=== PATIENT | male | born 1945 | race Caucasian/White ===

== ENCOUNTER → 2018-09-27 11:40 | Outpatient (CLI) | payer MEDICARE, SELFPAY ==
[2018-09-28 17:19] LABS: PSA, Free 2.38 ng/mL; Prostate Specific Ag 4.7 ng/mL (0.0-4.0)
== END ==
PROVIDERS: Visit Provider Urology
DX: R97.20 Elevated prostate specific antigen [PSA] (principal)
CPT/HCPCS: 36415; 84153; 84154

== ENCOUNTER → 2019-06-14 14:18 | Outpatient (CLI) | payer MEDICARE, SELFPAY ==
--- NOTE | 2019-06-14 14:22 | XR_ITS ---
PROCEDURE: XR KNEE RT 4V CLINICAL INDICATION: bilateral knee pain COMPARISON: No exams were available for comparison FINDINGS: Bone density is normal. There is moderate narrowing of the medial compartment and small calcification related to the medial and lateral meniscus areas. There is visualization of intramedullary laura and fixation screws involving proximal tibia. There is a healed fibular shaft fracture. There is no acute fracture or indirect evidence of a joint effusion. There are posterior soft tissue vascular calcified plaques. IMPRESSION: No acute process. Evidence of prior surgery. Healed right fibular fracture. 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 Dictated by: Nathan Stockton 06/14/2019 14:47 Electronically signed by Nathan Stockton in [facility] 06/14/2019 14:47
--- NOTE | 2019-06-14 14:22 | XR_ITS ---
PROCEDURE: XR KNEE LT 4V CLINICAL INDICATION: bilateral knee pain COMPARISON: No exams were available for comparison FINDINGS: Bone density is normal. There is severe narrowing of the medial compartment with medial tibial plateau and medial femoral condyle spur. There are calcific densities related to the lateral meniscus. Patellofemoral joint is normal. There is no joint effusion or acute fracture. There are posterior soft tissue vascular calcified plaques. IMPRESSION: No acute process. 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 There is associated mild varus angulation. Dictated by: Nathan Stockton 06/14/2019 14:49 Electronically signed by Nathan Stockton in [facility] 06/14/2019 14:49
== END ==
PROVIDERS: PCP Emergency Medicine; Visit Provider Orthopaedic Surgery
DX: M25.561 Pain in right knee (principal); M25.562 Pain in left knee
CPT/HCPCS: 73564

== ENCOUNTER → 2019-09-26 12:38 | Outpatient (CLI) | payer MEDICARE, SELFPAY ==
[2019-09-26 13:52] LABS: Prostate Specific Ag, Diagnost 6.13 ng/mL (0.0-4.0)
== END ==
PROVIDERS: Visit Provider Urology
DX: R97.20 Elevated prostate specific antigen [PSA] (principal)
CPT/HCPCS: 36415; 84153

== ENCOUNTER → 2020-08-18 17:58 | Outpatient (CLI) | payer MEDICARE, SELFPAY ==
[2020-08-18 18:32] LABS: Basophils % 0.8 % (0.1-2.0); Eosinophils # 0.1 K/mm3 (0.0-0.4); Eosinophils % 2.5 % (0.1-12.0); Hematocrit 53.1 % (42.0-52.0); Hemoglobin 17.6 g/dL (14.1-18.0); Lymphocytes # 1.2 K/mm3 (0.7-4.5); Lymphocytes % 22.6 % (10-50); Mean Corpuscular HGB Conc 33.1 g/dL (31.8-35.4); Mean Corpuscular Hemoglobin 33.1 pg (27.0-31.2); Mean Corpuscular Volume 100.1 fl (80-94); Mean Platelet Volume 9.6 fl (7.4-10.4); Monocytes # 0.5 K/mm3 (0.1-1.0); Monocytes % 8.8 % (1.7-9.3); Neutrophils # 3.3 K/mm3 (1.8-7.8); Neutrophils % 65.3 % (37.0-80.0); Platelet Count 127 K/mm3 (142-424); Red Cell Distribution Width 14.2 % (11.5-17.5); White Blood Count 5.1 K/mm3 (4.8-10.8)
[2020-08-18 18:57] LABS: Alanine Aminotransferase 16 U/L (12-78); Albumin Level 4.4 g/dl (3.5-5.0); Albumin/Globulin Ratio 1.5 (1.1-1.8); Alkaline Phosphatase 83 U/L (38-126); Anion Gap 12.9 mEq/L (5-15); Aspartate Amino Transferase 35 U/L (17-59); Bilirubin,Total 0.9 mg/dl (0.2-1.3); Blood Urea Nitrogen 19 mg/dl (9-20); Calcium 10.2 mg/dl (8.4-10.2); Carbon Dioxide 33 mmol/L (22.0-30.0); Chloride 100 mmol/L (98-107); Cholesterol 162 mg/dl (140-200); Estimated Glomerular Filt Rate 73 ml/min (>60); GFR (African American) 88 ML/MIN (>60); Globulin 2.9 g/dL (1.3-3.2); Glucose 76 mg/dl (74-100); HDL Cholesterol 54 mg/dl (40-60); Potassium 5.9 mmoL/L (3.5-5.1); Sodium 140 mmol/L (136-145); Total Protein,Serum 7.3 g/dl (6.3-8.2); Triglycerides 146 mg/dl (30-150); VLDL Cholesterol 29 mg/dL (0-40)
[2020-08-18 19:09] LABS: Direct LDL Cholesterol 82.76 mg/dL (100-129)
[2020-08-18 19:14] LABS: Free T4 (Free Thyroxine) 1.11 ng/dl (0.78-2.19)
[2020-08-18 19:15] LABS: 25-OH Vitamin D, Total 31.8 ng/mL (30-100)
[2020-08-18 19:28] LABS: Thyroid Stimulating Hormone 1.63 uIU/mL (0.465-4.68)
== END ==
PROVIDERS: Visit Provider Emergency Medicine
DX: I10 Essential (primary) hypertension (principal); E78.5 Hyperlipidemia, unspecified; E55.9 Vitamin D deficiency, unspecified; Z79.899 Other long term (current) drug therapy
CPT/HCPCS: 80053; 80061; 82306; 84439; 84443; 85025

== ENCOUNTER → 2020-11-19 10:04 | Outpatient (CLI) | payer MEDICARE, SELFPAY ==
[2020-11-20 10:43] LABS: PSA, Free 2.83 ng/mL; Prostate Specific Ag 5.1 ng/mL (0.0-4.0)
== END ==
PROVIDERS: Visit Provider Urology
DX: R97.20 Elevated prostate specific antigen [PSA] (principal)
CPT/HCPCS: 36415; 84153; 84154

== ENCOUNTER → 2022-02-16 14:15 | Outpatient (CLI) | payer MEDICARE, SELFPAY ==
[2022-02-16 13:24] LABS: Basophils # 0.2 K/mm3 (0-0.2); Basophils % 5.1 % (0.1-2.0); Eosinophils # 0.1 K/mm3 (0.0-0.4); Eosinophils % 2.9 % (0.1-12.0); Hematocrit 48.8 % (42.0-52.0); Lymphocytes % 23.4 % (10-50); Mean Corpuscular HGB Conc 32.8 g/dL (31.8-35.4); Mean Corpuscular Hemoglobin 33.2 pg (27.0-31.2); Mean Corpuscular Volume 101.2 fl (80-94); Mean Platelet Volume 9.9 fl (7.4-10.4); Monocytes # 0.3 K/mm3 (0.1-1.0); Monocytes % 6.9 % (1.7-9.3); Neutrophils # 2.8 K/mm3 (1.8-7.8); Neutrophils % 66.9 % (37.0-80.0); Platelet Count 115 K/mm3 (142-424); Red Blood Count 4.83 M/mm3 (4.60-6.20); Red Cell Distribution Width 14.9 % (11.5-17.5); White Blood Count 4.2 K/mm3 (4.8-10.8)
[2022-02-16 13:25] LABS: Alanine Aminotransferase 20 U/L (12-78); Albumin Level 3.7 g/dl (3.5-5.0); Albumin/Globulin Ratio 1.5 (1.1-1.8); Alkaline Phosphatase 69 U/L (38-126); Anion Gap 9.6 mEq/L (5-15); Aspartate Amino Transferase 34 U/L (17-59); Bilirubin,Total 1.1 mg/dl (0.2-1.3); Blood Urea Nitrogen 18 mg/dl (9-20); Calcium 9.2 mg/dl (8.4-10.2); Carbon Dioxide 28 mmol/L (22.0-30.0); Chloride 106 mmol/L (98-107); Chol/HDL Ratio 2.6 (1-3.5); Cholesterol 137 mg/dl (140-200); Estimated Glomerular Filt Rate 82 ml/min (>60); GFR (African American) 99 ML/MIN (>60); Globulin 2.4 g/dL (1.3-3.2); Glucose 127 mg/dl (74-100); HDL Cholesterol 53 mg/dl (40-60); Potassium 4.6 mmoL/L (3.5-5.1); Sodium 139 mmol/L (136-145); Total Protein,Serum 6.1 g/dl (6.3-8.2); Triglycerides 106 mg/dl (30-150); VLDL Cholesterol 21 mg/dL (0-40)
[2022-02-16 13:37] LABS: Direct LDL Cholesterol 53.94 mg/dL (100-129)
[2022-02-16 13:43] LABS: Free T4 (Free Thyroxine) 0.99 ng/dl (0.78-2.19)
[2022-02-16 13:57] LABS: Prostate Specific Ag Screen 4.4 ng/ml (0.0-4.0); Thyroid Stimulating Hormone 1.94 uIU/mL (0.465-4.68)
== END ==
PROVIDERS: PCP Emergency Medicine; Visit Provider Emergency Medicine
DX: E78.5 Hyperlipidemia, unspecified (principal); I10 Essential (primary) hypertension; R53.83 Other fatigue; Z00.00 Encounter for general adult medical examination without abnormal findings; Z12.5 Encounter for screening for malignant neoplasm of prostate; E55.9 Vitamin D deficiency, unspecified
CPT/HCPCS: 80053; 80061; 82306; 84439; 84443; 85025; G0103

== ENCOUNTER → 2022-04-18 07:03 | Outpatient (CLI) | payer MEDICARE, SELFPAY ==
[2022-04-18 17:23] LABS: Basophils # 0.1 K/mm3 (0-0.2); Basophils % 1.6 % (0.1-2.0); Eosinophils # 0.2 K/mm3 (0.0-0.4); Eosinophils % 4.1 % (0.1-12.0); Hemoglobin 16.3 g/dL (14.1-18.0); Lymphocytes % 19.5 % (10-50); Mean Corpuscular HGB Conc 31.3 g/dL (31.8-35.4); Mean Corpuscular Hemoglobin 32.7 pg (27.0-31.2); Mean Corpuscular Volume 104.3 fl (80-94); Mean Platelet Volume 9.6 fl (7.4-10.4); Monocytes # 0.4 K/mm3 (0.1-1.0); Monocytes % 7.6 % (1.7-9.3); Neutrophils # 3.5 K/mm3 (1.8-7.8); Neutrophils % 67.1 % (37.0-80.0); Platelet Count 134 K/mm3 (142-424); Red Blood Count 4.99 M/mm3 (4.60-6.20); Red Cell Distribution Width 14.4 % (11.5-17.5); White Blood Count 5.3 K/mm3 (4.8-10.8)
[2022-04-20 16:52] LABS: Peripheral Smear Review Scanned Result
== END ==
PROVIDERS: PCP Emergency Medicine; Visit Provider Emergency Medicine
DX: E78.5 Hyperlipidemia, unspecified (principal)
CPT/HCPCS: 85025

== ENCOUNTER → 2022-08-08 09:01 | Outpatient (CLI) | payer MEDICARE, SELFPAY ==
[2022-08-08 09:36] LABS: Basophils % 0.8 % (0.1-2.0); Eosinophils # 0.1 K/mm3 (0.0-0.4); Hematocrit 50.1 % (42.0-52.0); Hemoglobin 16.3 g/dL (14.1-18.0); Lymphocytes # 0.8 K/mm3 (0.7-4.5); Lymphocytes % 16.4 % (10-50); Mean Corpuscular HGB Conc 32.6 g/dL (31.8-35.4); Mean Corpuscular Hemoglobin 32.8 pg (27.0-31.2); Mean Corpuscular Volume 100.8 fl (80-94); Mean Platelet Volume 8.7 fl (7.4-10.4); Monocytes # 0.6 K/mm3 (0.1-1.0); Monocytes % 13.2 % (1.7-9.3); Neutrophils # 3.3 K/mm3 (1.8-7.8); Neutrophils % 67.6 % (37.0-80.0); Platelet Count 127 K/mm3 (142-424); Red Blood Count 4.97 M/mm3 (4.60-6.20); Red Cell Distribution Width 14.1 % (11.5-17.5); White Blood Count 4.9 K/mm3 (4.8-10.8)
[2022-08-08 10:25] LABS: Alanine Aminotransferase 13 U/L (12-78); Albumin Level 3.8 g/dl (3.5-5.0); Albumin/Globulin Ratio 1.6 (1.1-1.8); Alkaline Phosphatase 103 U/L (38-126); Anion Gap 16.8 mEq/L (5-15); Aspartate Amino Transferase 25 U/L (17-59); Bilirubin,Total 1.1 mg/dl (0.2-1.3); Blood Urea Nitrogen 24 mg/dl (9-20); Calcium 9.3 mg/dl (8.4-10.2); Carbon Dioxide 28 mmol/L (22.0-30.0); Chloride 98 mmol/L (98-107); Estimated Glomerular Filt Rate 54 ml/min (>60); GFR (African American) 65 ML/MIN (>60); Globulin 2.4 g/dL (1.3-3.2); Glucose 83 mg/dl (74-100); Potassium 3.8 mmoL/L (3.5-5.1); Sodium 139 mmol/L (136-145); Total Protein,Serum 6.2 g/dl (6.3-8.2)
[2022-08-08 10:28] LABS: Erythrocyte Sedimentation Rate 6 mm/hr (0-20)
[2022-08-08 10:30] LABS: C-Reactive Protein 11.2 mg/L (0-4)
[2022-08-08 10:34] LABS: Ethyl Alcohol < 10 mg/dl (0-10)
[2022-08-08 10:57] LABS: Thyroid Stimulating Hormone 1.53 uIU/mL (0.465-4.68)
[2022-08-08 11:33] LABS: Vitamin B12 535 pg/mL (239-931)
[2022-08-08 11:34] LABS: Folate 9.53 ng/mL
[2022-08-09 11:14] LABS: Rapid Plasma Reagin Ab Titer Non Reactive (NonRea<1:1)
[2022-08-12 16:54] LABS: Vitamin B1 201.1 nmol/L (66.5-200.0)
[2022-08-14 23:34] LABS: Antinuclear Antibodies (ANA) NEGATIVE
== END ==
PROVIDERS: PCP Emergency Medicine; Visit Provider Nurse Practitioner Family
DX: G93.40 Encephalopathy, unspecified (principal); I10 Essential (primary) hypertension; I25.10 Atherosclerotic heart disease of native coronary artery without angina pectoris; R41.3 Other amnesia; Z72.0 Tobacco use; Z78.9 Other specified health status; Z86.69 Personal history of other diseases of the nervous system and sense organs
CPT/HCPCS: 36415; 80053; 82607; 82746; 84425; 84443; 85025; 85651; 86038; 86140; 86225; 86235; 86592

== ENCOUNTER → 2022-08-11 12:45 | Outpatient (CLI) | payer MEDICARE, SELFPAY ==
--- NOTE | 2022-08-11 12:46 | MR_ITS ---
FINAL REPORT CLINICAL HISTORY: encephalopathy. MEMORY LOSS. 17ML PROHANCE GIVEN. FINDINGS: Multiplanar MR imaging of the brain was performed without and with contrast. Exam is degraded by motion artifact. On T2 and FLAIR axial images there is mild to moderate abnormal signal in the deep white matter. There is no evidence of intracranial hemorrhage or mass. No abnormal extra-axial fluid collection is seen. The ventricular size is within normal limits. There is no evidence of shift of the midline structures. The posterior fossa and brainstem have an unremarkable appearance. No area of abnormal restricted diffusion is identified. No abnormal contrast enhancement is seen. Normal major vessel vascular flow voids are noted. IMPRESSION: Mild to moderate changes of chronic microvascular ischemia. No acute intracranial abnormality identified. Reviewed, Interpreted and Dictated by Sahil Mondragon MD Transcribed by Marshal Bejarano Authenticated and [facility]
== END ==
PROVIDERS: PCP Emergency Medicine; Visit Provider Nurse Practitioner Family
DX: G93.40 Encephalopathy, unspecified (principal); I10 Essential (primary) hypertension; I25.10 Atherosclerotic heart disease of native coronary artery without angina pectoris; R41.3 Other amnesia; Z72.0 Tobacco use; Z78.9 Other specified health status; Z86.69 Personal history of other diseases of the nervous system and sense organs
CPT/HCPCS: 70553; A9576

== ENCOUNTER 2023-11-03 19:41 | Outpatient (CLI) | payer MEDICARE, SELFPAY ==
[2023-11-03 17:34] LABS: Basophils % 0.3 % (0.1-2.0); Eosinophils # 0.1 K/mm3 (0.0-0.4); Eosinophils % 2.2 % (0.1-12.0); Hematocrit 47.4 % (42.0-52.0); Hemoglobin 15.6 g/dL (14.1-18.0); Lymphocytes # 1.1 K/mm3 (0.7-4.5); Lymphocytes % 20.2 % (10-50); Mean Corpuscular HGB Conc 32.9 g/dL (31.8-35.4); Mean Corpuscular Hemoglobin 33.3 pg (27.0-31.2); Mean Corpuscular Volume 101.1 fl (80-94); Mean Platelet Volume 10.1 fl (7.4-10.4); Monocytes # 0.5 K/mm3 (0.1-1.0); Monocytes % 9.9 % (1.7-9.3); Neutrophils # 3.6 K/mm3 (1.8-7.8); Neutrophils % 67.4 % (37.0-80.0); Platelet Count 106 K/mm3 (142-424); Red Blood Count 4.69 M/mm3 (4.60-6.20); Red Cell Distribution Width 14.2 % (11.5-17.5); White Blood Count 5.3 K/mm3 (4.8-10.8)
[2023-11-03 18:13] LABS: Alanine Aminotransferase 15 U/L (12-78); Albumin Level 3.8 g/dl (3.5-5.0); Albumin/Globulin Ratio 1.7 (1.1-1.8); Alkaline Phosphatase 87 U/L (38-126); Anion Gap 7.5 mEq/L (5-15); Aspartate Amino Transferase 24 U/L (17-59); Bilirubin,Total 0.9 mg/dl (0.2-1.3); Blood Urea Nitrogen 25 mg/dl (9-20); Calcium 9.5 mg/dl (8.4-10.2); Carbon Dioxide 31 mmol/L (22.0-30.0); Chloride 105 mmol/L (98-107); Estimated Glomerular Filt Rate 72 ml/min (>60); GFR (African American) 88 ML/MIN (>60); Globulin 2.2 g/dL (1.3-3.2); Glucose 96 mg/dl (74-100); Potassium 4.5 mmoL/L (3.5-5.1); Sodium 139 mmol/L (136-145)
[2023-11-03 18:41] LABS: Prostate Specific Ag Screen 4.9 ng/ml (0.0-4.0)
== END 2023-11-03 23:59 ==
LOC: LAB.DROPOF 19:41
PROVIDERS: PCP Internal Medicine; Visit Provider Internal Medicine
DX: R53.83 Other fatigue (principal); Z12.5 Encounter for screening for malignant neoplasm of prostate; Z79.899 Other long term (current) drug therapy
CPT/HCPCS: 80053; 85025; G0103

== ENCOUNTER 2024-07-23 13:38 | Observation (INO) | payer MEDICARE, SELFPAY ==
[2024-07-23] VITALS (14 sets, daily range): BP systolic 113–146; BP diastolic 78–103; PULSE 65–110; RESP 16–26; TEMP 36.6–37; O2SAT 94–96; BMI 27.3; BMI 27.7
--- NOTE | 2024-07-23 13:48 | ECG_ITS ---
APPROVED REPORT Exam: Resting ECG HR:94 bpm ECG Measurements Heart Rate 94 AXES QRSd 154 QRS -64 QT 434 T 123 QTc 485 Conclusion ATRIAL FIBRILLATION LEFT AXIS DEVIATION [QRS AXIS < -30] INTRAVENTRICULAR CONDUCTION DELAY [130+ ms QRS DURATION] Electronically signed by : TU APODACA, 07/24/2024 08:18:45
[2024-07-23 14:08] LABS: VBG Base Excess -5.1 mmol/L (-2.4-2.3); VBG HCO3 19.6 mmol/L (23-30); VBG Oxygen Saturation 95.4 % (50-70); VBG PCO2 31.6 mmol/L (35-51); VBG PH 7.41 mmol/L (7.31-7.41); VBG PO2 74.8 mmol/L (28-40); VBG Total CO2 20.6 mmol/L (23-27)
--- NOTE | 2024-07-23 14:08 | XR_ITS ---
FINAL REPORT CLINICAL HISTORY: RESP FAILURE COMPARISON: None FINDINGS: A single portable view of the chest was obtained. The patient has undergone a prior midline sternotomy. Cardiomegaly is present, along with small pleural effusions. The mediastinum is within normal limits. No acute pulmonary abnormality is identified. The bony thorax is intact. IMPRESSION: Cardiomegaly with small pleural effusions. Reviewed, Interpreted and Dictated by David Valerio III, MD Transcribed by Rhonda Metcalf Authenticated and [facility]
[2024-07-23 14:10] LABS: Lactate Venous 2.5 mmol/L (0.4-2.0)
--- NOTE | 2024-07-23 14:11 | [facility].EDCP ---
Discharge Plan Disposition Patient Disposition: Admitted Condition: Serious Clinical Impressions Clinical Impression: Acute hypoxemic respiratory failure, Elevated troponin I level, Bilateral pleural effusion Congestive heart failure Qualifiers: Heart failure type: unspecified Heart failure chronicity: unspecified Qualified Code(s): I50.9 - Heart failure, unspecified Pulmonary edema Qualifiers: Chronicity: acute Qualified Code(s): J81.0 - Acute pulmonary edema Atrial fibrillation Qualifiers: Atrial fibrillation type: unspecified Qualified Code(s): I48.91 - Unspecified atrial fibrillation Discharge ED Provider: Jose Angel Blevins HPI <DULCE MARIA Ruano - Last Filed: 07/23/24 17:44> General Chief Complaint: Shortness of Breath/Dyspnea Stated Complaint: soa, trouble staying awake Time Seen by Provider: 07/23/24 14:06 Mode of Arrival: Ambulatory Source of Information: Patient and Spouse Limitations: No Limitations Description of Symptoms (Recalled from ER Triage Doc. by RN): pt came in for soa that has been going on since the time change, pt has pcp appt next week and pt states his abd looks bigger History of Present Illness HPI narrative: Patient presents for evaluation of dyspnea and weakness. Both the patient and the patient's are poor historians however the patient likely due to possibly undiagnosed dementia although he knows his name does his who is confused on the time and place. Patient's states that he has not been doing well since the time change which suspect means the changed back from daylight savings time. Patient has a past medical history of coronary artery disease status post coronary artery bypass graft and stent placement, hyperlipidemia hyper tension history of alcohol use in the past. Patient himself denies any chest pain fever chills hemoptysis hematochezia melena but reports he it is very difficult for him to breathe. Patient's states that he has dyspnea on exertion even now with minimal tasks. She states she feels like he is swollen everywhere . He does not require oxygen at baseline does not have a diagnosed history in our records of CHF or atrial fibrillation. Related Data Home Medications ?Medication ?Instructions ?Recorded ?Confirmed cholecalciferol (vitamin D3) 25 25 mcg PO DAILY 11/28/22 07/24/24 mcg (1,000 unit) capsule turmeric 100 mg-arely 150 1 cap PO DAILY 11/28/22 07/24/24 mg-olive 50 mg-oreg 150 mg-capryl capsule allopurinol 300 mg tablet 300 mg PO DAILY 07/23/24 07/24/24 atorvastatin 20 mg tablet 20 mg PO DAILY 07/23/24 07/24/24 lisinopril 10 mg tablet 10 mg PO BID 07/23/24 07/24/24 tamsulosin 0.4 mg capsule 0.4 mg PO HS 07/23/24 07/24/24 ascorbic acid (vitamin C) 1,000 mg 1,000 mg PO DAILY 07/24/24 07/24/24 capsule aspirin 81 mg tablet,delayed 81 mg PO DAILY 07/24/24 07/24/24 release Previous Rx's ?Medication ?Instructions ?Recorded thiamine HCl (vitamin B1) 100 mg 100 mg PO DAILY #90 tabs 08/08/22 tablet carvedilol 6.25 mg tablet (Coreg) 6.25 mg PO BID #180 tabs 03/29/24 Allergies Allergy/AdvReac Type Severity Reaction Status Date / Time No Known Allergies Allergy Verified 11/17/23 10:57 PFSH <DULCE MARIA Ruano - Last Filed: 07/23/24 17:44> [facility] Disclaimer: The information contained in this section may have been updated after the patient was seen, as this information can be updated by other users. Medical History (Updated 07/23/24 @ 16:34 by DULCE MARIA Ruano) Gout High cholesterol Hypertension Surgical History (Updated 11/17/23 @ 11:01 by ELLIOT Amor) History of open heart surgery Hx of heart artery stent Family History Other Coronary artery disease Hypertension Social History Smoking Status: Never smoker alcohol intake: current alcohol intake frequency: a few times a week substance use type: denies use current occupational status: retired Travel in the last 8 weeks: None household members: spouse housing: house marital status: Other Medical History Have you received the Flu Vaccine for this season: Yes Have you received the Pneumonia Vaccine: No <DULCE MARIA Ruano - Last Filed: 07/23/24 17:44> ROS Obtained: Yes Systems reviewed as appropriate & no additional complaints except as documented Physical Exam <DULCE MARIA Ruano - Last Filed: 07/23/24 17:44> General General appearance: alert and in no apparent distress Respiratory Respiratory exam: Absent normal lung sounds bilaterally (Patient has tachypnea and increased work of breathing however auscultation does not reveal any adventitious sounds but his breath sounds are diminished at the bases.) or accessory muscle use Cardiovascular Cardiovascular exam: Present irregular rhythm; Absent normal heart sounds Neurological Exam Neurological exam: Present alert and oriented X3 HEART Score <DULCE MARIA Ruano - Last Filed: 07/23/24 17:44> HEART Score HEART Score assessment performed?: No History (anamnesis): Slightly suspicious ECG: Non-specific disturbance Age: >65 years Risk factors: Atherosclerosis history Troponin: 1-3x normal limit HEART Score: 6 <Jose Angel Blevins MD - Last Filed: 07/24/24 10:37> HEART Score HEART Score: 6 Critical Care <DULCE MARIA Ruano - Last Filed: 07/23/24 17:44> Critical Care Time Critical Care Time: Yes Attestation: On 07/23/24, the high probability of a clinically significant, sudden or life threatening deterioration of the following system: Cardiopulmonary; required my full and direct attention, intervention and personal management. The time I documented below is in addition to time spent performing reported procedures but includes the following listed in this critical care notation. Total Time Total Critical Care Time: 30 Medical Decision Making <DULCE MARIA Ruano - Last Filed: 07/23/24 17:44> Medical Records Medical records reviewed: Yes I reviewed the patient's medical records. [place] Inquiry Pt receiving controlled substance: No Vital Signs Vital Signs: 07/23/24 13:39 07/23/24 13:45 07/23/24 14:08 Temperature 98.6 F Temperature Source Oral Pulse Rate 96 H 102 H Pulse Rate [Right Radial] 102 H Respiratory Rate 18 26 H 25 H Blood Pressure 122/78 113/95 H Blood Pressure [Right Arm] 116/89 Blood Pressure Mean 92 99 Blood Pressure Mean [Right Arm] 98 02 Sat by Pulse Oximetry 95 94 L 95 Oxygen Delivery Method Room Air Oxygen Flow Rate (LPM) 07/23/24 14:15 07/23/24 14:30 07/23/24 14:45 Temperature Temperature Source Pulse Rate 75 105 H 82 Pulse Rate [Right Radial] Respiratory Rate 25 H Blood Pressure 125/93 H 130/100 H 117/81 Blood Pressure [Right Arm] Blood Pressure Mean 100 109 93 Blood Pressure Mean [Right Arm] 02 Sat by Pulse Oximetry 95 95 96 Oxygen Delivery Method Oxygen Flow Rate (LPM) 07/23/24 15:00 07/23/24 15:15 07/23/24 16:15 Temperature Temperature Source Pulse Rate 85 65 Pulse Rate [Right Radial] Respiratory Rate 19 Blood Pressure 136/96 H 129/85 127/88 Blood Pressure [Right Arm] Blood Pressure Mean 108 99 Blood Pressure Mean [Right Arm] 02 Sat by Pulse Oximetry 95 95 Oxygen Delivery Method Oxygen Flow Rate (LPM) 07/23/24 16:30 07/23/24 16:45 07/23/24 17:25 Temperature 98.2 F Temperature Source Pulse Rate 95 H 101 H 96 H Pulse Rate [Right Radial] Respiratory Rate 23 21 24 Blood Pressure 134/91 H 146/103 H 137/97 H Blood Pressure [Right Arm] Blood Pressure Mean Blood Pressure Mean [Right Arm] 02 Sat by Pulse Oximetry 96 95 Oxygen Delivery Method Nasal Cannula Oxygen Flow Rate (LPM) 2 Lab Data Lab results reviewed: Yes I reviewed the patient's lab results. Labs: Lab Results 07/23/24 13:45: WBC 6.3, RBC 5.06, Hgb 15.7, Hct 47.2, MCV 93.3, MCH 31.0, MCHC 33.3, RDW 15.1, Plt Count 123 L, MPV 8.9, Neut % (Auto) 69.6, Lymph % (Auto) 17.5, [place] % (Auto) 11.6 H, Eos % (Auto) 0.9, Baso % (Auto) 0.5, Neut # (Auto) 4.4, Lymph # (Auto) 1.1, [place] # (Auto) 0.7, Eos # (Auto) 0.1, Baso # (Auto) 0.0, PT 12.3, INR 1.11 H, D-Dimer 1.63 H, Sodium 139, Potassium 4.4, Chloride 109 H, Carbon Dioxide 23, Anion Gap 11.4, BUN 28 H, Creatinine 1.20, Estimated Creat Clear 57, Estimated GFR 59, Est GFR ( Amer) 71, Glucose 85, Calcium 9.3, Magnesium 1.9, Total Bilirubin 1.5 H, AST 49, ALT 64, Alkaline Phosphatase 76, Troponin I 0.05 H, NT-Pro-B Natriuret Pep 4520 H, Total Protein 5.4 L, Albumin 3.5, Globulin 1.9, Albumin/Globulin Ratio 1.8, Lipase 200, Procalcitonin 0.067, TSH 2.35, Free T4 Index 3.6 L, Thyroxine (T4) 7.8, T3 Uptake 46 H, Hepatitis C Antibody Non reactive, HIV 1&2 Antibody Rapid Nonreactive 07/23/24 14:04: VBG pH 7.41, VBG pCO2 31.6 L, VBG pO2 74.8 H, VBG HCO3 19.6 L, VBG Total CO2 20.6 L, VBG O2 Saturation 95.4 H, VBG Base Excess -5.1 L, VBG Lactic Acid 2.5 H 07/23/24 14:25: SARS-CoV-2 (PCR) Not detected, Influenza A Untype (PCR) Not detected, Influenza Type B (PCR) Not detected 07/23/24 15:49: Urine Color Yellow, Urine Appearance Clear, Urine pH 5.5, Ur Specific [place] >= 1.030, Urine Protein 2+ A, Urine Glucose (UA) Negative, Urine Ketones Trace, Urine Blood 2+ A, Urine Nitrate Negative, Urine Bilirubin Negative, Urine Urobilinogen 0.2, Ur Leukocyte Esterase Negative, Urine RBC Tntc, Urine WBC 3-5, Ur Squamous Epith Cells 5-10, Ur Transition Epith Cell 10-20, Urine Bacteria 1+, Urine Mucus 1+ 07/24/24 07:27 07/24/24 07:27 Response Orders (Tests/Meds): ED MEDICATIONS Generic Name Dose Route Start Last Admin Trade Name Freq PRN Reason Stop Dose Admin Acetaminophen 650 mg 07/23/24 17:03 Acetaminophen 325mg Tab PO 08/22/24 17:02 Q4HP PRN Fever or Mild Pain (1-3) Aspirin 81 mg 07/24/24 09:00 07/24/24 09:07 Aspirin Ec 81mg Tablet PO 08/23/24 08:59 81 mg DAILY ERIC Administration Atorvastatin Calcium 20 mg 07/24/24 21:00 Atorvastatin 20mg Tablet PO 08/23/24 20:59 HS ERIC Carvedilol 6.25 mg 07/24/24 09:00 07/24/24 09:06 Carvedilol 6.25mg Tablet PO 08/23/24 08:59 6.25 mg BID ERIC Administration Enoxaparin Sodium 80 mg 07/24/24 08:00 07/24/24 07:20 Enoxaparin 80mg/0.8ml Syringe SUBCUT 08/23/24 07:59 Not Given Q12H ERIC Fentanyl Citrate 50 mcg 07/24/24 10:19 Fentanyl 100mcg/2ml Vial IV 07/24/24 22:19 Q3MINP PRN Sedation Fentanyl Citrate 25 mcg 07/24/24 10:19 Fentanyl 100mcg/2ml Vial IV 07/24/24 22:19 Q3MINP PRN Sedation Flumazenil 0.2 mg 07/24/24 10:19 Flumazenil 0.1mg/Ml 5ml Vial IV 07/24/24 22:19 NEEDED PRN Sedation Furosemide 60 mg 07/24/24 09:00 07/24/24 09:07 Furosemide 40mg/4ml Vial IV 08/23/24 08:59 60 mg BIDL ERIC Administration Heparin Sodium (Porcine) 10,000 unit 07/24/24 10:19 Heparin 1,000 Units/Ml 10ml Vial (Software Recruiter) IV 07/24/24 14:19 NEEDED PRN Emergency Box Equity Structurer Hydralazine HCl 20 mg 07/24/24 10:19 Hydralazine 20mg/Ml Vial IV 07/24/24 14:19 ONCE PRN sbp>160 Adenosine 180 mg/ Sodium 90 mls @ 430.92 mls/hr 07/24/24 10:19 Chloride IV 07/24/24 14:19 ONCE PRN fractional flow reserve 180 MCG/KG/MIN Adenosine 90 mg/ Sodium 90 mls @ 861.84 mls/hr 07/24/24 10:19 Chloride IV 07/24/24 14:19 ONCE PRN fractional flow reserve 180 MCG/KG/MIN Sodium Chloride 1,000 mls @ 25 mls/hr 07/24/24 10:30 Sod Chloride 0.9% 500ml Bag IV 07/25/24 10:19 .Q25H ERIC Labetalol HCl 20 mg 07/24/24 10:19 Labetalol 20mg/4ml Syringe IV 07/24/24 14:19 ONCE PRN sbp>160 Lisinopril 10 mg 07/24/24 09:00 07/24/24 09:06 Lisinopril 10mg Tablet PO 08/23/24 08:59 10 mg DAILY ERIC Administration Midazolam HCl 1 mg 07/24/24 10:19 Midazolam 2mg/2ml Vial IV 07/24/24 22:19 Q3MINP PRN Sedation Midazolam HCl 1 mg 07/24/24 10:19 Midazolam Hcl 1mg/Ml 5ml Vial IV 07/24/24 22:19 Q3MINP PRN Sedation Naloxone HCl 0.4 mg 07/24/24 10:19 Naloxone 0.4mg/Ml Vial IV 07/24/24 22:19 Q5MINP PRN Decreased Respirations Nitroglycerin 800 mcg 07/24/24 10:19 Nitroglycerin 800mcg/8ml Syr (Software Recruiter) IA 07/24/24 14:19 NEEDED PRN Emergency Box Equity Structurer Ondansetron HCl 4 mg 07/23/24 17:03 Ondansetron 4mg/2ml Vial IV 08/22/24 17:02 Q8HP PRN Nausea Protamine Sulfate 50 mg 07/24/24 10:19 Protamine Sulfate 50mg/5ml Vial (Software Recruiter) IV 07/24/24 14:19 ONCE PRN act>200 Sodium Chloride 10 ml 07/24/24 10:19 Sodium Chloride 0.9% 10ml Flush Syringe IV 08/23/24 10:18 NEEDED PRN Maintain IV Site Tamsulosin HCl 0.4 mg 07/24/24 21:00 Tamsulosin 0.4mg Capsule PO 08/23/24 20:59 HS ERIC Discontinued Medications Generic Name Dose Route Start Last Admin Trade Name Freq PRN Reason Stop Dose Admin Diphenhydramine HCl 50 mg 07/24/24 09:56 Diphenhydramine 50mg/Ml Vial IV 07/24/24 09:57 ONCE ONE Enoxaparin Sodium 80 mg 07/23/24 17:15 07/24/24 05:15 Enoxaparin 100mg/Ml Syringe 1 mg/kg (80 mg) 08/22/24 17:14 80 mg SUBCUT Administration Q12H ERIC Furosemide 80 mg 07/23/24 14:53 07/23/24 15:18 Furosemide 40mg/4ml Vial IV 07/23/24 14:54 80 mg ONCE ONE Administration Heparin Sodium/Sodium Chloride 3,000 unit 07/24/24 10:19 Heparin 1,000 Units/500ml Ns (Software Recruiter) IV 07/24/24 10:20 ONCE ONE Magnesium Sulfate 2 gm in 50 mls @ 50 mls/hr 07/23/24 14:17 07/23/24 14:51 Magnesium Sulfate 2gm/50ml Premix IV 07/23/24 15:16 50 mls/hr ONCE ONE Administration Iopamidol 70 ml 07/23/24 15:37 07/23/24 15:38 Iopamidol-370 (76%);100ml Bottle IV 07/23/24 15:38 70 ml ONCE ONE Administration Lidocaine HCl 20 ml 07/24/24 10:19 Lidocaine 1% 10ml Mdv IJ 07/24/24 10:20 ONCE ONE Lidocaine HCl 20 ml 07/24/24 10:19 Lidocaine 1% 5ml Pf Vial IJ 07/24/24 10:20 ONCE ONE Magnesium Oxide 800 mg 07/23/24 14:18 07/23/24 14:51 Magnesium Oxide 400mg Tablet PO 07/23/24 14:19 800 mg ONCE ONE Administration Sodium Chloride 10 ml 07/23/24 15:37 07/23/24 15:38 Sodium Chloride 0.9% 10ml Syr (Rad Only) IV 07/23/24 15:38 10 ml ONCE ONE Administration Sodium Chloride 50 ml 07/23/24 15:37 07/23/24 15:38 0.9 % Sodium Chloride 50 Ml Vial IV 07/23/24 15:38 50 ml ONCE ONE Administration Verapamil HCl 2.5 mg 07/24/24 10:19 Verapamil 2.5mg/Ml 2ml Vial IV 07/24/24 10:20 ONCE ONE ORDERS Category Date Time Status CT abdomen pelvis w con Stat Cat Scan 07/23/24 14:[address] angio chest PE protocol Stat Cat Scan 07/23/24 14:43 Taken XR chest portable Stat Exams 07/23/24 14:08 Taken BNP [NT Pro Brain Natriuretic Pep.] Stat Lab 07/23/24 13:45 Completed Complete Blood Count Auto Diff AMLAB Lab 07/24/24 07:27 Completed Complete Blood Count Auto Diff AMLAB Lab 07/25/24 06:00 Ordered Complete Blood Count Auto Diff AMLAB Lab 07/26/24 06:00 Ordered Complete Blood Count Auto Diff AMLAB Lab 07/27/24 06:00 Ordered Complete Blood Count Auto Diff AMLAB Lab 07/28/24 06:00 Ordered Complete Blood Count Auto Diff Stat Lab 07/23/24 13:45 Completed Comprehensive Metabolic Panel AMLAB Lab 07/24/24 07:27 Completed Comprehensive Metabolic Panel AMLAB Lab 07/25/24 06:00 Ordered Comprehensive Metabolic Panel AMLAB Lab 07/26/24 06:00 Ordered Comprehensive Metabolic Panel AMLAB Lab 07/27/24 06:00 Ordered Comprehensive Metabolic Panel AMLAB Lab 07/28/24 06:00 Ordered Comprehensive Metabolic Panel Stat Lab 07/23/24 13:45 Completed D-Dimer Stat Lab 07/23/24 13:45 Completed HIV (1&2) Antibody Rapid Stat Lab 07/23/24 13:45 Completed Hep C Ab with Reflex to RNA Stat Lab 07/23/24 13:45 Completed INR [Prothrombin Time INR] Stat Lab 07/23/24 13:45 Completed Lipase Stat Lab 07/23/24 13:45 Completed Magnesium AMLAB Lab 07/24/24 07:27 Completed Magnesium AMLAB Lab 07/25/24 06:00 Ordered Magnesium AMLAB Lab 07/26/24 06:00 Ordered Magnesium AMLAB Lab 07/27/24 06:00 Ordered Magnesium AMLAB Lab 07/28/24 06:00 Ordered Magnesium Stat Lab 07/23/24 13:45 Completed Procalcitonin Stat Lab 07/23/24 13:45 Completed Rapid PCR Covid and Flu A/B Stat Lab 07/23/24 14:25 Completed Thyroid Panel Stat Lab 07/23/24 13:45 Completed Troponin I Q3H Lab 07/23/24 18:28 Completed Troponin I Q3H Lab 07/23/24 20:27 Completed Troponin I Stat Lab 07/23/24 13:45 Completed UA [Urinalysis and Microscopic] Stat Lab 07/23/24 15:49 Completed VBG [Venous Blood Gas] Stat RT 07/23/24 14:04 Completed MDM Narrative Medical Decision Narrative: In summary patient is a 79-year-old male who presents to the emergency department for evaluation of dyspnea. Patient on arrival patient has a blood pressure of 116/69 a heart rate of 102 that appears to be atrial fibrillation on the bedside monitor breathing 18 times a minute with an O2 sat of 95% on 2 L by nasal cannula, afebrile. Physical exam is remarkable for an unwell appearing 79-year-old gentleman who has increased work of breathing but no accessory muscle use. Patient has diminished breath sounds at the bases but no adventitious sounds. Patient has trace dependent edema noted. Patient appears to be abdominally distended however the abdomen is soft without rebound or guarding or rigidity.. Differential diagnosis includes CHF versus volume overload versus A-fib RVR versus NSTEMI versus infection etc. Initial workup will be conducted with hematologic labs CT scan chest abdomen pelvis urinalysis. Initial interventions include 2 g of magnesium IV p.o. magnesium 80 mg of Lasix supplemental O2 continuous pulse oximetry and continuous cardiac monitoring. Initial workup reviewed by me shows a normal white count however patient's troponin is positive at 0.05 with his NT proBNP at 4520 negative COVID and flu swabs. My informal tryptase of his plain from chest x-ray shows pulmonary edema and probable bilateral pleural effusions. My informal interpretation of his CTA chest abdomen pelvis shows bilateral pleural effusions, pulmonary edema, no thrombus in gallbladder was wall thickening and gallstones but no evidence of acute cholecystitis on imaging and a small amount of ascites. Given this I had a interactive discussion with hospital medicine regarding patient management and he will be admitted for further evaluation and care. Patient's patient is a full code <Jose Angel Blevins MD - Last Filed: 07/24/24 10:37> Vital Signs Vital Signs: 07/23/24 13:39 07/23/24 13:45 07/23/24 14:08 Temperature 98.6 F Temperature Source Oral Pulse Rate 96 H 102 H Pulse Rate [Right Radial] 102 H Respiratory Rate 18 26 H 25 H Blood Pressure 122/78 113/95 H Blood Pressure [Right Arm] 116/89 Blood Pressure Mean 92 99 Blood Pressure Mean [Right Arm] 98 02 Sat by Pulse Oximetry 95 94 L 95 Oxygen Delivery Method Room Air Oxygen Flow Rate (LPM) 07/23/24 14:15 07/23/24 14:30 07/23/24 14:45 Temperature Temperature Source Pulse Rate 75 105 H 82 Pulse Rate [Right Radial] Respiratory Rate 25 H Blood Pressure 125/93 H 130/100 H 117/81 Blood Pressure [Right Arm] Blood Pressure Mean 100 109 93 Blood Pressure Mean [Right Arm] 02 Sat by Pulse Oximetry 95 95 96 Oxygen Delivery Method Oxygen Flow Rate (LPM) 07/23/24 15:00 07/23/24 15:15 07/23/24 16:15 Temperature Temperature Source Pulse Rate 85 65 Pulse Rate [Right Radial] Respiratory Rate 19 Blood Pressure 136/96 H 129/85 127/88 Blood Pressure [Right Arm] Blood Pressure Mean 108 99 Blood Pressure Mean [Right Arm] 02 Sat by Pulse Oximetry 95 95 Oxygen Delivery Method Oxygen Flow Rate (LPM) 07/23/24 16:30 07/23/24 16:45 07/23/24 17:25 Temperature 98.2 F Temperature Source Pulse Rate 95 H 101 H 96 H Pulse Rate [Right Radial] Respiratory Rate 23 21 24 Blood Pressure 134/91 H 146/103 H 137/97 H Blood Pressure [Right Arm] Blood Pressure Mean Blood Pressure Mean [Right Arm] 02 Sat by Pulse Oximetry 96 95 Oxygen Delivery Method Nasal Cannula Oxygen Flow Rate (LPM) 2 Lab Data Labs: Lab Results 07/23/24 13:45: WBC 6.3, RBC 5.06, Hgb 15.7, Hct 47.2, MCV 93.3, MCH 31.0, MCHC 33.3, RDW 15.1, Plt Count 123 L, MPV 8.9, Neut % (Auto) 69.6, Lymph % (Auto) 17.5, [place] % (Auto) 11.6 H, Eos % (Auto) 0.9, Baso % (Auto) 0.5, Neut # (Auto) 4.4, Lymph # (Auto) 1.1, [place] # (Auto) 0.7, Eos # (Auto) 0.1, Baso # (Auto) 0.0, PT 12.3, INR 1.11 H, D-Dimer 1.63 H, Sodium 139, Potassium 4.4, Chloride 109 H, Carbon Dioxide 23, Anion Gap 11.4, BUN 28 H, Creatinine 1.20, Estimated Creat Clear 57, Estimated GFR 59, Est GFR ( Amer) 71, Glucose 85, Calcium 9.3, Magnesium 1.9, Total Bilirubin 1.5 H, AST 49, ALT 64, Alkaline Phosphatase 76, Troponin I 0.05 H, NT-Pro-B Natriuret Pep 4520 H, Total Protein 5.4 L, Albumin 3.5, Globulin 1.9, Albumin/Globulin Ratio 1.8, Lipase 200, Procalcitonin 0.067, TSH 2.35, Free T4 Index 3.6 L, Thyroxine (T4) 7.8, T3 Uptake 46 H, Hepatitis C Antibody Non reactive, HIV 1&2 Antibody Rapid Nonreactive 07/23/24 14:04: VBG pH 7.41, VBG pCO2 31.6 L, VBG pO2 74.8 H, VBG HCO3 19.6 L, VBG Total CO2 20.6 L, VBG O2 Saturation 95.4 H, VBG Base Excess -5.1 L, VBG Lactic Acid 2.5 H 07/23/24 14:25: SARS-CoV-2 (PCR) Not detected, Influenza A Untype (PCR) Not detected, Influenza Type B (PCR) Not detected 07/23/24 15:49: Urine Color Yellow, Urine Appearance Clear, Urine pH 5.5, Ur Specific [place] >= 1.030, Urine Protein 2+ A, Urine Glucose (UA) Negative, Urine Ketones Trace, Urine Blood 2+ A, Urine Nitrate Negative, Urine Bilirubin Negative, Urine Urobilinogen 0.2, Ur Leukocyte Esterase Negative, Urine RBC Tntc, Urine WBC 3-5, Ur Squamous Epith Cells 5-10, Ur Transition Epith Cell 10-20, Urine Bacteria 1+, Urine Mucus 1+ Response Orders (Tests/Meds): ED MEDICATIONS Generic Name Dose Route Start Last Admin Trade Name Freq PRN Reason Stop Dose Admin Acetaminophen 650 mg 07/23/24 17:03 Acetaminophen 325mg Tab PO 08/22/24 17:02 Q4HP PRN Fever or Mild Pain (1-3) Aspirin 81 mg 07/24/24 09:00 07/24/24 09:07 Aspirin Ec 81mg Tablet PO 08/23/24 08:59 81 mg DAILY ERIC Administration Atorvastatin Calcium 20 mg 07/24/24 21:00 Atorvastatin 20mg Tablet PO 08/23/24 20:59 HS ERIC Carvedilol 6.25 mg 07/24/24 09:00 07/24/24 09:06 Carvedilol 6.25mg Tablet PO 08/23/24 08:59 6.25 mg BID ERIC Administration Enoxaparin Sodium 80 mg 07/24/24 08:00 07/24/24 07:20 Enoxaparin 80mg/0.8ml Syringe SUBCUT 08/23/24 07:59 Not Given Q12H ERIC Fentanyl Citrate 50 mcg 07/24/24 10:19 Fentanyl 100mcg/2ml Vial IV 07/24/24 22:19 Q3MINP PRN Sedation Fentanyl Citrate 25 mcg 07/24/24 10:19 Fentanyl 100mcg/2ml Vial IV 07/24/24 22:19 Q3MINP PRN Sedation Flumazenil 0.2 mg 07/24/24 10:19 Flumazenil 0.1mg/Ml 5ml Vial IV 07/24/24 22:19 NEEDED PRN Sedation Furosemide 60 mg 07/24/24 09:00 07/24/24 09:07 Furosemide 40mg/4ml Vial IV 08/23/24 08:59 60 mg BIDL ERIC Administration Heparin Sodium (Porcine) 10,000 unit 07/24/24 10:19 Heparin 1,000 Units/Ml 10ml Vial (Software Recruiter) IV 07/24/24 14:19 NEEDED PRN Emergency Box Equity Structurer Hydralazine HCl 20 mg 07/24/24 10:19 Hydralazine 20mg/Ml Vial IV 07/24/24 14:19 ONCE PRN sbp>160 Adenosine 180 mg/ Sodium 90 mls @ 430.92 mls/hr 07/24/24 10:19 Chloride IV 07/24/24 14:19 ONCE PRN fractional flow reserve 180 MCG/KG/MIN Adenosine 90 mg/ Sodium 90 mls @ 861.84 mls/hr 07/24/24 10:19 Chloride IV 07/24/24 14:19 ONCE PRN fractional flow reserve 180 MCG/KG/MIN Sodium Chloride 1,000 mls @ 25 mls/hr 07/24/24 10:30 Sod Chloride 0.9% 500ml Bag IV 07/25/24 10:19 .Q25H ERIC Labetalol HCl 20 mg 07/24/24 10:19 Labetalol 20mg/4ml Syringe IV 07/24/24 14:19 ONCE PRN sbp>160 Lisinopril 10 mg 07/24/24 09:00 07/24/24 09:06 Lisinopril 10mg Tablet PO 08/23/24 08:59 10 mg DAILY ERIC Administration Midazolam HCl 1 mg 07/24/24 10:19 Midazolam 2mg/2ml Vial IV 07/24/24 22:19 Q3MINP PRN Sedation Midazolam HCl 1 mg 07/24/24 10:19 Midazolam Hcl 1mg/Ml 5ml Vial IV 07/24/24 22:19 Q3MINP PRN Sedation Naloxone HCl 0.4 mg 07/24/24 10:19 Naloxone 0.4mg/Ml Vial IV 07/24/24 22:19 Q5MINP PRN Decreased Respirations Nitroglycerin 800 mcg 07/24/24 10:19 Nitroglycerin 800mcg/8ml Syr (Software Recruiter) IA 07/24/24 14:19 NEEDED PRN Emergency Box Equity Structurer Ondansetron HCl 4 mg 07/23/24 17:03 Ondansetron 4mg/2ml Vial IV 08/22/24 17:02 Q8HP PRN Nausea Protamine Sulfate 50 mg 07/24/24 10:19 Protamine Sulfate 50mg/5ml Vial (Software Recruiter) IV 07/24/24 14:19 ONCE PRN act>200 Sodium Chloride 10 ml 07/24/24 10:19 Sodium Chloride 0.9% 10ml Flush Syringe IV 08/23/24 10:18 NEEDED PRN Maintain IV Site Tamsulosin HCl 0.4 mg 07/24/24 21:00 Tamsulosin 0.4mg Capsule PO 08/23/24 20:59 HS ERIC Discontinued Medications Generic Name Dose Route Start Last Admin Trade Name Freq PRN Reason Stop Dose Admin Diphenhydramine HCl 50 mg 07/24/24 09:56 Diphenhydramine 50mg/Ml Vial IV 07/24/24 09:57 ONCE ONE Enoxaparin Sodium 80 mg 07/23/24 17:15 07/24/24 05:15 Enoxaparin 100mg/Ml Syringe 1 mg/kg (80 mg) 08/22/24 17:14 80 mg SUBCUT Administration Q12H ERIC Furosemide 80 mg 07/23/24 14:53 07/23/24 15:18 Furosemide 40mg/4ml Vial IV 07/23/24 14:54 80 mg ONCE ONE Administration Heparin Sodium/Sodium Chloride 3,000 unit 07/24/24 10:19 Heparin 1,000 Units/500ml Ns (Software Recruiter) IV 07/24/24 10:20 ONCE ONE Magnesium Sulfate 2 gm in 50 mls @ 50 mls/hr 07/23/24 14:17 07/23/24 14:51 Magnesium Sulfate 2gm/50ml Premix IV 07/23/24 15:16 50 mls/hr ONCE ONE Administration Iopamidol 70 ml 07/23/24 15:37 07/23/24 15:38 Iopamidol-370 (76%);100ml Bottle IV 07/23/24 15:38 70 ml ONCE ONE Administration Lidocaine HCl 20 ml 07/24/24 10:19 Lidocaine 1% 10ml Mdv IJ 07/24/24 10:20 ONCE ONE Lidocaine HCl 20 ml 07/24/24 10:19 Lidocaine 1% 5ml Pf Vial IJ 07/24/24 10:20 ONCE ONE Magnesium Oxide 800 mg 07/23/24 14:18 07/23/24 14:51 Magnesium Oxide 400mg Tablet PO 07/23/24 14:19 800 mg ONCE ONE Administration Sodium Chloride 10 ml 07/23/24 15:37 07/23/24 15:38 Sodium Chloride 0.9% 10ml Syr (Rad Only) IV 07/23/24 15:38 10 ml ONCE ONE Administration Sodium Chloride 50 ml 07/23/24 15:37 07/23/24 15:38 0.9 % Sodium Chloride 50 Ml Vial IV 07/23/24 15:38 50 ml ONCE ONE Administration Verapamil HCl 2.5 mg 07/24/24 10:19 Verapamil 2.5mg/Ml 2ml Vial IV 07/24/24 10:20 ONCE ONE ORDERS Category Date Time Status CT abdomen pelvis w con Stat Cat Scan 07/23/24 14:[address] angio chest PE protocol Stat Cat Scan 07/23/24 14:43 Taken XR chest portable Stat Exams 07/23/24 14:08 Taken BNP [NT Pro Brain Natriuretic Pep.] Stat Lab 07/23/24 13:45 Completed Complete Blood Count Auto Diff AMLAB Lab 07/24/24 07:27 Completed Complete Blood Count Auto Diff AMLAB Lab 07/25/24 06:00 Ordered Complete Blood Count Auto Diff AMLAB Lab 07/26/24 06:00 Ordered Complete Blood Count Auto Diff AMLAB Lab 07/27/24 06:00 Ordered Complete Blood Count Auto Diff AMLAB Lab 07/28/24 06:00 Ordered Complete Blood Count Auto Diff Stat Lab 07/23/24 13:45 Completed Comprehensive Metabolic Panel AMLAB Lab 07/24/24 07:27 Completed Comprehensive Metabolic Panel AMLAB Lab 07/25/24 06:00 Ordered Comprehensive Metabolic Panel AMLAB Lab 07/26/24 06:00 Ordered Comprehensive Metabolic Panel AMLAB Lab 07/27/24 06:00 Ordered Comprehensive Metabolic Panel AMLAB Lab 07/28/24 06:00 Ordered Comprehensive Metabolic Panel Stat Lab 07/23/24 13:45 Completed D-Dimer Stat Lab 07/23/24 13:45 Completed HIV (1&2) Antibody Rapid Stat Lab 07/23/24 13:45 Completed Hep C Ab with Reflex to RNA Stat Lab 07/23/24 13:45 Completed INR [Prothrombin Time INR] Stat Lab 07/23/24 13:45 Completed Lipase Stat Lab 07/23/24 13:45 Completed Magnesium AMLAB Lab 07/24/24 07:27 Completed Magnesium AMLAB Lab 07/25/24 06:00 Ordered Magnesium AMLAB Lab 07/26/24 06:00 Ordered Magnesium AMLAB Lab 07/27/24 06:00 Ordered Magnesium AMLAB Lab 07/28/24 06:00 Ordered Magnesium Stat Lab 07/23/24 13:45 Completed Procalcitonin Stat Lab 07/23/24 13:45 Completed Rapid PCR Covid and Flu A/B Stat Lab 07/23/24 14:25 Completed Thyroid Panel Stat Lab 07/23/24 13:45 Completed Troponin I Q3H Lab 07/23/24 18:28 Completed Troponin I Q3H Lab 07/23/24 20:27 Completed Troponin I Stat Lab 07/23/24 13:45 Completed UA [Urinalysis and Microscopic] Stat Lab 07/23/24 15:49 Completed VBG [Venous Blood Gas] Stat RT 07/23/24 14:04 Completed ECG Data Tracing #1: Attestation: I reviewed this ECG and interpreted as documented below: (Atrial fibrillation 94 beats a minute. Left axis deviation with what appears to be bifascicular block. QRS 154, QTc prolonged at 485.) MDM Narrative Medical Decision Narrative: In summary patient is a 79-year-old male who presents to the emergency department for evaluation of dyspnea. Patient on arrival patient has a blood pressure of 116/69 a heart rate of 102 that appears to be atrial fibrillation on the bedside monitor breathing 18 times a minute with an O2 sat of 95% on 2 L by nasal cannula, afebrile. Physical exam is remarkable for an unwell appearing 79-year-old gentleman who has increased work of breathing but no accessory muscle use. Patient has diminished breath sounds at the bases but no adventitious sounds. Patient has trace dependent edema noted. Patient appears to be abdominally distended however the abdomen is soft without rebound or guarding or rigidity.. Differential diagnosis includes CHF versus volume overload versus A-fib RVR versus NSTEMI versus infection etc. Initial workup will be conducted with hematologic labs CT scan chest abdomen pelvis urinalysis. Initial interventions include 2 g of magnesium IV p.o. magnesium 80 mg of Lasix supplemental O2 continuous pulse oximetry and continuous cardiac monitoring. Initial workup reviewed by me shows a normal white count however patient's troponin is positive at 0.05 with his NT proBNP at 4520 negative COVID and flu swabs. My informal tryptase of his plain from chest x-ray shows pulmonary edema and probable bilateral pleural effusions. My informal interpretation of his CTA chest abdomen pelvis shows bilateral pleural effusions, pulmonary edema, no thrombus in gallbladder was wall thickening and gallstones but no evidence of acute cholecystitis on imaging and a small amount of ascites. Given this I had a interactive discussion with hospital medicine regarding patient management and he will be admitted for further evaluation and care. Patient's patient is a full code I was consulted by the JOSÉ MIGUEL, and we discussed the complexity of the problems being addressed. I approved the treatment and management plan for this patient's care in the Emergency Department, thus performing a substantive portion of the medical decision making. Jose Angel Blevins MD
[2024-07-23 14:19] LABS: Basophils % 0.5 % (0.1-2.0); Eosinophils # 0.1 K/mm3 (0.0-0.4); Eosinophils % 0.9 % (0.1-12.0); Hematocrit 47.2 % (42.0-52.0); Hemoglobin 15.7 g/dL (14.1-18.0); Lymphocytes # 1.1 K/mm3 (0.7-4.5); Lymphocytes % 17.5 % (10-50); Mean Corpuscular HGB Conc 33.3 g/dL (31.8-35.4); Mean Corpuscular Volume 93.3 fl (80-94); Mean Platelet Volume 8.9 fl (7.4-10.4); Monocytes # 0.7 K/mm3 (0.1-1.0); Monocytes % 11.6 % (1.7-9.3); Neutrophils # 4.4 K/mm3 (1.8-7.8); Neutrophils % 69.6 % (37.0-80.0); Platelet Count 123 K/mm3 (142-424); Red Blood Count 5.06 M/mm3 (4.60-6.20); Red Cell Distribution Width 15.1 % (11.5-17.5); White Blood Count 6.3 K/mm3 (4.8-10.8)
[2024-07-23 14:22] LABS: Alanine Aminotransferase 64 U/L (12-78); Albumin Level 3.5 g/dl (3.5-5.0); Albumin/Globulin Ratio 1.8 (1.1-1.8); Alkaline Phosphatase 76 U/L (38-126); Anion Gap 11.4 mEq/L (5-15); Aspartate Amino Transferase 49 U/L (17-59); Bilirubin,Total 1.5 mg/dl (0.2-1.3); Blood Urea Nitrogen 28 mg/dl (9-20); Calcium 9.3 mg/dl (8.4-10.2); Carbon Dioxide 23 mmol/L (22.0-30.0); Chloride 109 mmol/L (98-107); Creatinine Clearance Estimated 57 mL/min (50-200); Estimated Glomerular Filt Rate 59 ml/min (>60); GFR (African American) 71 ML/MIN (>60); Globulin 1.9 g/dL (1.3-3.2); Glucose 85 mg/dl (74-100); Potassium 4.4 mmoL/L (3.5-5.1); Sodium 139 mmol/L (136-145); Total Protein,Serum 5.4 g/dl (6.3-8.2)
[2024-07-23 14:29] LABS: Coronavirus 19, PCR Not Detected (NotDetected); Influenza A, PCR Not Detected (NotDetected); Influenza B, PCR Not Detected (NotDetected)
[2024-07-23 14:34] LABS: INR 1.11 (0.9-1.1); Prothrombin Time 12.3 seconds (10.1-12.5); Troponin I 0.05 ng/ml (0.00-0.034)
[2024-07-23 14:35] LABS: Lipase 200 U/L (23-300); Magnesium 1.9 mg/dl (1.6-2.3)
--- NOTE | 2024-07-23 14:43 | CT_ITS ---
FINAL REPORT TECHNIQUE: Postcontrast axial images through the abdomen and pelvis were performed. This study was performed with techniques to keep radiation doses as low as reasonably achievable, (ALARA). Individualized dose reduction techniques using automated exposure control or adjustment of mA and/or kV according to the patient's size were employed. CLINICAL HISTORY: ACUTE HYPOXEMIC RESP FAILURE FINDINGS: Abdomen: The liver is normal in size and attenuation. There are gallstones in the gallbladder with gallbladder wall thickening. There is a small amount of gas in the gallbladder, cholecystitis is not excluded. Moderate vascular calcification is identified. The spleen is unremarkable. The adrenals are normal. The pancreas is unremarkable. There is a right upper pole renal cyst. The aorta is normal in caliber. There is a small amount of ascites. There is no adenopathy. No findings for mechanical bowel obstruction are identified. Right inguinal hernia containing fat is identified. Pelvis: The appendix is normal. The prostate is diffusely enlarged. The urinary bladder is unremarkable. No free fluid, free air, abscess or adenopathy is identified. IMPRESSION: Gallstones with gallbladder wall thickening and a small amount of gas, cholecystitis is not excluded. Consider nuclear medicine hepatobiliary scan. Small amount of abdominal ascites. Reviewed, Interpreted and Dictated by David Valerio III, MD Transcribed by Gerri James Authenticated and [facility]
--- NOTE | 2024-07-23 14:43 | CT_ITS ---
FINAL REPORT CLINICAL HISTORY: ACUTE HYPOXEMIC RESP FAILURE FINDINGS: Thin section axial CT images of the chest were obtained with contrast. 3D reformatted images were also obtained. This study was performed with techniques to keep radiation doses as low as reasonably achievable (ALARA). Individualized dose reduction techniques using automated exposure control or adjustment of mA and/or kV according to the patient's size were employed. The patient is status post median sternotomy. There is cardiomegaly. There is no evidence of pulmonary embolism. The thoracic aorta is unopacified but there is no evidence of aneurysm, dissection cannot be evaluated. There is no evidence of mediastinal or hilar mass or adenopathy. There is no evidence of pulmonary mass or nodule. There are moderate bilateral effusions, right greater than left. The right effusion measures 6.2 cm in depth. The left effusion measures 3.2 cm in depth. There is bibasilar atelectasis. Note is made of mild anasarca. IMPRESSION: No evidence of pulmonary embolism. Bilateral pleural effusions, right greater than left. Mild anasarca. Reviewed, Interpreted and Dictated by David Valerio III, MD Transcribed by Gerri James Authenticated and [facility]
[2024-07-23 14:47] LABS: NT Pro Brain Natriuretic Pep. 4520 pg/mL (0-450)
[2024-07-23] MEDS: MAGNESIUM OXIDE 400MG TABLET 800 MG PO (14:51)
[2024-07-23] MEDS: MAGNESIUM SULFATE IN WATER 2 GM/50 ML PIGGYBACK IV (14:51)
[2024-07-23 14:52] LABS: D-Dimer 1.63 ug/mL (0.0-0.5)
[2024-07-23 14:54] LABS: Procalcitonin 0.067 ng/mL (0.0-2.0)
[2024-07-23 14:56] LABS: Free Thyroxine Index 3.6 ug/dL (5.93-13.13); T4 (Thyroxine) 7.8 ug/dl (5.53-11.0); Triiodothryronine (T3) Uptake 46 % (23.5-40.5)
[2024-07-23 15:10] LABS: Thyroid Stimulating Hormone 2.35 uIU/mL (0.465-4.68)
[2024-07-23 15:15] LABS: HIV (1&2) Antibody Rapid NONREACTIVE (NONREACTIVE)
[2024-07-23] MEDS: FUROSEMIDE 40MG/4ML VIAL 80 MG IV (15:18)
--- NOTE | 2024-07-23 15:19 | PC.NURSE ---
patient gone to CT at this time.
--- NOTE | 2024-07-23 15:34 | PC.NURSE ---
Patient is back from CT.
[2024-07-23] MEDS: SODIUM CHLORIDE 0.9% 10ML SYR (RAD ONLY) 10 ML IV (15:38)
[2024-07-23] MEDS: 0.9 % SODIUM CHLORIDE 50 ML VIAL IV (15:38)
[2024-07-23] MEDS: IOPAMIDOL-370 (76%);100ML BOTTLE 70 ML IV (15:38)
[2024-07-23 15:53] LABS: Microscopic, Urine URINE MICROSCOPIC (MICROSCOPIC)
[2024-07-23 16:02] LABS: Appearance,Urine CLEAR (Clear); Bilirubin,Urine Negative (Negative); Blood, Urine 2+ (Negative); Color,Urine YELLOW (Yellow); Glucose,Urine (UA) Negative (Negative); Ketones,Urine TRACE (Negative); Leukocyte Esterase,Urine Negative (Negative); Nitrate,Urine Negative (Negative); PH,Urine 5.5 (5.0-8.5); Protein,Urine 2+ (Negative); Specific Gravity, Urine >= 1.030 (1.005-1.030); Urobilinogen,Urine 0.2 EU/dl (0.2)
[2024-07-23 16:14] LABS: Bacteria,Urine 1+ /lpf; Mucus,Urine 1+ /lpf; RBC,Urine TNTC #/hpf (0-3)
--- NOTE | 2024-07-23 17:04 | PC.NURSE ---
spoke with sales warehouse driver regarding bed request
--- NOTE | 2024-07-23 17:24 | PC.NURSE ---
called report to Jazz rn on second floor and answered all questions
--- NOTE | 2024-07-23 17:51 | PC.NURSE ---
arrived by w/c from ED
[2024-07-23] MEDS: ENOXAPARIN 100MG/ML SYRINGE 80 MG SUBCUT (18:06)
[2024-07-23 18:11] LABS: Reflex Lactic Add Lactic Reflex
[2024-07-23 18:45] LABS: Lactic Acid Follow Up (RFLX 1) 1.2 mmol/L (0.7-2.1)
[2024-07-23 19:00] LABS: Troponin I 0.05 ng/ml (0.00-0.034)
--- NOTE | 2024-07-23 19:24 | P.HP_ITS ---
History of Present Illness *Admission Date: 07/23/24 *Reason for visit:: Shortness of breath *History of present illness: Perico Huntley is a 79-year-old male with a medical history significant for CAD s/p stents, CABG, hypertension, dementia who presents with worsening shortness of breath over the past week. Patient at baseline has some dementia and most history was obtained through at bedside. They state patient has not been feeling well for about a month, but developed shortness of breath that has worsened over the past week. He has had some cough but nothing really productive. Denies fever/chills, abdominal pain. No recent sick contacts. Initial heart rate 102, was found to be in A-fib workup in the ED significant for troponin 0.05, BNP 4520, d-dimer 1.62. CXR and CTA chest reveals pulmonary edema with bilateral pleural effusions. Case discussed with ED provider and decision was made to admit patient to acute hypoxic respiratory failure 2/2 new onset heart failure and afib. [facility] Disclaimer: The information contained in this section may have been updated after the patient was seen, as this information can be updated by other users. Medical History (Updated 07/23/24 @ 16:34 by DULCE MARIA Ruano) Gout High cholesterol Hypertension Surgical History (Updated 11/17/23 @ 11:01 by ELLIOT Amor) History of open heart surgery Hx of heart artery stent Family History Other Coronary artery disease Hypertension Social History Smoking Status: Never smoker alcohol intake: current alcohol intake frequency: a few times a week substance use type: denies use current occupational status: retired Travel in the last 8 weeks: None household members: spouse housing: house marital status: Other Medical History Have you received the Flu Vaccine for this season: No Have you received the Pneumonia Vaccine: No Meds Home Medications and Allergies Home Medications ?Medication ?Instructions ?Recorded ?Confirmed ?Type thiamine HCl (vitamin B1) 100 mg 100 mg PO DAILY #90 tabs 08/08/22 07/23/24 Rx tablet cholecalciferol (vitamin D3) 25 25 mcg PO DAILY 11/28/22 07/23/24 History mcg (1,000 unit) capsule turmeric 100 mg-arely 150 1 cap PO DAILY 11/28/22 07/23/24 History mg-olive 50 mg-oreg 150 mg-capryl capsule ascorbic acid (vitamin C) 1,000 mg 1 g PO DAILY #90 caps 10/03/23 07/23/24 Rx capsule aspirin 81 mg tablet,delayed 81 mg PO QDAY #90 tabs 10/03/23 07/23/24 Rx release (Adult Low Dose Aspirin) carvedilol 6.25 mg tablet (Coreg) 6.25 mg PO BID #180 tabs 03/29/24 07/23/24 Rx allopurinol 300 mg tablet 300 mg PO DAILY 07/23/24 07/23/24 History atorvastatin 20 mg tablet 20 mg PO DAILY 07/23/24 07/23/24 History lisinopril 10 mg tablet 10 mg PO DAILY 07/23/24 07/23/24 History tamsulosin 0.4 mg capsule 0.4 mg PO HS 07/23/24 07/23/24 History New Prescriptions to Start Prescriptions: Allergies Allergy/AdvReac Type Severity Reaction Status Date / Time No Known Allergies Allergy Verified 11/17/23 10:57 Exam Data for Last 24 hours Vital signs and Labs for Last 24 Hours: Temp Pulse Resp BP Pulse Ox O2 Del Method O2 Flow Rate 98.2 F 110 H 24 137/97 H 95 Nasal Cannula 2 07/23/24 17:25 07/23/24 18:03 07/23/24 17:25 07/23/24 17:25 07/23/24 16:45 07/23/24 18:44 07/23/24 18:44 Laboratory Results - last 24 hr 07/23/24 13:45: WBC 6.3, RBC 5.06, Hgb 15.7, Hct 47.2, MCV 93.3, MCH 31.0, MCHC 33.3, RDW 15.1, Plt Count 123 L, MPV 8.9, Neut % (Auto) 69.6, Lymph % (Auto) 17.5, [place] % (Auto) 11.6 H, Eos % (Auto) 0.9, Baso % (Auto) 0.5, Neut # (Auto) 4.4, Lymph # (Auto) 1.1, [place] # (Auto) 0.7, Eos # (Auto) 0.1, Baso # (Auto) 0.0, PT 12.3, INR 1.11 H, D-Dimer 1.63 H, Sodium 139, Potassium 4.4, Chloride 109 H, Carbon Dioxide 23, Anion Gap 11.4, BUN 28 H, Creatinine 1.20, Estimated Creat Clear 57, Estimated GFR 59, Est GFR ( Amer) 71, Glucose 85, Calcium 9.3, Magnesium 1.9, Total Bilirubin 1.5 H, AST 49, ALT 64, Alkaline Phosphatase 76, Troponin I 0.05 H, NT-Pro-B Natriuret Pep 4520 H, Total Protein 5.4 L, Albumin 3.5, Globulin 1.9, Albumin/Globulin Ratio 1.8, Lipase 200, Procalcitonin 0.067, TSH 2.35, Free T4 Index 3.6 L, Thyroxine (T4) 7.8, T3 Uptake 46 H, HIV 1&2 Antibody Rapid Nonreactive 07/23/24 14:04: VBG pH 7.41, VBG pCO2 31.6 L, VBG pO2 74.8 H, VBG HCO3 19.6 L, VBG Total CO2 20.6 L, VBG O2 Saturation 95.4 H, VBG Base Excess -5.1 L, VBG Lac tic Acid 2.5 H 07/23/24 14:25: SARS-CoV-2 (PCR) Not detected, Influenza A Untype (PCR) Not detected, Influenza Type B (PCR) Not detected 07/23/24 15:49: Urine Color Yellow, Urine Appearance Clear, Urine pH 5.5, Ur Specific [place] >= 1.030, Urine Protein 2+ A, Urine Glucose (UA) Negative, Urine Ketones Trace, Urine Blood 2+ A, Urine Nitrate Negative, Urine Bilirubin Negative, Urine Urobilinogen 0.2, Ur Leukocyte Esterase Negative, Urine RBC Tntc, Urine WBC 3-5, Ur Squamous Epith Cells 5-10, Ur Transition Epith Cell 10- 20, Urine Bacteria 1+, Urine Mucus 1+ 07/23/24 18:28: Lactate 1.2, Troponin I 0.05 H I & O for Last 24 hours: Intake & Output 07/20/24 07/21/24 07/22/24 07/23/24 23:59 23:59 23:59 23:59 Weight 79.379 kg Constitutional Constitutional: no acute distress *Routine HEENT Exam Head: Present normocephalic Eye: Present EOMI and PERRL ENT: Present mucous membranes moist *Routine Neck Exam Neck: Present supple; Absent lymphadenopathy *Routine Respiratory Exam Respiratory: Present CTA bilaterally *Routine Cardiovascular Exam Cardiovascular: Present RRR *Routine Abdominal Exam Abdominal: Present soft and normoactive bowel sounds; Absent tenderness *Routine Rectal Exam Rectal:: deferred *Routine Genitalia Exam Genitalia:: deferred *Routine Extremities Exam Extremities: Present edema; Absent cyanosis or clubbing Comments: Pitting edema up to knees 2+ *Routine Skin Exam Skin: Present warm; Absent rash *Routine Neurological Exam Neurological: Present alert Assessment and Plan *Assessment and plan (1) Atrial fibrillation: Status: Acute Qualifiers: Atrial fibrillation type: unspecified Qualified Code(s): I48.91 - Unspecified atrial fibrillation Category: Medical Code(s): I48.91 - Unspecified atrial fibrillation (2) Bilateral pleural effusion: Status: Acute Category: Medical Code(s): J90 - Pleural effusion, not elsewhere classified (3) Pulmonary edema: Status: Acute Qualifiers: Chronicity: acute Qualified Code(s): J81.0 - Acute pulmonary edema Category: Medical Code(s): J81.1 - Chronic pulmonary edema (4) Elevated troponin I level: Status: Acute Category: Medical Code(s): R79.89 - Other specified abnormal findings of blood chemistry (5) Acute hypoxemic respiratory failure: Status: Acute Category: Medical Code(s): J96.01 - Acute respiratory failure with hypoxia (6) Congestive heart failure: Status: Acute Qualifiers: Heart failure chronicity: unspecified Heart failure type: unspecified Qualified Code(s): I50.9 - Heart failure, unspecified Category: Medical Code(s): I50.9 - Heart failure, unspecified Plan Perico Huntley is a 79-year-old male with a medical history significant for CAD s/p stents, CABG, hypertension, dementia who presents with worsening shortness o f breath over the past week. Patient at baseline has some dementia and most history was obtained through at bedside. They state patient has not been feeling well for about a month, but developed shortness of breath that has worsened over the past week. He has had some cough but nothing really productive. Denies fever/chills, abdominal pain. No recent sick contacts. Initial heart rate 102, was found to be in A-fib workup in the ED significant for troponin 0.05, BNP 4520, d-dimer 1.62. CXR and CTA chest reveals pulmonary edema with bilateral pleural effusions. Case discussed with ED provider and decision was made to admit patient to acute hypoxic respiratory failure 2/2 new onset heart failure and afib. #Acute hypoxic respiratory failure #Acute heart failure exacerbation, new diagnosis #Bilateral pleural effusions - Pulmonary edema, effusions with BNP 4520. - H/o of CABG, stents. - Started IV Lasix 60mg BID. Lasix 80mg given in the ED. - Follow-up ECHO. - Follow-up urine output, renal function, electrolytes. - Cardiology consulted, pending recommendations. #Afib, new diagnosis #Elevated troponins - Currently rate controlled. - CHADSVASc score is 5. - Troponins plauteaus at 0.05, likely from demand. EKD did not show acute ischemic findings. - Therapeutic Lovenox for this time until edema reduces. #Hypertension - Resume home medications once reconciled. FULL CODE Therapeutic Lovenox
[2024-07-23 21:00] LABS: Troponin I 0.05 ng/ml (0.00-0.034)
[2024-07-24] VITALS (16 sets, daily range): BP systolic 110–143; BP diastolic 69–97; PULSE 80–110; RESP 16–19; TEMP 36.1–36.9; O2SAT 91–95; BMI 27.6
[2024-07-24] MEDS: ENOXAPARIN 100MG/ML SYRINGE 80 MG SUBCUT (05:15)
--- NOTE | 2024-07-24 07:18 | HMH.PHAINT1 ---
Pharmacy Intervention Comments: home meds verified via outpatient pharmacy
[2024-07-24 07:51] LABS: Basophils % 0.7 % (0.1-2.0); Eosinophils # 0.1 K/mm3 (0.0-0.4); Hematocrit 48.3 % (42.0-52.0); Hemoglobin 15.8 g/dL (14.1-18.0); Lymphocytes % 16.7 % (10-50); Mean Corpuscular HGB Conc 32.8 g/dL (31.8-35.4); Mean Corpuscular Hemoglobin 30.4 pg (27.0-31.2); Mean Corpuscular Volume 92.6 fl (80-94); Mean Platelet Volume 8.6 fl (7.4-10.4); Monocytes # 0.8 K/mm3 (0.1-1.0); Monocytes % 12.1 % (1.7-9.3); Neutrophils # 4.3 K/mm3 (1.8-7.8); Neutrophils % 69.5 % (37.0-80.0); Platelet Count 123 K/mm3 (142-424); Red Blood Count 5.22 M/mm3 (4.60-6.20); Red Cell Distribution Width 15.3 % (11.5-17.5); White Blood Count 6.2 K/mm3 (4.8-10.8)
[2024-07-24 08:01] LABS: Alanine Aminotransferase 58 U/L (12-78); Albumin Level 3.3 g/dl (3.5-5.0); Albumin/Globulin Ratio 1.7 (1.1-1.8); Alkaline Phosphatase 74 U/L (38-126); Anion Gap 10.8 mEq/L (5-15); Aspartate Amino Transferase 42 U/L (17-59); Bilirubin,Total 1.7 mg/dl (0.2-1.3); Blood Urea Nitrogen 22 mg/dl (9-20); Calcium 9.2 mg/dl (8.4-10.2); Carbon Dioxide 27 mmol/L (22.0-30.0); Chloride 105 mmol/L (98-107); Creatinine Clearance Estimated 69 mL/min (50-200); Estimated Glomerular Filt Rate 72 ml/min (>60); GFR (African American) 87 ML/MIN (>60); Glucose 80 mg/dl (74-100); Magnesium 1.9 mg/dl (1.6-2.3); Potassium 3.8 mmoL/L (3.5-5.1); Sodium 139 mmol/L (136-145); Total Protein,Serum 5.3 g/dl (6.3-8.2)
[2024-07-24 08:21] LABS: HCV Ab Non Reactive (Non Reactive)
[2024-07-24 08:57] LABS: Chol/HDL Ratio 2.8 (1-3.5); Cholesterol 105 mg/dl (140-200); HDL Cholesterol 37 mg/dl (40-60); Triglycerides 56 mg/dl (30-150); VLDL Cholesterol 11 mg/dL (0-40)
[2024-07-24] MEDS: CARVEDILOL 6.25MG TABLET 6.25 MG PO (09:06)
[2024-07-24] MEDS: LISINOPRIL 10MG TABLET 10 MG PO (09:06)
[2024-07-24 09:07] LABS: Direct LDL Cholesterol 60.94 mg/dL (100-129)
[2024-07-24] MEDS: ASPIRIN EC 81MG TABLET 81 MG PO (09:07)
[2024-07-24] MEDS: FUROSEMIDE 40MG/4ML VIAL 60 MG IV ×2 (09:07→16:59)
--- NOTE | 2024-07-24 10:19 | IR_ITS ---
APPROVED REPORT Patient Location: Inpatient PROCEDURES Left heart catheterization Left ventriculogram Selective coronary angiogram Left internal mammary angiography Selective engagement of saphenous vein graft to circumflex artery INDICATION Elevated troponin, History of coronary bypass surgery, Congestive heart failure Informed consent was obtained prior to the procedure. COMPLICATIONS NONE Estimated Blood Loss: LESS THAN 10 ML TECHNIQUE One percent lidocaine used to anesthetize the right groin. The right femoral artery was accessed via the Seldinger technique and a 5 [place] sheath was placed in the right femoral artery. A JL 4, JR4 catheter were used to perform left heart catheterization, left ventriculogram selective coronary angiography as well as selective engagement of the 1 vein graft and the left internal mammary artery. At the end of the procedure the patient was transferred to the postop holding area in stable condition for sheath removal. ANGIOGRAPHIC RESULTS The left main artery Is severe distal 70% stenosis The left anterior descending artery Proximally occluded The circumflex artery Proximally occluded The right coronary artery Large dominant with either calcification or stents in the proximal segment which are widely patent with mild 20 to 30% either in-stent stenosis or stenosis within calcification. The posterior descending artery is moderate in size and 2 mm in diameter and has a mid vessel 60 to 70% concentric stenosis The LAI ventriculogram reveals Severely dilated and severely hypokinetic estimated ejection fraction 15 to 20% The left ventricular end-diastolic pressure 20 to 25 mmHg JE[place] to LAD patent Saphenous to circumflex artery ostially occluded IMPRESSION Coronary artery disease as described above Severely dilated ventricle with severe global hypokinesis based on an LAI ventriculogram Elevated LVEDP PLAN 1. Medical management for systolic congestive heart failure 2. Correlation with echo 3. Consider LifeVest if ejection fraction is appropriate 4. Standard therapy for ischemic heart disease and risk factor modification with LDL less than 55 to be achieved with high intensity statin Electronically signed by : Marcelo Moser MD 07/24/2024 12:10:51
--- NOTE | 2024-07-24 11:16 | EXP.CARD.CON ---
History of Present Illness History of Present Illness Consult date: 07/24/24 Requesting physician: Carl Anthony Consult reason: shortness of breath Chief complaint: SOB History of present illness: This is a 79-year-old white gentleman who presented to the emergency department with shortness of breath. He has a past medical history of coronary artery disease status post coronary artery bypass grafting, hypertension, hyperlipidemia and dementia. His reports that he had not been feeling well for approximately a month but developed shortness of breath over the last week. She states that this continued to worsen and he was very lethargic and she was having trouble keeping him awake. She stated that minimal exertion made him profoundly short of breath. The patient reports that he has been having some intermittent chest pain as well. This is a pressure sensation in the chest. He states that it was worse at the beginning of the day yesterday and then did continue to improve throughout the day once he was hospitalized. His reports that he had not reported having chest pain until now. He did have a nonproductive cough associated with his shortness of breath. He denies any lower extremity edema. He denies any fever, chills, nausea, vomiting, diarrhea, PND orthopnea. Upon arrival to the emergency department the patient was found to have an elevated troponin, elevated BNP and was in atrial fibrillation with rate control. [facility] Disclaimer: The information contained in this section may have been updated after the patient was seen, as this information can be updated by other users. Medical History (Updated 07/24/24 @ 11:25 by Prema Small APRN) Biventricular heart failure Tobacco use Alcohol use Dementia Elevated troponin I level Pulmonary edema Atrial fibrillation Bilateral pleural effusion Acute hypoxemic respiratory failure Hyperlipidemia History of sleep apnea CAD (coronary artery disease) Acute HFrEF (heart failure with reduced ejection fraction) Gout High cholesterol Hypertension Surgical History (Updated 11/17/23 @ 11:01 by ELLIOT Amor) History of open heart surgery Hx of heart artery stent Family History Other Coronary artery disease Hypertension Social History Smoking Status: Never smoker alcohol intake: current alcohol intake frequency: a few times a week substance use type: denies use current occupational status: retired Travel in the last 8 weeks: None household members: spouse housing: house marital status: Review of Systems Review of Systems Review of systems:: pertinent systems reviewed and negative unless documented below Constitutional Constitutional: Reports system reviewed and no additional complaints, except as documented, Reports fatigue, Reports lethargy and Reports weakness Eyes Eyes: Reports system reviewed and no additional complaints, except as documented ENT Ears, Nose, Mouth, and Throat: Reports system reviewed and no additional complaints, except as documented *Cardiovascular Cardiovascular: Reports system reviewed and no additional complaints, except as documented, Reports chest pain, Reports dyspnea and Reports dyspnea on exertion *Respiratory Respiratory: Reports system reviewed and no additional complaints, except as documented, Reports dyspnea and Reports dyspnea on exertion *Gastrointestinal Gastrointestinal: Reports system reviewed and no additional complaints, except as documented *Genitourinary Genitourinary: Reports system reviewed and no additional complaints, except as documented *Musculoskeletal Musculoskeletal: Reports system reviewed and no additional complaints, except as documented Integumentary/Breasts Skin/Breast: Reports system reviewed and no additional complaints, except as documented *Neurologic Neurologic: Reports system reviewed and no additional complaints, except as documented and Reports weakness Psychiatric Psychiatric: Reports system reviewed and no additional complaints, except as documented Endocrine Endocrine: Reports system reviewed and no additional complaints, except as documented and Reports fatigue Hematologic/Lymphatic Hematologic/Lymphatic: Reports system reviewed and no additional complaints, except as documented Allergic/Immunologic Allergic/Immunologic: Reports system reviewed and no additional complaints, except as documented Exam Data for Last 24 hours Vital signs and Labs for Last 24 Hours: Temp Pulse Resp BP Pulse Ox O2 Del Method O2 Flow Rate 97.8 F 106 H 19 125/75 91 L Nasal Cannula 2 07/24/24 08:00 07/24/24 08:00 07/24/24 08:00 07/24/24 08:00 07/24/24 08:00 07/24/24 08:00 07/24/24 08:00 Laboratory Results - last 24 hr 07/23/24 13:45: WBC 6.3, RBC 5.06, Hgb 15.7, Hct 47.2, MCV 93.3, MCH 31.0, MCHC 33.3, RDW 15.1, Plt Count 123 L, MPV 8.9, Neut % (Auto) 69.6, Lymph % (Auto) 17.5, [place] % (Auto) 11.6 H, Eos % (Auto) 0.9, Baso % (Auto) 0.5, Neut # (Auto) 4.4, Lymph # (Auto) 1.1, [place] # (Auto) 0.7, Eos # (Auto) 0.1, Baso # (Auto) 0.0, PT 12.3, INR 1.11 H, D-Dimer 1.63 H, Sodium 139, Potassium 4.4, Chloride 109 H, Carbon Dioxide 23, Anion Gap 11.4, BUN 28 H, Creatinine 1.20, Estimated Creat Clear 57, Estimated GFR 59, Est GFR ( Amer) 71, Glucose 85, Calcium 9.3, Magnesium 1.9, Total Bilirubin 1.5 H, AST 49, ALT 64, Alkaline Phosphatase 76, Troponin I 0.05 H, NT-Pro-B Natriuret Pep 4520 H, Total Protein 5.4 L, Albumin 3.5, Globulin 1.9, Albumin/Globulin Ratio 1.8, Lipase 200, Procalcitonin 0.067, TSH 2.35, Free T4 Index 3.6 L, Thyroxine (T4) 7.8, T3 Uptake 46 H, Hepatitis C Antibody Non reactive, HIV 1&2 Antibody Rapid Nonreactive 07/23/24 14:04: VBG pH 7.41, VBG pCO2 31.6 L, VBG pO2 74.8 H, VBG HCO3 19.6 L, VBG Total CO2 20.6 L, VBG O2 Saturation 95.4 H, VBG Base Excess -5.1 L, VBG Lactic Acid 2.5 H 07/23/24 14:25: SARS-CoV-2 (PCR) Not detected, Influenza A Untype (PCR) Not detected, Influenza Type B (PCR) Not detected 07/23/24 15:49: Urine Color Yellow, Urine Appearance Clear, Urine pH 5.5, Ur Specific [place] >= 1.030, Urine Protein 2+ A, Urine Glucose (UA) Negative, Urine Ketones Trace, Urine Blood 2+ A, Urine Nitrate Negative, Urine Bilirubin Negative, Urine Urobilinogen 0.2, Ur Leukocyte Esterase Negative, Urine RBC Tntc, Urine WBC 3-5, Ur Squamous Epith Cells 5-10, Ur Transition Epith Cell 10-20, Urine Bacteria 1+, Urine Mucus 1+ 07/23/24 18:28: Lactate 1.2, Troponin I 0.05 H 07/23/24 20:27: Troponin I 0.05 H 07/24/24 07:27: WBC 6.2, RBC 5.22, Hgb 15.8, Hct 48.3, MCV 92.6, MCH 30.4, MCHC 32.8, RDW 15.3, Plt Count 123 L, MPV 8.6, Neut % (Auto) 69.5, Lymph % (Auto) 16.7, [place] % (Auto) 12.1 H, Eos % (Auto) 1.0, Baso % (Auto) 0.7, Neut # (Auto) 4.3, Lymph # (Auto) 1.0, [place] # (Auto) 0.8, Eos # (Auto) 0.1, Baso # (Auto) 0.0, Sodium 139, Potassium 3.8, Chloride 105, Carbon Dioxide 27, Anion Gap 10.8, BUN 22 H, Creatinine 1.00, Estimated Creat Clear 69, Estimated GFR 72, Est GFR ( Amer) 87 D, Glucose 80, Calcium 9.2, Magnesium 1.9, Total Bilirubin 1.7 H, AST 42, ALT 58, Alkaline Phosphatase 74, Total Protein 5.3 L, Albumin 3.3 L, Globulin 2.0, Albumin/Globulin Ratio 1.7, Triglycerides 56, Cholesterol 105 L, LDL Cholesterol Direct 60.94 L, VLDL Cholesterol 11, HDL Cholesterol 37 L, Cholesterol/HDL Ratio 2.8 I & O for Last 24 hours: Intake & Output 07/21/24 07/22/24 07/23/24 07/24/24 23:59 23:59 23:59 23:59 Intake Total 930 / 930 Output Total 4150 / 4150 Balance -3220 / -3220 Weight 176 lb 14.4 oz 175 lb 14.862 oz Constitutional Constitutional: no acute distress and average body habitus *Routine HEENT Exam Head: Present normocephalic and atraumatic ENT: Present mucous membranes moist *Routine Neck Exam Neck: Present supple, full ROM and normal carotid upstroke; Absent JVD, carotid bruit or lymphadenopathy *Routine Respiratory Exam Respiratory: Present CTA bilaterally, normal respiratory effort, able to speak in complete sentences and symmetric chest movement *Routine Cardiovascular Exam Cardiovascular: Present Normal S1, Normal S2 and irregularly irregular; Absent murmur or gallop *Routine Abdominal Exam Abdominal: Present soft and normoactive bowel sounds; Absent tenderness, distended or organomegaly *Routine Extremities Exam Extremities: Present full ROM, pulses intact and normal capillary refill; Absent cyanosis, clubbing or edema *Routine Skin Exam Skin: Present intact and warm; Absent erythema *Routine Neurological Exam Neurological: Present alert, oriented X3 and CN II-XII intact; Absent sensory deficit or motor deficit Routine Psychiatric Exam Psychiatric: Present normal affect Meds Home Medications and Allergies Home Medications ?Medication ?Instructions ?Recorded ?Confirmed ?Type thiamine HCl (vitamin B1) 100 mg 100 mg PO DAILY #90 tabs 08/08/22 07/24/24 Rx tablet cholecalciferol (vitamin D3) 25 25 mcg PO DAILY 11/28/22 07/24/24 History mcg (1,000 unit) capsule turmeric 100 mg-arely 150 1 cap PO DAILY 11/28/22 07/24/24 History mg-olive 50 mg-oreg 150 mg-capryl capsule carvedilol 6.25 mg tablet (Coreg) 6.25 mg PO BID #180 tabs 03/29/24 07/24/24 Rx allopurinol 300 mg tablet 300 mg PO DAILY 07/23/24 07/24/24 History atorvastatin 20 mg tablet 20 mg PO DAILY 07/23/24 07/24/24 History lisinopril 10 mg tablet 10 mg PO BID 07/23/24 07/24/24 History tamsulosin 0.4 mg capsule 0.4 mg PO HS 07/23/24 07/24/24 History ascorbic acid (vitamin C) 1,000 mg 1,000 mg PO DAILY 07/24/24 07/24/24 History capsule aspirin 81 mg tablet,delayed 81 mg PO DAILY 07/24/24 07/24/24 History release New Prescriptions to Start Prescriptions: Allergies Allergy/AdvReac Type Severity Reaction Status Date / Time No Known Allergies Allergy Verified 11/17/23 10:57 Assessment and Plan *Assessment and plan (1) Elevated troponin I level: Status: Acute Category: Medical Code(s): R79.89 - Other specified abnormal findings of blood chemistry (2) Acute HFrEF (heart failure with reduced ejection fraction): Status: Acute Category: Medical Code(s): I50.21 - Acute systolic (congestive) heart failure (3) CAD (coronary artery disease): Status: Acute Qualifiers: Associated angina: with other forms of angina Coronary Disease-Associated Artery/Lesion type: [place] artery [place] vs. transplanted heart: [place] heart Qualified Code(s): I25.118 - Atherosclerotic heart disease of [place] coronary artery with other forms of angina pectoris Category: Medical Code(s): I25.10 - Atherosclerotic heart disease of [place] coronary artery without angina pectoris (4) Atrial fibrillation: Status: Acute Qualifiers: Atrial fibrillation type: unspecified Qualified Code(s): I48.91 - Unspecified atrial fibrillation Category: Medical Code(s): I48.91 - Unspecified atrial fibrillation (5) Bilateral pleural effusion: Status: Acute Category: Medical Code(s): J90 - Pleural effusion, not elsewhere classified (6) Pulmonary edema: Status: Acute Qualifiers: Chronicity: acute Qualified Code(s): J81.0 - Acute pulmonary edema Category: Medical Code(s): J81.1 - Chronic pulmonary edema (7) Acute hypoxemic respiratory failure: Status: Acute Category: Medical Code(s): J96.01 - Acute respiratory failure with hypoxia (8) History of open heart surgery: Status: Acute Category: Surgical Code(s): Z98.890 - Other specified postprocedural states (9) Hx of heart artery stent: Status: Acute Category: Surgical Code(s): Z95.5 - Presence of coronary angioplasty implant and graft (10) Hyperlipidemia: Status: Chronic Qualifiers: Hyperlipidemia type: unspecified Qualified Code(s): E78.5 - Hyperlipidemia, unspecified Category: Medical Code(s): E78.5 - Hyperlipidemia, unspecified (11) Hypertension: Status: Chronic Qualifiers: Hypertension type: essential hypertension Qualified Code(s): I10 - Essential (primary) hypertension Category: Medical Code(s): I10 - Essential (primary) hypertension (12) Dementia: Status: Acute Qualifiers: Dementia behavioral or psychological symptom: unspecified whether behavioral, psychotic, or mood disturbance or anxiety Dementia severity: unspecified severity Dementia type: unspecified type Qualified Code(s): F03.90 - Unspecified dementia, unspecified severity, without behavioral disturbance, psychotic disturbance, mood disturbance, and anxiety Category: Medical Code(s): F03.90 - Unspecified dementia, unspecified severity, without behavioral disturbance, psychotic disturbance, mood disturbance, and anxiety (13) Biventricular heart failure: Status: Acute Category: Medical Code(s): I50.82 - Biventricular heart failure Plan Plan: 1. The patient was admitted to the hospital with an elevated troponin and elevated BNP. Echocardiogram shows an ejection fraction of 40% with moderate MR and moderate TR. The patient has new onset cardio myopathy and biventricular heart failure. He has an elevated BNP and a chest x-ray and CT chest which shows pulmonary edema with bilateral pleural effusions. He has been getting IV Lasix. He is a -2 L fluid balance overnight. Will continue diuresis with Lasix 60 mg IV twice daily. 2. Will repeat a BMP in the morning. 3. The patient does have a known history of coronary artery disease status post coronary artery bypass grafting. His states that his bypass was greater than 20 years ago. She reports that he had coronary stents placed in [address] Moser but has not seen cardiology since that time because he was not having any issues. He does have new onset cardiomyopathy with an elevated troponin consistent with a non-STEMI. Will plan to proceed with left cardiac catheterization today to evaluate his coronary artery disease. 4. The patient and have been educated the risk and benefits of proceeding with left cardiac catheterization. The patient and verbalize understanding and are agreeable in proceeding with the procedure. 5. The patient will be n.p.o. in preparation for left cardiac catheterization. 6. Coronary artery disease is present. Will proceed with left cardiac catheterization as mentioned above. 7. His blood pressure is well-controlled. 8. His LDL goal is less than 55. His LDL is 60. He is on a statin. 9. Stop lisinopril and start Entresto 24/26 mg p.o. twice daily for HFrEF. 10. Start spironolactone 25 mg p.o. daily for HFrEF. 11. Once the patient is euvolemic we will start Jardiance 10 mg daily for HFrEF. 12. The patient was in atrial fibrillation upon arrival to the hospital. Will increase his Coreg to 12.5 mg p.o. twice daily for better heart rate control. 13. Post cath. Lovenox and start Eliquis 5 mg p.o. twice daily for anticoagulation. 14. Further recommendations will be made pending the patient's response to treatment and the results of his left cardiac catheterization today. Thank you for the opportunity to help participate in the care of this patient. All recommendations and orders are per Dr. Dover.
[2024-07-24] MEDS: LIDOCAINE 1% 10ML MDV 20 ML IJ (11:36)
[2024-07-24] MEDS: MIDAZOLAM HCL 1MG/ML 5ML VIAL 1 MG IV (11:36)
[2024-07-24] MEDS: FENTANYL 100MCG/2ML VIAL 50 MCG IV (11:36)
[2024-07-24] MEDS: diphenhydrAMINE 50MG/ML VIAL 50 MG IV (11:36)
[2024-07-24] MEDS: HEPARIN 1,000 UNITS/ML 10ML VIAL (CATH LAB) 10000 UNIT IV (11:36)
[2024-07-24] MEDS: 0.9 % SODIUM CHLORIDE 500 ML 25 ML IV (11:37)
[2024-07-24] MEDS: HEPARIN 1,000 UNITS/500ML NS (CATH LAB) 3000 UNIT IV (11:37)
--- NOTE | 2024-07-24 12:42 | PC.NURSE ---
pt to crime lab analyst at 1130. back to room at 1230. vss, with rt groin access dsg cdi. pt currently laying flat and asleep.
[2024-07-24] MEDS: IOPAMIDOL-370 (76%);100ML BOTTLE 50 ML IV (13:22)
--- NOTE | 2024-07-24 16:52 | EXP.PN ---
Subjective *Date: 07/24/24 *Time: 16:52 Interval history: Patient is doing well this morning, better than yesterday. Denies chest pain, shortness of breath. Exam Data for Last 24 hours Vital signs and Labs for Last 24 Hours: Temp Pulse Resp BP Pulse Ox O2 Del Method O2 Flow Rate 97.8 F 106 H 19 125/75 91 L Nasal Cannula 2 07/24/24 08:00 07/24/24 08:00 07/24/24 08:00 07/24/24 08:00 07/24/24 08:00 07/24/24 15:00 07/24/24 15:00 Laboratory Results - last 24 hr 07/23/24 13:45: Hepatitis C Antibody Non reactive 07/23/24 18:28: Lactate 1.2, Troponin I 0.05 H 07/23/24 20:27: Troponin I 0.05 H 07/24/24 07:27: WBC 6.2, RBC 5.22, Hgb 15.8, Hct 48.3, MCV 92.6, MCH 30.4, MCHC 32.8, RDW 15.3, Plt Count 123 L, MPV 8.6, Neut % (Auto) 69.5, Lymph % (Auto) 16.7, [place] % (Auto) 12.1 H, Eos % (Auto) 1.0, Baso % (Auto) 0.7, Neut # (Auto) 4.3, Lymph # (Auto) 1.0, [place] # (Auto) 0.8, Eos # (Auto) 0.1, Baso # (Auto) 0.0, Sodium 139, Potassium 3.8, Chloride 105, Carbon Dioxide 27, Anion Gap 10.8, BUN 22 H, Creatinine 1.00, Estimated Creat Clear 69, Estimated GFR 72, Est GFR ( Amer) 87 D, Glucose 80, Calcium 9.2, Magnesium 1.9, Total Bilirubin 1.7 H, AST 42, ALT 58, Alkaline Phosphatase 74, Total Protein 5.3 L, Albumin 3.3 L, Globulin 2.0, Albumin/Globulin Ratio 1.7, Triglycerides 56, Cholesterol 105 L, LDL Cholesterol Direct 60.94 L, VLDL Cholesterol 11, HDL Cholesterol 37 L, Cholesterol/HDL Ratio 2.8 I & O for Last 24 hours: Intake & Output 1107/22/24 07/23/24 07/24/24 23:59 23:59 23:59 23:59 Intake Total 930 / 930 Output Total 4150 / 4150 Balance -3220 / -3220 Weight 80.24 kg 79.8 kg Constitutional Constitutional: no acute distress *Routine HEENT Exam Head: Present normocephalic Eye: Present EOMI and PERRL ENT: Present mucous membranes moist *Routine Neck Exam Neck: Present supple; Absent lymphadenopathy *Routine Respiratory Exam Respiratory: Present CTA bilaterally *Routine Cardiovascular Exam Cardiovascular: Present RRR *Routine Abdominal Exam Abdominal: Present soft and normoactive bowel sounds; Absent tenderness *Routine Extremities Exam Extremities: Absent cyanosis, clubbing or edema *Routine Skin Exam Skin: Present warm; Absent rash *Routine Neurological Exam Neurological: Present alert and oriented X3 Assessment and Plan *Assessment and plan (1) Atrial fibrillation: Status: Acute Qualifiers: Atrial fibrillation type: unspecified Qualified Code(s): I48.91 - Unspecified atrial fibrillation Category: Medical Code(s): I48.91 - Unspecified atrial fibrillation (2) Bilateral pleural effusion: Status: Acute Category: Medical Code(s): J90 - Pleural effusion, not elsewhere classified (3) Pulmonary edema: Status: Acute Qualifiers: Chronicity: acute Qualified Code(s): J81.0 - Acute pulmonary edema Category: Medical Code(s): J81.1 - Chronic pulmonary edema (4) Elevated troponin I level: Status: Acute Category: Medical Code(s): R79.89 - Other specified abnormal findings of blood chemistry (5) Acute hypoxemic respiratory failure: Status: Acute Category: Medical Code(s): J96.01 - Acute respiratory failure with hypoxia (6) Congestive heart failure: Status: Acute Qualifiers: Heart failure chronicity: unspecified Heart failure type: unspecified Qualified Code(s): I50.9 - Heart failure, unspecified Category: Medical Code(s): I50.9 - Heart failure, unspecified Plan Perico Huntley is a 79-year-old male with a medical history significant for CAD s/p stents, CABG, hypertension, dementia who presents with worsening shortness of breath over the past week. Patient at baseline has some dementia and most history was obtained through at bedside. They state patient has not been feeling well for about a month, but developed shortness of breath that has worsened over the past week. He has had some cough but nothing really productive. Denies fever/chills, abdominal pain. No recent sick contacts. Initial heart rate 102, was found to be in A-fib workup in the ED significant for troponin 0.05, BNP 4520, d-dimer 1.62. CXR and CTA chest reveals pulmonary edema with bilateral pleural effusions. Case discussed with ED provider and decision was made to admit patient to acute hypoxic respiratory failure 2/2 new onset heart failure and afib. #Acute hypoxic respiratory failure #Acute HFrEF exacerbation, new diagnosis #Bilateral pleural effusions #Hypertension #CAD - Pulmonary edema, effusions with BNP 4520. - H/o of CABG, stents. - Continue IV Lasix 60mg BID. ? Patient is having great urinary output, had about 4 L output over the last 24 hours. Feels better today. - ECHO reveals LVEF 40%, moderate to severe RV dilatation and moderate reduction in RV function. Severe biatrial dilation, elevated RVSP 45 to 50 mmHg. ? Cardiology consulted, recommended [facility] today 07/24/2024 with no stentable CAD. Started Entresto (stop lisinopril), spironolactone 25 mg. Plan to start Jardiance once more euvolemic. ? Will continue diuresis at this time and monitor response with Entresto and spironolactone, reevaluate tomorrow for possible discharge. ? Continues to require 2 L nasal cannula. Wean as tolerated. #Afib, new diagnosis - Currently rate controlled. - CHADSVASc score is 5. - Cardiology consulted, increased carvedilol dose to 12.5 mg twice daily. - Started Eliquis 5 mg twice daily. #Hematuria ? UA positive for 2+ blood. No signs of infection. ? Follow-up urine culture. ? Will benefit from outpatient evaluation with urology. FULL CODE DVT prophylaxis: Eliquis
--- NOTE | 2024-07-24 20:16 | PC.NURSE ---
Patient currently has an NPO diet in place due to the heart cath procedure performed during the previous shift. Dr Gallego was paged at this time to question what the patient's diet will be now; he stated that the patient can have a regular diet. Diet will be updated.
--- NOTE | 2024-07-24 21:37 | CA_ITS ---
APPROVED REPORT EXAM: Comprehensive 2D, Doppler, and color-flow Echocardiogram [facility] Supervisor: Arlin Stahl, JACKIE, RVS Ht: 5 ft 7 in Wt: 176lbs BSA: 1.91 BP: 150/90 mmHg Rhythm: Atrial Fibrillation Indications: Afib, CHF, Pleural Effusion, CAD- CABG/stents, HTN, HLD 2D Dimensions IVSd 1.13 cm LVEF (Visual) 46.00 % PWd 1.07 cm LA Volume 147.50 mL LVDd 5.75 cm LA Volume Index 75.30 mL/m2 (M/F) 16-34 LVDs 4.41 cm Left Atrium 5.09 cm M-Mode Dimensions RVDd 3.34 cm (0.9-2.6) LA Diam 5.38 cm (1.9-4.0) LVDd 5.70 cm (3.5-5.7) LVDs 4.32 cm (3.5-5.7) IVSd 1.21 cm (0.6-1.1) PWd 1.17 cm (0.6-1.1) EF (Teich) 44.20% EPSs 0.99 cm FS 22.20% EDV (Teich) 150.50 mL TAPSE 1.13 (<1.7) ESV (Teich) 84.00 mL LV Diastology E Decel Time 227 (160-240 msec) E/A Ratio 2.29 MED A' 3.10 cm/s LAT A' 7.00 cm/s Aortic Valve MICHAEL Index 1.19 cm2/m2 AoV Peak Jose. 71.0 (50-130 cm/s) AO Peak GR. 2.00 mmHg AO Mean GR. 1.00 (<5 mmHg) AO VTI 10.6 (18-25 cm) MICHAEL (VTI) 2.33 (2.5-4.5 cm2) Mitral Valve MV E Max Jose. 65.0 (40-130 cm/s) MV A Velocity 28.0 (40-130 cm/s) E/A Ratio 2.29 MV PHT 66.0 ms Pulmonary Valve PV Peak Velocity 43.0 (50-150 cm/s) DC End VMAX 93.0 cm/s Tricuspid Valve TR P. Velocity 337.00 cm/s RAP Estimate 10.00 mmHg RVSP 55.50 mmHg Left Ventricle The left ventricle is normal size. Left ventricular systolic function is mild to moderately decreased. There is increased LV wall thickness. There is septal flattening, consistent with right-sided volume/pressure overload. Diastolic function is indeterminate. LVEF is 40%. Right Ventricle The right ventricle is moderately to severely dilated. Right ventricle is moderately hypokinetic. Atria Left atrium is severely dilated. Right atrium is severely dilated. There is no Doppler evidence of interatrial shunt. Aortic Valve The aortic valve is mildly thickened. There is no aortic valvular stenosis. Trace aortic regurgitation. Mitral Valve The posterior mitral valve leaflet appears tethered and restricted in motion. No evidence of mitral valve stenosis. Moderate mitral regurgitation is present. The mechanism of MR is likely due to tethering of the posterior leaflet (Vicenta class IIIb). Tricuspid Valve The tricuspid valve leaflets are thin and pliable. Moderate tricuspid regurgitation. RVSP is 45-50 mmHg. Pulmonic Valve The pulmonary valve is normal in structure. Trace pulmonic regurgitation. Great Vessels The aortic root is normal in size. The ascending aorta is not well-visualized. IVC is normal in size and collapses >50% with inspiration. Pericardium There is no pericardial effusion. Pleural effusion is present. Other Information Study Quality: Fair Conclusion Mild to moderate reduction in LV systolic function (LVEF 40%). Moderate to severe RV dilation with moderate reduction in RV function. Severe biatrial dilation. Moderate MR. Mechanism of MR likely due to tethering of the posterior MV leaflet (Vicenta class IIIb). Moderate TR. Elevated RVSP 45-50 mmHg. Pleural effusion. Electronically signed by : Madai Dover MD 07/24/2024 09:21:02
[2024-07-24] MEDS: TAMSULOSIN 0.4MG CAPSULE 0.4 MG PO (21:53)
[2024-07-24] MEDS: ATORVASTATIN 20MG TABLET 20 MG PO (21:53)
[2024-07-24] MEDS: APIXABAN 5MG TABLET 5 MG PO (21:53)
[2024-07-24] MEDS: SACUBITRIL/VALSARTAN 24-26MG TABLET 1 EACH PO (21:53)
[2024-07-24] MEDS: CARVEDILOL 12.5MG TABLET 12.5 MG PO (21:53)
[2024-07-25] VITALS: PULSE 110
--- NOTE | 2024-07-25 00:06 | PC.NURSE ---
Addendum entered by Елена Lord RN 07/25/24 00:28: At this time, patient had the urge to void. About 150 mL of urine was voided. Original Note: Checked on patient at this time; he was found to be awake and lying in bed. Patient's Schulz catheter was removed by Jennifer Montano RN around 19:45 (07/24) this shift. Patient has not verbalized having the urge to void since removal of the catheter. He said that he will try to urinate in a little bit. He has consumed approximately 140 mL of ice water for this shift. Upon palpation, patient's abdomen was soft and non-tender to the touch. Patient did not verbalize any discomfort or fullness in the bladder region thus far. Urination status will be reevaluated again this shift.
[2024-07-25 03:47] VITALS: BP 101/71; PULSE 64; RESP 16; TEMP 36.4; O2SAT 90
[2024-07-25 04:00] VITALS: PULSE 70; BMI 25.4
--- NOTE | 2024-07-25 04:12 | PC.NURSE ---
Patient is alert and oriented, but was uncertain about the date/time; he was also noted to be slightly hard of hearing and fatigued (especially drowsy during the beginning of this shift). Patient was observed to have eyes closed, respirations even and unlabored on 2 L of oxygen via nasal cannula, and no apparent distress throughout the majority of the night. He was able to eat the rest of his dinner tray this shift after reheating. He has received his scheduled bedtime medications per NOV. Patient's blood pressures have been soft, and his oxygen saturations have remained within the low 90s this shift. Patient's lung sounds were diminished, an irregular heart rhythm with S1/S2 sounds was heard, and bowel sounds were active upon auscultation. Patient's heart rhythm has shown afibrillation on telemetry. His right femoral cath site dressing is in place; it is clean, dry, and intact without pain or abnormal temperature differences. Patient was able to void into a urinal once thus far post Schulz catheter removal (see prior note). He does not have any further complaints at this time. He is resting supine in bed. Bed alarm on. Call light within reach.
[2024-07-25 07:21] LABS: Basophils % 0.8 % (0.1-2.0); Eosinophils # 0.1 K/mm3 (0.0-0.4); Eosinophils % 1.3 % (0.1-12.0); Hematocrit 49.1 % (42.0-52.0); Hemoglobin 16.3 g/dL (14.1-18.0); Lymphocytes # 1.2 K/mm3 (0.7-4.5); Lymphocytes % 22.5 % (10-50); Mean Corpuscular HGB Conc 33.1 g/dL (31.8-35.4); Mean Corpuscular Hemoglobin 30.6 pg (27.0-31.2); Mean Corpuscular Volume 92.5 fl (80-94); Mean Platelet Volume 9.2 fl (7.4-10.4); Monocytes # 0.7 K/mm3 (0.1-1.0); Monocytes % 12.4 % (1.7-9.3); Neutrophils # 3.4 K/mm3 (1.8-7.8); Neutrophils % 62.9 % (37.0-80.0); Platelet Count 111 K/mm3 (142-424); Red Blood Count 5.31 M/mm3 (4.60-6.20); Red Cell Distribution Width 15.3 % (11.5-17.5); White Blood Count 5.4 K/mm3 (4.8-10.8)
[2024-07-25 07:27] LABS: Alanine Aminotransferase 47 U/L (12-78); Albumin Level 3.2 g/dl (3.5-5.0); Albumin/Globulin Ratio 1.7 (1.1-1.8); Alkaline Phosphatase 85 U/L (38-126); Anion Gap 7.4 mEq/L (5-15); Aspartate Amino Transferase 32 U/L (17-59); Bilirubin,Total 1.5 mg/dl (0.2-1.3); Blood Urea Nitrogen 22 mg/dl (9-20); Calcium 8.9 mg/dl (8.4-10.2); Carbon Dioxide 31 mmol/L (22.0-30.0); Chloride 102 mmol/L (98-107); Creatinine Clearance Estimated 53 mL/min (50-200); Estimated Glomerular Filt Rate 59 ml/min (>60); GFR (African American) 71 ML/MIN (>60); Globulin 1.9 g/dL (1.3-3.2); Glucose 79 mg/dl (74-100); Magnesium 1.8 mg/dl (1.6-2.3); Potassium 3.4 mmoL/L (3.5-5.1); Sodium 137 mmol/L (136-145); Total Protein,Serum 5.1 g/dl (6.3-8.2)
[2024-07-25 08:00] VITALS: BP 87/47; PULSE 102; PULSE 110; RESP 16; TEMP 35.8; O2SAT 90; O2SAT 92
[2024-07-25] MEDS: APIXABAN 5MG TABLET 5 MG PO (08:33)
[2024-07-25] MEDS: ASPIRIN EC 81MG TABLET 81 MG PO (08:33)
--- NOTE | 2024-07-25 11:42 | P.PN_ITS ---
Subjective Subjective Date: 07/25/24 Time: 09:15 Principal diagnosis: HFrEF, Afib with RVR Interval history: This is a 79-year-old white gentleman who presented to the emergency department complaints of shortness of breath. The patient has been admitted to the hospital with HFrEF, atrial fibrillation with RVR and an elevated troponin. The patient underwent left cardiac catheterization yesterday and had patent coronary artery disease. He has been diuresed for his HFrEF with IV Lasix. He is a -6 L fluid balance overnight. He remains in atrial fibrillation this morning with a heart rate around 110 bpm. He denies any chest pain or pressure. He states that shortness of breath is improved and he is feeling better. He denies any lower extremity edema. He denies any fever, chills, nausea, vomiting or diarrhea. Exam Data for Last 24 hours Vital signs and Labs for Last 24 Hours: Temp Pulse Resp BP Pulse Ox O2 Del Method O2 Flow Rate 96.5 F L 102 H 16 87/47 L 92 L Room Air 2 07/25/24 08:00 07/25/24 08:00 07/25/24 08:00 07/25/24 08:00 07/25/24 08:00 07/25/24 09:00 07/25/24 08:00 Laboratory Results - last 24 hr 07/25/24 06:35: WBC 5.4, RBC 5.31, Hgb 16.3, Hct 49.1, MCV 92.5, MCH 30.6, MCHC 33.1, RDW 15.3, Plt Count 111 L, MPV 9.2, Neut % (Auto) 62.9, Lymph % (Auto) 22.5, [place] % (Auto) 12.4 H, Eos % (Auto) 1.3, Baso % (Auto) 0.8, Neut # (Auto) 3.4, Lymph # (Auto) 1.2, [place] # (Auto) 0.7, Eos # (Auto) 0.1, Baso # (Auto) 0.0, Sodium 137, Potassium 3.4 L, Chloride 102, Carbon Dioxide 31 H, Anion Gap 7.4, BUN 22 H, Creatinine 1.20, Estimated Creat Clear 53, Estimated GFR 59, Est GFR ( Amer) 71, Glucose 79, Calcium 8.9, Magnesium 1.8, Total Bilirubin 1.5 H , AST 32, ALT 47, Alkaline Phosphatase 85, Total Protein 5.1 L, Albumin 3.2 L, Globulin 1.9, Albumin/Globulin Ratio 1.7 I & O for Last 24 hours: Intake & Output 07/22/24 07/23/24 07/24/24 07/25/24 23:59 23:59 23:59 23:59 Intake Total 930 / 1070 360 / 360 Output Total 7450 / 7450 150 / 150 Balance -6520 / -6380 210 / 210 Weight 176 lb 14.4 oz 175 lb 14.862 oz 162 lb 5 oz Narrative: Tele strip shows atrial fibrillation with a rate of 110 bpm. LHC shows: The left main artery Is severe distal 70% stenosis The left anterior descending artery Proximally occluded The circumflex artery Proximally occluded The right coronary artery Large dominant with either calcification or stents in the proximal segment which are widely patent with mild 20 to 30% either in-stent stenosis or stenosis within calcification. The posterior descending artery is moderate in size and 2 mm in diameter and has a mid vessel 60 to 70% concentric stenosis The LAI ventriculogram reveals Severely dilated and severely hypokinetic estimated ejection fraction 15 to 20% The left ventricular end-diastolic pressure 20 to 25 mmHg [place] to LAD patent Saphenous to circumflex artery ostially occluded IMPRESSION Coronary artery disease as described above Severely dilated ventricle with severe global hypokinesis based on an LAI ventriculogram Elevated LVEDP PLAN 1. Medical management for systolic congestive heart failure 2. Correlation with echo 3. Consider LifeVest if ejection fraction is appropriate 4. Standard therapy for ischemic heart disease and risk factor modification with LDL less than 55 to be achieved with high intensity Constitutional Constitutional: no acute distress and average body habitus *Routine HEENT Exam Head: Present normocephalic and atraumatic ENT: Present mucous membranes moist *Routine Neck Exam Neck: Present supple, full ROM and normal carotid upstroke; Absent JVD, carotid bruit or lymphadenopathy *Routine Respiratory Exam Respiratory: Present CTA bilaterally, normal respiratory effort, able to speak in complete sentences and symmetric chest movement *Routine Cardiovascular Exam Cardiovascular: Present Normal S1, Normal S2, tachycardia and irregularly irregular; Absent murmur or gallop *Routine Abdominal Exam Abdominal: Present soft and normoactive bowel sounds; Absent tenderness, distended or organomegaly *Routine Extremities Exam Extremities: Present full ROM, pulses intact and normal capillary refill; Absent cyanosis, clubbing or edema *Routine Skin Exam Skin: Present intact and warm; Absent erythema *Routine Neurological Exam Neurological: Present alert, oriented X3 and CN II-XII intact; Absent sensory deficit or motor deficit Routine Psychiatric Exam Psychiatric: Present normal affect Progress Note: A&P Assessment and plan (1) Acute HFrEF (heart failure with reduced ejection fraction): Status: Acute (2) Atrial fibrillation: Status: Acute (3) Bilateral pleural effusion: Status: Acute (4) Biventricular heart failure: Status: Acute (5) Pulmonary edema: Status: Acute (6) Elevated troponin I level: Status: Acute (7) Acute hypoxemic respiratory failure: Status: Acute (8) Dementia: Status: Acute (9) CAD (coronary artery disease): Status: Acute (10) Hyperlipidemia: Status: Chronic (11) Hypertension: Status: Chronic Assessment and Plan Assessment and Plan for All Diagnoses:: Plan: 1. The patient was admitted to the hospital with an elevated troponin and elevated BNP. Echocardiogram shows an ejection fraction of 40% with moderate MR and moderate TR. The patient has new onset cardiomyopathy and biventricular heart failure. He has an elevated BNP and a chest x-ray and CT chest which shows pulmonary edema with bilateral pleural effusions. The patient was diuresed with IV Lasix. He has a -6 L fluid balance overnight. Will stop IV Lasix and start Lasix 40 mg p.o. daily for HFrEF. 2. Continue spironolactone for diuresis and HFrEF. 3. His renal function remained stable with a creatinine of 1.2 this morning. 4. The patient underwent left cardiac catheterization yesterday and he has patent coronary artery disease and no intervention was required. 5. His blood pressure is well-controlled. 6. His LDL goal is less than 55. His LDL is 60. He is on a statin. 7. Continue Entresto for HFrEF. 8. The patient remains in atrial fibrillation this morning with a heart rate around 110 bpm. Stop carvedilol and start Toprol 50 mg p.o. daily for better heart rate control. 9. Continue Eliquis for anticoagulation secondary to the atrial fibrillation. 10. Start Jardiance 10 mg daily for HFrEF. 11. Further recommendations will be made pending the patient's response to treatment. Thank you for the opportunity to help participate in the care of this patient. All recommendations and orders are per Dr. Dover.
[2024-07-25 11:55] VITALS: BP 98/67; PULSE 109; RESP 19; TEMP 36.7; O2SAT 91
[2024-07-25 12:00] VITALS: PULSE 100
--- NOTE | 2024-07-25 12:18 | P.DS_ITS ---
General Admission date:: 07/23/24 HPI HPI HPI: Perico Huntley is a 79-year-old male with a medical history significant for CAD s/p stents, CABG, hypertension, dementia who presents with worsening shortness of breath over the past week. Patient at baseline has some dementia and most history was obtained through at bedside. They state patient has not been feeling well for about a month, but developed shortness of breath that has worsened over the past week. He has had some cough but nothing really productive. Denies fever/chills, abdominal pain. No recent sick contacts. Initial heart rate 102, was found to be in A-fib workup in the ED significant for troponin 0.05, BNP 4520, d-dimer 1.62. CXR and CTA chest reveals pulmonary edema with bilateral pleural effusions. Case discussed with ED provider and decision was made to admit patient to acute hypoxic respiratory failure 2/2 new onset heart failure and afib. Hospital Course Hospital Course Hospital Course: Perico Huntley is a 79-year-old male with a medical history significant for CAD s/p stents, CABG, hypertension, dementia who presents with worsening shortness of breath over the past week. Patient at baseline has some dementia and most history was obtained through at bedside. They state patient has not been feeling well for about a month, but developed shortness of breath that has worsened over the past week. He has had some cough but nothing really productive. Denies fever/chills, abdominal pain. No recent sick contacts. Initial heart rate 102, was found to be in A-fib workup in the ED significant for troponin 0.05, BNP 4520, d-dimer 1.62. CXR and CTA chest reveals pulmonary edema with bilateral pleural effusions. Case discussed with ED provider and decision was made to admit patient to acute hypoxic respiratory failure 2/2 new onset heart failure and afib. #Acute hypoxic respiratory failure #Acute HFrEF exacerbation, new diagnosis #Bilateral pleural effusions #Hypertension #CAD - Pulmonary edema, effusions with BNP 4520. - H/o of CABG, stents. - Clinically improved with IV Lasix diuresis. Weaned back to room air. - ECHO reveals LVEF 40%, moderate to severe RV dilatation and moderate reduction in RV function. Severe biatrial dilation, elevated RVSP 45 to 50 mmHg. ? Cardiology consulted, [facility] 07/24/2024 with no stentable CAD. Started Entresto (stop lisinopril), spironolactone 25 mg. Plan to start Jardiance once more euvolemic. - Discharged with Lasix 40mg daily, Aldactone 25mg, Entresto 24/26mg BID, metoprolol succinate 50mg, Jardiance 10mg. - Will follow-up with cardiology within 1 week. #Afib, new diagnosis - Currently rate controlled. - CHADSVASc score is 5. - Cardiology consulted, switched to metoprolol succinate 50mg daily. - Started Eliquis 5 mg twice daily. #Hematuria ? UA positive for 2+ blood. No signs of infection. ? Follow-up urine culture. ? Will benefit from outpatient referral with urology from PCP. Exam Data for Last 24 hours Vital signs and Labs for Last 24 Hours: Temp Pulse Resp BP Pulse Ox O2 Del Method O2 Flow Rate 98.1 F 109 H 19 98/67 L 91 L Room Air 2 07/25/24 11:55 07/25/24 11:55 07/25/24 11:55 07/25/24 11:55 07/25/24 11:55 07/25/24 11:55 07/25/24 08:00 Laboratory Results - last 24 hr 07/25/24 06:35: WBC 5.4, RBC 5.31, Hgb 16.3, Hct 49.1, MCV 92.5, MCH 30.6, MCHC 33.1, RDW 15.3, Plt Count 111 L, MPV 9.2, Neut % (Auto) 62.9, Lymph % (Auto) 22.5, [place] % (Auto) 12.4 H, Eos % (Auto) 1.3, Baso % (Auto) 0.8, Neut # (Auto) 3.4, Lymph # (Auto) 1.2, [place] # (Auto) 0.7, Eos # (Auto) 0.1, Baso # (Auto) 0.0, Sodium 137, Potassium 3.4 L, Chloride 102, Carbon Dioxide 31 H, Anion Gap 7.4, BUN 22 H, Creatinine 1.20, Estimated Creat Clear 53, Estimated GFR 59, Est GFR ( Amer) 71, Glucose 79, Calcium 8.9, Magnesium 1.8, Total Bilirubin 1.5 H , AST 32, ALT 47, Alkaline Phosphatase 85, Total Protein 5.1 L, Albumin 3.2 L, Globulin 1.9, Albumin/Globulin Ratio 1.7 I & O for Last 24 hours: Intake & Output 07/22/24 07/23/24 07/24/24 07/25/24 23:59 23:59 23:59 23:59 Intake Total 930 / 1070 360 / 360 Output Total 7450 / 7450 150 / 150 Balance -6520 / -6380 210 / 210 Weight 80.24 kg 79.8 kg 73.624 kg Constitutional Constitutional: no acute distress *Routine HEENT Exam Head: Present normocephalic Eye: Present EOMI and PERRL ENT: Present mucous membranes moist *Routine Neck Exam Neck: Present supple; Absent lymphadenopathy *Routine Respiratory Exam Respiratory: Present CTA bilaterally *Routine Cardiovascular Exam Cardiovascular: Present RRR *Routine Abdominal Exam Abdominal: Present soft and normoactive bowel sounds; Absent tenderness *Routine Extremities Exam Extremities: Absent cyanosis, clubbing or edema *Routine Skin Exam Skin: Present warm; Absent rash *Routine Neurological Exam Neurological: Present alert and oriented X3 Results Data Completed and Pending Labs on day of discharge: Labs from last 24 hours 07/25/24 06:35 WBC 5.4 RBC 5.31 Hgb 16.3 Hct 49.1 MCV 92.5 MCH 30.6 MCHC 33.1 RDW 15.3 Plt Count 111 L MPV 9.2 Neut % (Auto) 62.9 Lymph % (Auto) 22.5 [place] % (Auto) 12.4 H Eos % (Auto) 1.3 Baso % (Auto) 0.8 Neut # (Auto) 3.4 Lymph # (Auto) 1.2 [place] # (Auto) 0.7 Eos # (Auto) 0.1 Baso # (Auto) 0.0 Sodium 137 Potassium 3.4 L Chloride 102 Carbon Dioxide 31 H Anion Gap 7.4 BUN 22 H Creatinine 1.20 Estimated Creat Clear 53 Estimated GFR 59 Est GFR ( Amer) 71 Glucose 79 Calcium 8.9 Magnesium 1.8 Total Bilirubin 1.5 H AST 32 ALT 47 Alkaline Phosphatase 85 Total Protein 5.1 L Albumin 3.2 L Globulin 1.9 Albumin/Globulin Ratio 1.7 DS: Diagnosis Discharge Diagnosis (1) Acute HFrEF (heart failure with reduced ejection fraction): Status: Acute Code(s): I50.21 - Acute systolic (congestive) heart failure (2) Atrial fibrillation: Status: Acute Code(s): I48.91 - Unspecified atrial fibrillation Qualifiers: Atrial fibrillation type: unspecified Qualified Code(s): I48.91 - Unspecified atrial fibrillation (3) Bilateral pleural effusion: Status: Acute Code(s): J90 - Pleural effusion, not elsewhere classified (4) Biventricular heart failure: Status: Acute Code(s): I50.82 - Biventricular heart failure (5) Pulmonary edema: Status: Acute Code(s): J81.1 - Chronic pulmonary edema Qualifiers: Chronicity: acute Qualified Code(s): J81.0 - Acute pulmonary edema (6) Elevated troponin I level: Status: Acute Code(s): R79.89 - Other specified abnormal findings of blood chemistry (7) Acute hypoxemic respiratory failure: Status: Acute Code(s): J96.01 - Acute respiratory failure with hypoxia (8) Dementia: Status: Acute Code(s): F03.90 - Unspecified dementia, unspecified severity, without behavioral disturbance, psychotic disturbance, mood disturbance, and anxiety Qualifiers: Dementia behavioral or psychological symptom: unspecified whether behavioral, psychotic, or mood disturbance or anxiety Dementia severity: unspecified severity Dementia type: unspecified type Qualified Code(s): F03.90 - Unspecified dementia, unspecified severity, without behavioral disturbance, psychotic disturbance, mood disturbance, and anxiety (9) CAD (coronary artery disease): Status: Acute Code(s): I25.10 - Atherosclerotic heart disease of [place] coronary artery without angina pectoris Qualifiers: Associated angina: with other forms of angina Coronary Disease- Associated Artery/Lesion type: [place] artery [place] vs. transplanted heart: [place] heart Qualified Code(s): I25.118 - Atherosclerotic heart disease of [place] coronary artery with other forms of angina pectoris (10) Hyperlipidemia: Status: Chronic Code(s): E78.5 - Hyperlipidemia, unspecified Qualifiers: Hyperlipidemia type: unspecified Qualified Code(s): E78.5 - Hyperlipidemia, unspecified (11) Hypertension: Status: Chronic Code(s): I10 - Essential (primary) hypertension Qualifiers: Hypertension type: essential hypertension Qualified Code(s): I10 - Essential (primary) hypertension Meds Home Medications and Allergies Home Medications ?Medication ?Instructions ?Recorded ?Confirmed ?Type thiamine HCl (vitamin B1) 100 mg 100 mg PO DAILY #90 tabs 08/08/22 07/24/24 Rx tablet cholecalciferol (vitamin D3) 25 25 mcg PO DAILY 11/28/22 07/24/24 History mcg (1,000 unit) capsule turmeric 100 mg-arely 150 1 cap PO DAILY 11/28/22 07/24/24 History mg-olive 50 mg-oreg 150 mg-capryl capsule allopurinol 300 mg tablet 300 mg PO DAILY 07/23/24 07/24/24 History atorvastatin 20 mg tablet 20 mg PO DAILY 07/23/24 07/24/24 History tamsulosin 0.4 mg capsule 0.4 mg PO HS 07/23/24 07/24/24 History ascorbic acid (vitamin C) 1,000 mg 1,000 mg PO DAILY 07/24/24 07/24/24 History capsule aspirin 81 mg tablet,delayed 81 mg PO DAILY 07/24/24 07/24/24 History release apixaban 5 mg tablet (Eliquis) 5 mg PO BID 30 days #60 tabs 07/25/24 Rx empagliflozin 10 mg tablet 10 mg PO DAILY 30 days #30 tabs 07/25/24 Rx (Jardiance) furosemide 40 mg tablet 40 mg PO DAILY 30 days #30 tabs 07/25/24 Rx metoprolol succinate 50 mg 50 mg PO DAILY 30 days #30 tabs 07/25/24 Rx tablet,extended release 24 hr (Toprol XL) sacubitril 24 mg-valsartan 26 mg 1 tab PO BID 30 days #60 tabs 07/25/24 Rx tablet (Entresto) spironolactone 25 mg tablet 25 mg PO DAILY 30 days #30 tabs 07/25/24 Rx New Prescriptions to Start Prescriptions: apixaban [Eliquis] Carl Anthony empagliflozin [Jardiance] Carl Anthony furosemide Carl Anthony metoprolol succinate [Toprol XL] Carl Anthony sacubitril-valsartan [Entresto] Carl Anthony spironolactone Carl Anthony Allergies Allergy/AdvReac Type Severity Reaction Status Date / Time No Known Allergies Allergy Verified 11/17/23 10:57 Discharge Plan Disposition Patient Disposition: Home, Self-Care Follow up Plan Follow up with: Maegan Hernandez APRN [Nurse Practitioner] - 08/06/24 1:45 pm Marcelo Lara DO [Primary Care Provider] - 08/06/24 11:00 am (Hematuria on UA. May need referral to urology) Prescriptions/Medication Reconciliation: New furosemide 40 mg Tablet 40 mg PO DAILY 30 Days Qty: 30 0RF metoprolol succinate [Toprol XL] 50 mg Tablet Extended Release 24 Hr 50 mg PO DAILY 30 Days Qty: 30 0RF spironolactone 25 mg Tablet 25 mg PO DAILY 30 Days Qty: 30 0RF Jardiance 10 mg Tablet 10 mg PO DAILY 30 Days Qty: 30 0RF Entresto 24-26 mg Tablet 1 tab PO BID 30 Days Qty: 60 0RF Eliquis 5 mg Tablet 5 mg PO BID 30 Days Qty: 60 0RF Continued thiamine HCl (vitamin B1) 100 mg tablet 100 mg PO DAILY Qty: 90 1RF cholecalciferol (vitamin D3) 25 mcg (1,000 unit) capsule 25 mcg PO DAILY [id number]-uvql-ojsbn-oreg-capry 100 mg-150 mg- 50 mg-150 mg capsule 1 cap PO DAILY tamsulosin 0.4 mg capsule 0.4 mg PO HS allopurinol 300 mg tablet 300 mg PO DAILY atorvastatin 20 mg tablet 20 mg PO DAILY ascorbic acid (vitamin C) 1,000 mg capsule 1,000 mg PO DAILY aspirin 81 mg tablet,delayed release (DR/EC) 81 mg PO DAILY Discontinued carvedilol [Coreg] 6.25 mg tablet 6.25 mg PO BID Qty: 180 2RF lisinopril 10 mg tablet 10 mg PO BID Problem Reconciliation Problems Reviewed?: Yes Patient Discharge Instructions Patient Instructions: DI for Heart Failure, DI for Atrial Fibrillation, DI for Pleural Effusion, Catheter-Associated Urinary Tract Infection Print Language: [place] Citizen Providers Primary Care Provider: Marcelo Lara Admit Provider: Carl Anthony Attending Provider: Carl Anthony
[2024-07-25] MEDS: METOPROLOL SUCCINATE XL 50MG TABLET 50 MG PO (13:00)
[2024-07-25] MEDS: EMPAGLIFLOZIN 10MG TABLET 10 MG PO (13:00)
--- NOTE | 2024-07-29 12:56 | SW/DCPLANNER ---
Spoke with patients , cleared questions regarding medications that were discontinued. Patients stated that everything is going good and she had no more questions. 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
== END 2024-07-25 14:10 | disposition home or self-care (01) ==
LOC: ER 17:03 → 2ND 17:31
PROVIDERS: Internal Medicine; Nurse Practitioner Family; Physician Assistant; Admitting Provider Student in an Organized Health Care Education/Training Program; Emergency Provider Emergency Medicine; PCP Internal Medicine; Visit Provider Student in an Organized Health Care Education/Training Program
DX: I11.0 Hypertensive heart disease with heart failure (principal); I48.91 Unspecified atrial fibrillation; I25.118 Atherosclerotic heart disease of native coronary artery with other forms of angina pectoris; I50.21 Acute systolic (congestive) heart failure; J90 Pleural effusion, not elsewhere classified; J81.0 Acute pulmonary edema; R79.89 Other specified abnormal findings of blood chemistry; J96.01 Acute respiratory failure with hypoxia; Z98.890 Other specified postprocedural states; Z95.5 Presence of coronary angioplasty implant and graft; E78.5 Hyperlipidemia, unspecified; F03.90 Unspecified dementia, unspecified severity, without behavioral disturbance, psychotic disturbance, mood disturbance, and anxiety; I50.82 Biventricular heart failure; Z79.899 Other long term (current) drug therapy
CPT/HCPCS: 36415; 51702; 71045; 71275; 74177; 80053; 80061; 81001; 82803; 83605; 83690; 83735; 83880; 84145; 84436; 84443; 84479; 84484; 85025; 85378; 85610; 86803; 87389; 87636; 93005; 93306; 93459; 99152; 99291; C1725; C1769; C1894; G0378; J1200; J1644; J1650; J1940; J2250; J3010; J3475; Q9967

== ENCOUNTER 2024-08-13 09:40 | Outpatient (RCR) | payer MEDICARE, SELFPAY | END 2024-08-13 23:59 | disposition home or self-care (01) | LOC: PT 09:40 | PROVIDERS: Visit Provider Nurse Practitioner Family | DX: I25.118 Atherosclerotic heart disease of native coronary artery with other forms of angina pectoris (principal); I50.20 Unspecified systolic (congestive) heart failure; I50.82 Biventricular heart failure; Z95.5 Presence of coronary angioplasty implant and graft ==

== ENCOUNTER 2024-08-20 14:12 | Emergency (ER) | payer MEDICARE, SELFPAY ==
[2024-08-20] VITALS (18 sets, daily range): BP systolic 80–137; BP diastolic 54–104; PULSE 57–80; RESP 16; TEMP 36.8–36.9; O2SAT 91–97; BMI 26.6
--- NOTE | 2024-08-20 14:51 | XR_ITS ---
FINAL REPORT CLINICAL HISTORY: Shortness of air COMPARISON: None FINDINGS: A single portable view of the chest was obtained. There is evidence of a prior midline sternotomy. Cardiomegaly is present. The mediastinum is within normal limits. No acute pulmonary abnormality is identified. The bony thorax is intact. IMPRESSION: Cardiomegaly, without acute pulmonary abnormality. Reviewed, Interpreted and Dictated by David Valerio III, MD Transcribed by Rhonda Metcalf Authenticated and [facility]
--- NOTE | 2024-08-20 14:53 | ECG_ITS ---
APPROVED REPORT Exam: Resting ECG HR:75 bpm ECG Measurements Heart Rate 75 AXES ME 142 P 106 QRSd 166 QRS -70 QT 477 T 108 QTc 506 Conclusion SINUS RHYTHM WITH OCCASIONAL VENTRICULAR PREMATURE COMPLEXES RIGHT BUNDLE BRANCH BLOCK [120+ ms QRS DURATION, UPRIGHT V1, 40+ ms S IN I/aVL/V4/V5/V6] LEFT ANTERIOR FASCICULAR BLOCK [QRS AXIS <= -45, QR IN I, RS IN II] MODERATE T-WAVE ABNORMALITY, CONSIDER LATERAL ISCHEMIA [-0.1+ mV T-WAVE IN I/aVL/V5/V6] ABNORMAL ECG Electronically signed by : CATIA DARNELL, 08/21/2024 16:05:36
[2024-08-20 14:54] LABS: Basophils # 0.1 K/mm3 (0-0.2); Eosinophils # 0.1 K/mm3 (0.0-0.4); Hematocrit 53.4 % (42.0-52.0); Hemoglobin 17.2 g/dL (14.1-18.0); Lymphocytes # 1.1 K/mm3 (0.7-4.5); Lymphocytes % 19.4 % (10-50); Mean Corpuscular HGB Conc 32.2 g/dL (31.8-35.4); Mean Corpuscular Hemoglobin 29.9 pg (27.0-31.2); Mean Corpuscular Volume 92.8 fl (80-94); Mean Platelet Volume 9.2 fl (7.4-10.4); Monocytes # 0.4 K/mm3 (0.1-1.0); Monocytes % 6.4 % (1.7-9.3); Neutrophils # 3.9 K/mm3 (1.8-7.8); Neutrophils % 71.2 % (37.0-80.0); Platelet Count 114 K/mm3 (142-424); Red Blood Count 5.76 M/mm3 (4.60-6.20); Red Cell Distribution Width 15.5 % (11.5-17.5); White Blood Count 5.5 K/mm3 (4.8-10.8)
[2024-08-20 14:56] LABS: Albumin Level 4.2 g/dl (3.5-5.0); Chloride 104 mmol/L (98-107); Sodium 140 mmol/L (136-145)
--- NOTE | 2024-08-20 14:56 | ED_ITS ---
<Statement entered by Alexia Handy DO - 08/20/24 15:27> I was consulted by the JOSÉ MIGUEL, and we discussed the complexity of the problems being addressed. I approved the treatment and management plan for this patient's care in the emergency department, thus performing a substantive portion of the medical decision making. Alexia Handy DO Discharge Plan Disposition Patient Disposition: Xfer Short-Term Hosp Prescriptions Prescriptions: No Action thiamine HCl (vitamin B1) 100 mg tablet 100 mg PO DAILY Qty: 90 1RF cholecalciferol (vitamin D3) 25 mcg (1,000 unit) capsule 25 mcg PO DAILY qqjunwjs-zjwf-fvbqf-oreg-capry 100 mg-150 mg- 50 mg-150 mg capsule 1 cap PO DAILY tamsulosin 0.4 mg capsule 0.4 mg PO HS allopurinol 300 mg tablet 300 mg PO DAILY atorvastatin 20 mg tablet 20 mg PO DAILY ascorbic acid (vitamin C) 1,000 mg capsule 1,000 mg PO DAILY aspirin 81 mg tablet,delayed release (DR/EC) 81 mg PO DAILY furosemide 40 mg Tablet 40 mg PO DAILY 30 Days Qty: 30 0RF metoprolol succinate [Toprol XL] 50 mg Tablet Extended Release 24 Hr 50 mg PO DAILY 30 Days Qty: 30 0RF spironolactone 25 mg Tablet 25 mg PO DAILY 30 Days Qty: 30 0RF Jardiance 10 mg Tablet 10 mg PO DAILY 30 Days Qty: 30 0RF Entresto 24-26 mg Tablet 1 tab PO BID 30 Days Qty: 60 0RF Eliquis 5 mg Tablet 5 mg PO BID 30 Days Qty: 60 0RF Referrals Follow up/Referrals: Marcelo Lara DO [Primary Care Provider] - See instructions Clinical Impressions Clinical Impression: Acute hypotension, CHANG (acute kidney injury), Bilateral renal masses Stand Alone Forms Stand Alone Forms: Transfer Record - ED Print Language Print Language: Irish Discharge ED Provider: Jose Angel Blevins General Adult HPI <DULCE MARIA Orellana - Last Filed: 08/20/24 21:01> General Chief complaint: Recheck/Abnormal Lab/Rx Stated complaint: blood pressure issues Time Seen by Provider: 08/20/24 14:37 Mode of Arrival: Ambulatory Source of Information: Patient and Spouse Limitations: No Limitations Description of Symptoms (Recalled from ER Triage Doc. by RN): pts reports she brought him in to have his BP checked. pt denies any complaints. No chest pain, SOA, or abd pain. pts reports he was here and admitted around 3wks ago for heart failure. pt is A&O x3, reports he has recently been dx with dementia. History of Present Illness HPI narrative: 79-year-old male presents to the emergency department accompanied by his spouse, for multiple low blood pressure readings at [facility] , patient's spouse states that his blood pressure today was 100 systolic, he denies any acute symptomatology to include fever chills chest pain shortness of breath cough congestion, denies any abdominal pain constipation, diarrhea, denies any urinary symptomatology except for increased urinary frequency. Both the patient and are poor historians, patient has data deficient history of dementia. Patient was recently seen in the emergency department and was subsequently admitted on 07/23/2024 and discharged on 07/25/2024. Patient has past medical history consistent with CAD status post stent placement, CABG, hypertension, was recently diagnosed with HFrEF with ejection fraction in the 40s, bilateral pleural effusion, newly diagnosed atrial fibrillation on Eliquis. Denies any history of alcohol tobacco or drug use, initial triage vitals are notable for hypotension with 87 systolic, SpO2 is 93% on room air, otherwise unremarkable. Onset (ago): hour(s) Related Data Home Medications ?Medication ?Instructions ?Recorded ?Confirmed cholecalciferol (vitamin D3) 25 25 mcg PO DAILY 11/28/22 08/06/24 mcg (1,000 unit) capsule turmeric 100 mg-arely 150 1 cap PO DAILY 11/28/22 08/06/24 mg-olive 50 mg-oreg 150 mg-capryl capsule allopurinol 300 mg tablet 300 mg PO DAILY 07/23/24 08/06/24 atorvastatin 20 mg tablet 20 mg PO DAILY 07/23/24 08/06/24 tamsulosin 0.4 mg capsule 0.4 mg PO HS 07/23/24 08/06/24 ascorbic acid (vitamin C) 1,000 mg 1,000 mg PO DAILY 07/24/24 08/06/24 capsule aspirin 81 mg tablet,delayed 81 mg PO DAILY 07/24/24 08/06/24 release Previous Rx's ?Medication ?Instructions ?Recorded thiamine HCl (vitamin B1) 100 mg 100 mg PO DAILY #90 tabs 08/08/22 tablet apixaban 5 mg tablet (Eliquis) 5 mg PO BID 30 days #60 tabs 07/25/24 empagliflozin 10 mg tablet 10 mg PO DAILY 30 days #30 tabs 07/25/24 (Jardiance) furosemide 40 mg tablet 40 mg PO DAILY 30 days #30 tabs 07/25/24 metoprolol succinate 50 mg 50 mg PO DAILY 30 days #30 tabs 07/25/24 tablet,extended release 24 hr (Toprol XL) sacubitril 24 mg-valsartan 26 mg 1 tab PO BID 30 days #60 tabs 07/25/24 tablet (Entresto) spironolactone 25 mg tablet 25 mg PO DAILY 30 days #30 tabs 07/25/24 Allergies Allergy/AdvReac Type Severity Reaction Status Date / Time No Known Allergies Allergy Verified 08/20/24 14:51 <Jose Angel Blevins MD - Last Filed: 08/20/24 21:56> History of Present Illness HPI narrative: 79-year-old male presents to the emergency department accompanied by his spouse, for multiple low blood pressure readings at [facility] , patient's spouse states that his blood pressure today was 100 systolic, he denies any acute symptomatology to include fever chills chest pain shortness of breath cough congestion, denies any abdominal pain constipation, diarrhea, denies any urinary symptomatology except for increased urinary frequency. Both the patient and are poor historians, patient has history of dementia. Patient was recently seen in the emergency department and was subsequently admitted on 07/23/2024 and discharged on 07/25/2024. Patient has past medical history consistent with CAD status post stent placement, CABG, hypertension, was recently diagnosed with HFrEF with ejection fraction in the 40s, bilateral pleural effusion, newly diagnosed atrial fibrillation on Eliquis. Denies any history of alcohol tobacco or drug use, initial triage vitals are notable for hypotension with 87 systolic, SpO2 is 93% on room air, otherwise unremarkable. [facility] <DULCE MARIA Orellana - Last Filed: 08/20/24 21:01> [facility] Disclaimer: The information contained in this section may have been updated after the patient was seen, as this information can be updated by other users. Medical History Biventricular heart failure Tobacco use Alcohol use Dementia Elevated troponin I level Pulmonary edema Atrial fibrillation Bilateral pleural effusion Acute hypoxemic respiratory failure Hyperlipidemia History of sleep apnea CAD (coronary artery disease) Acute HFrEF (heart failure with reduced ejection fraction) Gout High cholesterol Hypertension Surgical History History of open heart surgery Hx of heart artery stent Family History Other Coronary artery disease Hypertension Social History Smoking Status: Never smoker alcohol intake: current alcohol intake frequency: a few times a week substance use type: denies use current occupational status: retired Travel in the last 8 weeks: None household members: spouse housing: house marital status: Other Medical History Have you received the Flu Vaccine for this season: No Have you received the Pneumonia Vaccine: No <DULCE MARIA Orellana - Last Filed: 08/20/24 21:01> ROS Obtained: Yes All systems reviewed & no additional complaints except as documented Physical Exam <DULCE MARIA Orellana - Last Filed: 08/20/24 21:01> General General appearance: alert and in no apparent distress Head Head exam: atraumatic and normocephalic Eye Eye exam: Present PERRL and EOMI ENT ENT exam: Present mucous membranes dry; Absent mucous membranes moist Neck Neck exam: Present normal inspection Chest Chest inspection: Present normal inspection and symmetric chest wall rise Respiratory Respiratory exam: Present normal lung sounds bilaterally; Absent respiratory distress Cardiovascular Cardiovascular exam: Present regular rate and normal rhythm Abdominal Exam Abdominal exam: Present soft; Absent tenderness, guarding, rebound or rigidity Extremities Exam Extremities exam: Present normal inspection Neurological Exam Neurological exam: Present alert and oriented X3 Psychiatric Psychiatric exam: Present normal affect Skin Skin exam: Present warm and dry Medical Decision Making <DULCE MARIA Orellana - Last Filed: 08/20/24 21:01> Medical Records Medical records reviewed: Yes I reviewed the patient's medical records. Screening: Per USPSTF and CDC recommendations, given the prevalence of disease in our region, it is our hospital?s policy to screen for HIV and viral Hepatitis for all patients aged 18 and over and those with ongoing risk factors. [place] Inquiry Pt receiving controlled substance: No L[place] was queried for this patient: No Vital Signs: 08/20/24 14:32 08/20/24 14:36 08/20/24 14:38 Temperature 98.2 F Temperature Source Oral Pulse Rate 74 74 Pulse Rate [Left] 62 Respiratory Rate 16 Blood Pressure 83/59 L 80/54 L Blood Pressure [Right Arm] 86/61 L Blood Pressure Mean [Right Arm] 69 Blood Pressure Source [Right Arm] Automatic Cuff Blood Pressure Position [Right Arm] Sitting 02 Sat by Pulse Oximetry 96 96 95 Oxygen Delivery Method Room Air 08/20/24 14:50 08/20/24 15:00 08/20/24 18:12 Temperature Temperature Source Pulse Rate 63 76 78 Pulse Rate [Left] Respiratory Rate Blood Pressure 87/62 L 87/62 L 100/75 L Blood Pressure [Right Arm] Blood Pressure Mean [Right Arm] Blood Pressure Source [Right Arm] Blood Pressure Position [Right Arm] 02 Sat by Pulse Oximetry 93 L 93 L 97 Oxygen Delivery Method 08/20/24 18:20 08/20/24 19:55 08/20/24 20:20 Temperature Temperature Source Pulse Rate 57 L 75 78 Pulse Rate [Left] Respiratory Rate Blood Pressure 101/71 L 112/75 137/104 H Blood Pressure [Right Arm] Blood Pressure Mean [Right Arm] Blood Pressure Source [Right Arm] Blood Pressure Position [Right Arm] 02 Sat by Pulse Oximetry 94 L 96 96 Oxygen Delivery Method 08/20/24 20:30 08/20/24 20:35 08/20/24 20:44 Temperature Temperature Source Pulse Rate 77 80 75 Pulse Rate [Left] Respiratory Rate Blood Pressure 81/57 L 91/62 L 98/60 L Blood Pressure [Right Arm] Blood Pressure Mean [Right Arm] Blood Pressure Source [Right Arm] Blood Pressure Position [Right Arm] 02 Sat by Pulse Oximetry 96 92 L 95 Oxygen Delivery Method 08/20/24 20:50 08/20/24 21:00 08/20/24 21:10 Temperature Temperature Source Pulse Rate 77 71 79 Pulse Rate [Left] Respiratory Rate Blood Pressure 87/61 L 103/62 L 104/75 L Blood Pressure [Right Arm] Blood Pressure Mean [Right Arm] Blood Pressure Source [Right Arm] Blood Pressure Position [Right Arm] 02 Sat by Pulse Oximetry 91 L 93 L 93 L Oxygen Delivery Method 08/20/24 21:20 08/20/24 21:30 08/20/24 22:27 Temperature 98.4 F Temperature Source Pulse Rate 64 78 72 Pulse Rate [Left] Respiratory Rate 16 Blood Pressure 117/69 109/74 L 121/82 Blood Pressure [Right Arm] Blood Pressure Mean [Right Arm] Blood Pressure Source [Right Arm] Blood Pressure Position [Right Arm] 02 Sat by Pulse Oximetry 93 L 95 Oxygen Delivery Method Room Air Lab Data Lab results reviewed: Yes I reviewed the patient's lab results. Lab Results 08/20/24 14:31: WBC 5.5, RBC 5.76, Hgb 17.2, Hct 53.4 H, MCV 92.8, MCH 29.9, MCHC 32.2, RDW 15.5, Plt Count 114 L, MPV 9.2, Neut % (Auto) 71.2, Lymph % (Auto) 19.4, [place] % (Auto) 6.4, Eos % (Auto) 1.0, Baso % (Auto) 2.0, Neut # (Auto) 3.9, Lymph # (Auto) 1.1, [place] # (Auto) 0.4, Eos # (Auto) 0.1, Baso # (Auto) 0.1, Sodium 140, Potassium 4.6, Chloride 104, Carbon Dioxide 29, Anion Gap 11.6, BUN 51 H, Creatinine 1.80 H, Estimated Creat Clear 34, Estimated GFR 37 L, Est GFR ( Amer) 44 L, Glucose 100, Calcium 10.3 H, Magnesium 2.2, Total Bilirubin 1.1, AST 39, ALT 20, Alkaline Phosphatase 81, Troponin I 0.03, N T-Pro-B Natriuret Pep 2310 H, Total Protein 6.7 D, Albumin 4.2, Globulin 2.5, Albumin/Globulin Ratio 1.7 08/20/24 16:15: Urine Color Yellow, Urine Appearance Clear, Urine pH 6.0, Ur Specific [place] 1.010, Urine Protein Negative, Urine Glucose (UA) 1+, Urine Ketones Negative, Urine Blood Negative, Urine Nitrate Negative, Urine Bilirubin Negative, Urine Urobilinogen 0.2, Ur Leukocyte Esterase Negative, Urine RBC None, Urine WBC 3-5, Ur Squamous Epith Cells Occasional, Urine Bacteria None 08/20/24 17:59: Troponin I 0.02 08/20/24 20:55: Troponin I 0.02 08/20/24 14:31 08/20/24 14:31 Orders (Tests/Meds): ED MEDICATIONS Discontinued Medications Generic Name Dose Route Start Last Admin Trade Name Freq PRN Reason Stop Dose Admin Sodium Chloride 1,000 mls @ 500 mls/hr 08/20/24 14:54 08/20/24 15:02 Sod Chlor 0.9% 1000ml Bag IV 08/20/24 16:53 500 mls/hr .Q2H ONE Administration Sodium Chloride 1,000 mls @ 500 mls/hr 08/20/24 18:30 08/20/24 19:55 Sod Chlor 0.9% 1000ml Bag IV 08/20/24 20:29 500 mls/hr .Q2H ONE Administration Iopamidol 75 ml 08/20/24 15:28 08/20/24 15:29 Iopamidol-370 (76%);100ml Bottle IV 08/20/24 15:29 75 ml ONCE ONE Administration Sodium Chloride 10 ml 08/20/24 15:28 08/20/24 15:29 Sodium Chloride 0.9% 10ml Syr (Rad Only) IV 08/20/24 15:29 10 ml ONCE ONE Administration Sodium Chloride 50 ml 08/20/24 15:28 08/20/24 15:28 0.9 % Sodium Chloride 50 Ml Vial IV 08/20/24 15:29 50 ml ONCE ONE Administration ORDERS Category Date Time Status CT abdomen pelvis w con Stat Cat Scan 08/20/24 15:[address] angio chest PE protocol Stat Cat Scan 08/20/24 15:04 Completed POCUS Point of Care (ER Only) Stat Exams 08/20/24 14:41 Completed XR chest portable Stat Exams 08/20/24 14:51 Completed BNP [NT Pro Brain Natriuretic Pep.] Stat Lab 08/20/24 14:31 Completed Complete Blood Count Auto Diff Stat Lab 08/20/24 14:31 Completed Comprehensive Metabolic Panel Stat Lab 08/20/24 14:31 Completed MAG [Magnesium] Stat Lab 08/20/24 14:31 Completed Trop I [Troponin I] Stat Lab 08/20/24 14:31 Completed Troponin I Q3H Lab 08/20/24 17:59 Completed Troponin I Q3H Lab 08/20/24 20:55 Completed UA [Urinalysis and Microscopic] Stat Lab 08/20/24 16:15 Completed Medical Decision Narrative: 79-year-old male presents the emergency department with hypotension, differential diagnose include but not limited to acute dehydration, volume depletion, cardiac tamponade, PE, CHF exacerbation, pulmonary edema, electrolyte disturbance, cardiac arrhythmia, small bowel obstruction. I discussed this patient's case with the attending physician, Dr. Handy she saw and examined the patient as well and performed bedside ultrasound myself. Will obtain basic laboratory studies, magnesium level proBNP, troponin, EKG, will obtain basic laboratory studies, magnesium level proBNP, troponin, EKG, will perform [id number] ultrasound, will obtain chest x-ray, CTA chest without contrast CT abdomen pelvis with and without contrast and will give 500 mL IV NS, urinalysis CBC is notable for thrombocytopenia 114 otherwise unremarkable CMP is notable for acute kidney injury with creatinine 1.8, BUN is 58 which is elevated, GFR 37. I reviewed the patient's EKG, sinus rhythm with occasional PVCs, with a right bundle branch block that appears chronic, 75 bpm IA interval within normal limits, QT interval within normal limits there is no STEMI. proBNP is elevated at 2310. Which is decreased from admission/prior ED visit. Urinalysis unremarkable. I reviewed the patient's CT abdomen pelvis with contrast along with the corresponding radiologic report gallstone in the gallbladder with mild wall thickening, cholecystitis is not excluded, nuclear medicine hepatobiliary scan is recommended. There is a mass in the right kidney consistent with renal neoplasm likely renal cell carcinoma mass in the left kidney may represent a renal neoplasm. Urinalysis unremarkable. I reviewed the patient's CTA chest along with the corresponding radiologic report, no evidence of pulmonary embolism there is diffuse cardiomegaly present in the thoracic aorta is unopacified which cannot be evaluated for dissection. Additional dose of IV 500 mL NS Discussed the patient's case with transfer physician Dr. Landin at 8:30 PM unfortunately [facility] is on a surgical divert and denied this transfer at this time he recommends outpatient follow-up at this time. Unfortunately, [facility] placed and are both on a wait list as well. Will place patient on waitlist to [facility]. I discussed the patient's case with Dr. Blevins the attending physician at shift change disposition will depend on waitlist status at [facility] pending callbacks. <Alexia N Handy, DO - Last Filed: 08/21/24 07:28> Vital Signs: 08/20/24 14:32 08/20/24 14:36 08/20/24 14:38 Temperature 98.2 F Temperature Source Oral Pulse Rate 74 74 Pulse Rate [Left] 62 Respiratory Rate 16 Blood Pressure 83/59 L 80/54 L Blood Pressure [Right Arm] 86/61 L Blood Pressure Mean [Right Arm] 69 Blood Pressure Source [Right Arm] Automatic Cuff Blood Pressure Position [Right Arm] Sitting 02 Sat by Pulse Oximetry 96 96 95 Oxygen Delivery Method Room Air 08/20/24 14:50 08/20/24 15:00 08/20/24 18:12 Temperature Temperature Source Pulse Rate 63 76 78 Pulse Rate [Left] Respiratory Rate Blood Pressure 87/62 L 87/62 L 100/75 L Blood Pressure [Right Arm] Blood Pressure Mean [Right Arm] Blood Pressure Source [Right Arm] Blood Pressure Position [Right Arm] 02 Sat by Pulse Oximetry 93 L 93 L 97 Oxygen Delivery Method 08/20/24 18:20 08/20/24 19:55 08/20/24 20:20 Temperature Temperature Source Pulse Rate 57 L 75 78 Pulse Rate [Left] Respiratory Rate Blood Pressure 101/71 L 112/75 137/104 H Blood Pressure [Right Arm] Blood Pressure Mean [Right Arm] Blood Pressure Source [Right Arm] Blood Pressure Position [Right Arm] 02 Sat by Pulse Oximetry 94 L 96 96 Oxygen Delivery Method 08/20/24 20:30 08/20/24 20:35 08/20/24 20:44 Temperature Temperature Source Pulse Rate 77 80 75 Pulse Rate [Left] Respiratory Rate Blood Pressure 81/57 L 91/62 L 98/60 L Blood Pressure [Right Arm] Blood Pressure Mean [Right Arm] Blood Pressure Source [Right Arm] Blood Pressure Position [Right Arm] 02 Sat by Pulse Oximetry 96 92 L 95 Oxygen Delivery Method 08/20/24 20:50 08/20/24 21:00 08/20/24 21:10 Temperature Temperature Source Pulse Rate 77 71 79 Pulse Rate [Left] Respiratory Rate Blood Pressure 87/61 L 103/62 L 104/75 L Blood Pressure [Right Arm] Blood Pressure Mean [Right Arm] Blood Pressure Source [Right Arm] Blood Pressure Position [Right Arm] 02 Sat by Pulse Oximetry 91 L 93 L 93 L Oxygen Delivery Method 08/20/24 21:20 08/20/24 21:30 08/20/24 22:27 Temperature 98.4 F Temperature Source Pulse Rate 64 78 72 Pulse Rate [Left] Respiratory Rate 16 Blood Pressure 117/69 109/74 L 121/82 Blood Pressure [Right Arm] Blood Pressure Mean [Right Arm] Blood Pressure Source [Right Arm] Blood Pressure Position [Right Arm] 02 Sat by Pulse Oximetry 93 L 95 Oxygen Delivery Method Room Air Lab Data Lab Results 08/20/24 14:31: WBC 5.5, RBC 5.76, Hgb 17.2, Hct 53.4 H, MCV 92.8, MCH 29.9, MCHC 32.2, RDW 15.5, Plt Count 114 L, MPV 9.2, Neut % (Auto) 71.2, Lymph % (Auto) 19.4, [place] % (Auto) 6.4, Eos % (Auto) 1.0, Baso % (Auto) 2.0, Neut # (Auto) 3.9, Lymph # (Auto) 1.1, [place] # (Auto) 0.4, Eos # (Auto) 0.1, Baso # (Auto) 0.1, Sodium 140, Potassium 4.6, Chloride 104, Carbon Dioxide 29, Anion Gap 11.6, BUN 51 H, Creatinine 1.80 H, Estimated Creat Clear 34, Estimated GFR 37 L, Est GFR ( Amer) 44 L, Glucose 100, Calcium 10.3 H, Magnesium 2.2, Total Bilirubin 1.1, AST 39, ALT 20, Alkaline Phosphatase 81, Troponin I 0.03, N T-Pro-B Natriuret Pep 2310 H, Total Protein 6.7 D, Albumin 4.2, Globulin 2.5, Albumin/Globulin Ratio 1.7 08/20/24 16:15: Urine Color Yellow, Urine Appearance Clear, Urine pH 6.0, Ur Specific [place] 1.010, Urine Protein Negative, Urine Glucose (UA) 1+, Urine Ketones Negative, Urine Blood Negative, Urine Nitrate Negative, Urine Bilirubin Negative, Urine Urobilinogen 0.2, Ur Leukocyte Esterase Negative, Urine RBC None, Urine WBC 3-5, Ur Squamous Epith Cells Occasional, Urine Bacteria None 08/20/24 17:59: Troponin I 0.02 08/20/24 20:55: Troponin I 0.02 Orders (Tests/Meds): ED MEDICATIONS Discontinued Medications Generic Name Dose Route Start Last Admin Trade Name Ashley PRN Reason Stop Dose Admin Sodium Chloride 1,000 mls @ 500 mls/hr 08/20/24 14:54 08/20/24 15:02 Sod Chlor 0.9% 1000ml Bag IV 08/20/24 16:53 500 mls/hr .Q2H ONE Administration Sodium Chloride 1,000 mls @ 500 mls/hr 08/20/24 18:30 08/20/24 19:55 Sod Chlor 0.9% 1000ml Bag IV 08/20/24 20:29 500 mls/hr .Q2H ONE Administration Iopamidol 75 ml 08/20/24 15:28 08/20/24 15:29 Iopamidol-370 (76%);100ml Bottle IV 08/20/24 15:29 75 ml ONCE ONE Administration Sodium Chloride 10 ml 08/20/24 15:28 08/20/24 15:29 Sodium Chloride 0.9% 10ml Syr (Rad Only) IV 08/20/24 15:29 10 ml ONCE ONE Administration Sodium Chloride 50 ml 08/20/24 15:28 08/20/24 15:28 0.9 % Sodium Chloride 50 Ml Vial IV 08/20/24 15:29 50 ml ONCE ONE Administration ORDERS Category Date Time Status CT abdomen pelvis w con Stat Cat Scan 08/20/24 15:[address] angio chest PE protocol Stat Cat Scan 08/20/24 15:04 Completed POCUS Point of Care (ER Only) Stat Exams 08/20/24 14:41 Completed XR chest portable Stat Exams 08/20/24 14:51 Completed BNP [NT Pro Brain Natriuretic Pep.] Stat Lab 08/20/24 14:31 Completed Complete Blood Count Auto Diff Stat Lab 08/20/24 14:31 Completed Comprehensive Metabolic Panel Stat Lab 08/20/24 14:31 Completed MAG [Magnesium] Stat Lab 08/20/24 14:31 Completed Trop I [Troponin I] Stat Lab 08/20/24 14:31 Completed Troponin I Q3H Lab 08/20/24 17:59 Completed Troponin I Q3H Lab 08/20/24 20:55 Completed UA [Urinalysis and Microscopic] Stat Lab 08/20/24 16:15 Completed <Jose Angel Blevins MD - Last Filed: 08/20/24 21:56> Vital Signs: 08/20/24 14:32 08/20/24 14:36 08/20/24 14:38 Temperature 98.2 F Temperature Source Oral Pulse Rate 74 74 Pulse Rate [Left] 62 Respiratory Rate 16 Blood Pressure 83/59 L 80/54 L Blood Pressure [Right Arm] 86/61 L Blood Pressure Mean [Right Arm] 69 Blood Pressure Source [Right Arm] Automatic Cuff Blood Pressure Position [Right Arm] Sitting 02 Sat by Pulse Oximetry 96 96 95 Oxygen Delivery Method Room Air 08/20/24 14:50 08/20/24 15:00 08/20/24 18:12 Temperature Temperature Source Pulse Rate 63 76 78 Pulse Rate [Left] Respiratory Rate Blood Pressure 87/62 L 87/62 L 100/75 L Blood Pressure [Right Arm] Blood Pressure Mean [Right Arm] Blood Pressure Source [Right Arm] Blood Pressure Position [Right Arm] 02 Sat by Pulse Oximetry 93 L 93 L 97 Oxygen Delivery Method 08/20/24 18:20 08/20/24 19:55 08/20/24 20:20 Temperature Temperature Source Pulse Rate 57 L 75 78 Pulse Rate [Left] Respiratory Rate Blood Pressure 101/71 L 112/75 137/104 H Blood Pressure [Right Arm] Blood Pressure Mean [Right Arm] Blood Pressure Source [Right Arm] Blood Pressure Position [Right Arm] 02 Sat by Pulse Oximetry 94 L 96 96 Oxygen Delivery Method 08/20/24 20:30 08/20/24 20:35 08/20/24 20:44 Temperature Temperature Source Pulse Rate 77 80 75 Pulse Rate [Left] Respiratory Rate Blood Pressure 81/57 L 91/62 L 98/60 L Blood Pressure [Right Arm] Blood Pressure Mean [Right Arm] Blood Pressure Source [Right Arm] Blood Pressure Position [Right Arm] 02 Sat by Pulse Oximetry 96 92 L 95 Oxygen Delivery Method 08/20/24 20:50 08/20/24 21:00 08/20/24 21:10 Temperature Temperature Source Pulse Rate 77 71 79 Pulse Rate [Left] Respiratory Rate Blood Pressure 87/61 L 103/62 L 104/75 L Blood Pressure [Right Arm] Blood Pressure Mean [Right Arm] Blood Pressure Source [Right Arm] Blood Pressure Position [Right Arm] 02 Sat by Pulse Oximetry 91 L 93 L 93 L Oxygen Delivery Method 08/20/24 21:20 08/20/24 21:30 08/20/24 22:27 Temperature 98.4 F Temperature Source Pulse Rate 64 78 72 Pulse Rate [Left] Respiratory Rate 16 Blood Pressure 117/69 109/74 L 121/82 Blood Pressure [Right Arm] Blood Pressure Mean [Right Arm] Blood Pressure Source [Right Arm] Blood Pressure Position [Right Arm] 02 Sat by Pulse Oximetry 93 L 95 Oxygen Delivery Method Room Air Lab Data Lab Results 08/20/24 14:31: WBC 5.5, RBC 5.76, Hgb 17.2, Hct 53.4 H, MCV 92.8, MCH 29.9, MCHC 32.2, RDW 15.5, Plt Count 114 L, MPV 9.2, Neut % (Auto) 71.2, Lymph % (Auto) 19.4, [place] % (Auto) 6.4, Eos % (Auto) 1.0, Baso % (Auto) 2.0, Neut # (Auto) 3.9, Lymph # (Auto) 1.1, [place] # (Auto) 0.4, Eos # (Auto) 0.1, Baso # (Auto) 0.1, Sodium 140, Potassium 4.6, Chloride 104, Carbon Dioxide 29, Anion Gap 11.6, BUN 51 H, Creatinine 1.80 H, Estimated Creat Clear 34, Estimated GFR 37 L, Est GFR ( Amer) 44 L, Glucose 100, Calcium 10.3 H, Magnesium 2.2, Total Bilirubin 1.1, AST 39, ALT 20, Alkaline Phosphatase 81, Troponin I 0.03, N T-Pro-B Natriuret Pep 2310 H, Total Protein 6.7 D, Albumin 4.2, Globulin 2.5, Albumin/Globulin Ratio 1.7 08/20/24 16:15: Urine Color Yellow, Urine Appearance Clear, Urine pH 6.0, Ur Specific [place] 1.010, Urine Protein Negative, Urine Glucose (UA) 1+, Urine Ketones Negative, Urine Blood Negative, Urine Nitrate Negative, Urine Bilirubin Negative, Urine Urobilinogen 0.2, Ur Leukocyte Esterase Negative, Urine RBC None, Urine WBC 3-5, Ur Squamous Epith Cells Occasional, Urine Bacteria None 08/20/24 17:59: Troponin I 0.02 08/20/24 20:55: Troponin I 0.02 Orders (Tests/Meds): ED MEDICATIONS Discontinued Medications Generic Name Dose Route Start Last Admin Trade Name Freq PRN Reason Stop Dose Admin Sodium Chloride 1,000 mls @ 500 mls/hr 08/20/24 14:54 08/20/24 15:02 Sod Chlor 0.9% 1000ml Bag IV 08/20/24 16:53 500 mls/hr .Q2H ONE Administration Sodium Chloride 1,000 mls @ 500 mls/hr 08/20/24 18:30 08/20/24 19:55 Sod Chlor 0.9% 1000ml Bag IV 08/20/24 20:29 500 mls/hr .Q2H ONE Administration Iopamidol 75 ml 08/20/24 15:28 08/20/24 15:29 Iopamidol-370 (76%);100ml Bottle IV 08/20/24 15:29 75 ml ONCE ONE Administration Sodium Chloride 10 ml 08/20/24 15:28 08/20/24 15:29 Sodium Chloride 0.9% 10ml Syr (Rad Only) IV 08/20/24 15:29 10 ml ONCE ONE Administration Sodium Chloride 50 ml 08/20/24 15:28 08/20/24 15:28 0.9 % Sodium Chloride 50 Ml Vial IV 08/20/24 15:29 50 ml ONCE ONE Administration ORDERS Category Date Time Status CT abdomen pelvis w con Stat Cat Scan 08/20/24 15:[address] angio chest PE protocol Stat Cat Scan 08/20/24 15:04 Completed POCUS Point of Care (ER Only) Stat Exams 08/20/24 14:41 Completed XR chest portable Stat Exams 08/20/24 14:51 Completed BNP [NT Pro Brain Natriuretic Pep.] Stat Lab 08/20/24 14:31 Completed Complete Blood Count Auto Diff Stat Lab 08/20/24 14:31 Completed Comprehensive Metabolic Panel Stat Lab 08/20/24 14:31 Completed MAG [Magnesium] Stat Lab 08/20/24 14:31 Completed Trop I [Troponin I] Stat Lab 08/20/24 14:31 Completed Troponin I Q3H Lab 08/20/24 17:59 Completed Troponin I Q3H Lab 08/20/24 20:55 Completed UA [Urinalysis and Microscopic] Stat Lab 08/20/24 16:15 Completed Medical Decision Narrative: 79-year-old male presents the emergency department with hypotension, differential diagnose include but not limited to acute dehydration, volume depletion, cardiac tamponade, PE, CHF exacerbation, pulmonary edema, electrolyte disturbance, cardiac arrhythmia, small bowel obstruction. I discussed this patient's case with the attending physician, Dr. Handy she saw and examined the patient as well and performed bedside ultrasound myself. Will obtain basic laboratory studies, magnesium level proBNP, troponin, EKG, will obtain basic laboratory studies, magnesium level proBNP, troponin, EKG, will perform [id number] ultrasound, will obtain chest x-ray, CTA chest without contrast CT abdomen pelvis with and without contrast and will give 500 mL IV NS, urinalysis CBC is notable for thrombocytopenia 114 otherwise unremarkable CMP is notable for acute kidney injury with creatinine 1.8, BUN is 58 which is elevated, GFR 37. I reviewed the patient's EKG, sinus rhythm with occasional PVCs, with a right bundle branch block that appears chronic, 75 bpm IA interval within normal limits, QT interval within normal limits there is no STEMI. proBNP is elevated at 2310. Which is decreased from admission/prior ED visit. Urinalysis unremarkable. I reviewed the patient's CT abdomen pelvis with contrast along with the corresponding radiologic report gallstone in the gallbladder with mild wall thickening, cholecystitis is not excluded, nuclear medicine hepatobiliary scan is recommended. There is a mass in the right kidney consistent with renal neoplasm likely renal cell carcinoma mass in the left kidney may represent a renal neoplasm. Urinalysis unremarkable. I reviewed the patient's CTA chest along with the corresponding radiologic report, no evidence of pulmonary embolism there is diffuse cardiomegaly present in the thoracic aorta is unopacified which cannot be evaluated for dissection. Additional dose of IV 500 mL NS Discussed the patient's case with transfer physician Dr. Landin at 8:30 PM unfortunately [facility] is on a surgical divert and denied this transfer at this time he recommends outpatient follow-up at this time. Unfortunately, [facility] placed and are both on a wait list as well. Will place patient on waitlist to [facility]. I discussed the patient's case with Dr. Blevins the attending physician at shift change disposition will depend on waitlist status at [facility] pending callbacks. After calling numerous institutions, patient graciously excepted to [place] in [place] for CHANG, hypotension, new renal masses. Because patient high risk for clinical decompensation if discharged, deemed appropriate for transfer and inpatient admission. Results were relayed to patient who voiced understanding and patient was agreeable to transfer, inpatient admission, and management. Patient was graciously accepted and transferred to [place] for further definitive management, under Dr. Sumner. Procedures <Alexia Handy DO - Last Filed: 08/21/24 07:28> Limited Ultrasound Findings:: Limited cardiac ultrasound Indication: Hypotension Identified cardiac views: [-Cardiac parasternal long axis] [-Cardiac parasternal short axis] [-Cardiac apical four-chamber] [-Cardiac subxiphoid] Findings: [-Cardiac activity present -Gross wall motion abnormal, globally reduced -Pericardial effusion absent -Right heart strain absent] Impression: -[From above] Images were saved to permanent archive The study was technically adequate CPT: 96527 This study was performed by me, and I personally interpreted all images/videos. Based on my clinical judgement, these images were adequate and did not necessitate further imaging. Critical Care <DULCE MARIA Orellana - Last Filed: 08/20/24 21:01> Critical Care Time Critical Care Time: No
[2024-08-20 14:57] LABS: Potassium 4.6 mmoL/L (3.5-5.1)
[2024-08-20 14:59] LABS: Albumin/Globulin Ratio 1.7 (1.1-1.8); Anion Gap 11.6 mEq/L (5-15); Blood Urea Nitrogen 51 mg/dl (9-20); Carbon Dioxide 29 mmol/L (22.0-30.0); Creatinine Clearance Estimated 34 mL/min (50-200); Estimated Glomerular Filt Rate 37 ml/min (>60); GFR (African American) 44 ML/MIN (>60); Globulin 2.5 g/dL (1.3-3.2); Total Protein,Serum 6.7 g/dl (6.3-8.2)
[2024-08-20 15:00] LABS: Alanine Aminotransferase 20 U/L (12-78); Alkaline Phosphatase 81 U/L (38-126); Aspartate Amino Transferase 39 U/L (17-59); Bilirubin,Total 1.1 mg/dl (0.2-1.3); Calcium 10.3 mg/dl (8.4-10.2); Glucose 100 mg/dl (74-100); Magnesium 2.2 mg/dl (1.6-2.3)
[2024-08-20] MEDS: 0.9 % SODIUM CHLORIDE 1000ML 1,000 ML 500 ML IV ×2 (15:02→19:55)
--- NOTE | 2024-08-20 15:04 | CT_ITS ---
FINAL REPORT TECHNIQUE: Then section axial CT images of the chest were obtained with contrast. Three-D reformatted images were also obtained.This study was performed with techniques to keep radiation doses as low as reasonably achievable (ALARA). Individualized dose reduction techniques using automated exposure control or adjustment of mA and/or kV according to the patient's size were employed. CLINICAL HISTORY: Hypotension, history of HFrEF COMPARISON: None FINDINGS: Diffuse cardiomegaly is present. There is no evidence of pulmonary embolism. The thoracic aorta is unopacified, and cannot be evaluated for thoracic dissection. The patient has undergone a prior midline sternotomy. There is no evidence of mediastinal or hilar mass or adenopathy. There is no evidence of pulmonary mass or suspicious nodule. Mild bibasilar atelectasis is present. There is degenerative change present in the thoracic spine. IMPRESSION: No evidence of pulmonary embolism. Diffuse cardiomegaly is present, and the thoracic aorta is unopacified and cannot be evaluated for dissection. Reviewed, Interpreted and Dictated by David Valerio III, MD Transcribed by Rhonda Metcalf Authenticated and [facility]
--- NOTE | 2024-08-20 15:04 | CT_ITS ---
FINAL REPORT CLINICAL HISTORY: Hypotension, history of HFrEF COMPARISON: 07/23/2024 FINDINGS: CT OF THE ABDOMEN AND PELVIS WITH CONTRAST Axial CT images of the abdomen and pelvis were obtained after the administration of oral and iv contrast. Coronal reformatted images were also obtained and reviewed.This study was performed with techniques to keep radiation doses as low as reasonably achievable (ALARA). Individualized dose reduction techniques using automated exposure control or adjustment of mA and/or kV according to the patient's size were employed. Abdomen: There is mild scarring in the lung bases. The liver is normal in size and attenuation. Multiple gallstones are seen in the gallbladder with mild gallbladder wall thickening. Cholecystitis is not excluded. There is no biliary ductal dilatation. The spleen is unremarkable. No adrenal mass is present. The pancreas has an unremarkable appearance. There are several small bilateral renal masses which cannot be further characterized secondary to small size. Many are felt to represent cysts. There is a contrast-enhancing mass in the anterior right kidney measuring 17 mm which is consistent with renal neoplasm, likely renal cell carcinoma. There is also a mass in the posterior left kidney measuring 8 mm which does not appear to be a simple cyst. A renal neoplasm is not excluded. The aorta is normal in caliber. There are diffuse Vascular calcifications. There is no free fluid or adenopathy. Pelvis: The appendix is not well-visualized. The prostate is diffusely enlarged measuring up to 6.6 cm in transverse dimension. The urinary bladder is unremarkable. There is no evidence of mass or adenopathy. There is no evidence of bowel obstruction. There is a small right inguinal hernia containing fat. A stable sclerotic focus in the left sacral ala is nonspecific. IMPRESSION: Gallstones in the gallbladder with mild wall thickening. Cholecystitis is not excluded. Nuclear medicine hepatobiliary scan is recommended for further evaluation. Mass in the right kidney is consistent with a renal neoplasm, likely renal cell carcinoma. Mass in the left kidney may represent a renal neoplasm. Reviewed, Interpreted and Dictated by David Valerio III, MD Transcribed by Fany Pillai Authenticated and [facility]
[2024-08-20 15:10] LABS: NT Pro Brain Natriuretic Pep. 2310 pg/mL (0-450)
[2024-08-20 15:12] LABS: Troponin I 0.03 ng/ml (0.00-0.034)
[2024-08-20] MEDS: 0.9 % SODIUM CHLORIDE 50 ML VIAL IV (15:28)
[2024-08-20] MEDS: IOPAMIDOL-370 (76%);100ML BOTTLE 75 ML IV (15:29)
[2024-08-20] MEDS: SODIUM CHLORIDE 0.9% 10ML SYR (RAD ONLY) 10 ML IV (15:29)
[2024-08-20 16:20] LABS: Microscopic, Urine URINE MICROSCOPIC (MICROSCOPIC)
[2024-08-20 16:22] LABS: Appearance,Urine CLEAR (Clear); Bilirubin,Urine Negative (Negative); Blood, Urine Negative (Negative); Color,Urine YELLOW (Yellow); Glucose,Urine (UA) 1+ (Negative); Ketones,Urine Negative (Negative); Leukocyte Esterase,Urine Negative (Negative); Nitrate,Urine Negative (Negative); Protein,Urine Negative (Negative); Urobilinogen,Urine 0.2 EU/dl (0.2)
[2024-08-20 17:44] LABS: Squamous Epithelial Cell,Urine Occasional #/hpf (0-5)
[2024-08-20 19:05] LABS: Troponin I 0.02 ng/ml (0.00-0.034)
--- NOTE | 2024-08-20 20:10 | PC.NURSE ---
Called [facility] at 20:11 will give a call back shortly
[2024-08-20 21:25] LABS: Troponin I 0.02 ng/ml (0.00-0.034)
--- NOTE | 2024-08-20 21:39 | PC.NURSE ---
Dr. Nieves from [facility] refused and said patient needs to go to [facility].
== END 2024-08-20 22:32 | disposition short-term general hospital (02) ==
PROVIDERS: Emergency Medicine; Emergency Provider Emergency Medicine; PCP Internal Medicine
DX: N17.9 Acute kidney failure, unspecified (principal); N28.89 Other specified disorders of kidney and ureter; I95.9 Hypotension, unspecified
CPT/HCPCS: 71045; 71275; 74177; 80053; 81001; 83735; 83880; 84484; 85025; 93005; 96360; 96361; 99285; J7030; Q9967

== ENCOUNTER 2024-08-25 14:10 | Emergency (ER) | payer MEDICARE, SELFPAY ==
[2024-08-25 14:11] VITALS: BP 145/86; PULSE 81; RESP 18; TEMP 36.9; O2SAT 96; BMI 26.9
[2024-08-25 14:30] VITALS: BP 134/89; PULSE 94; O2SAT 93
--- NOTE | 2024-08-25 14:31 | ED_ITS ---
<Statement entered by Alexia Handy DO - 08/25/24 23:33> I was consulted by the JOSÉ MIGUEL, and we discussed the complexity of the problems being addressed. I approved the treatment and management plan for this patient's care in the emergency department, thus performing a substantive portion of the medical decision making. Alexia Handy DO Discharge Plan Disposition Patient Disposition: Home, Self-Care Condition: Good Prescriptions Prescriptions: New ondansetron 4 mg tablet,disintegrating 4 mg PO QID PRN (Reason: nausea and vomiting) Qty: 10 0RF No Action thiamine HCl (vitamin B1) 100 mg tablet 100 mg PO DAILY Qty: 90 1RF cholecalciferol (vitamin D3) 25 mcg (1,000 unit) capsule 25 mcg PO DAILY lzghghkh-fkha-kbjbe-oreg-capry 100 mg-150 mg- 50 mg-150 mg capsule 1 cap PO DAILY metoprolol succinate [Toprol XL] 50 mg tablet extended release 24 hr 50 mg PO DAILY 30 Days Qty: 30 0RF spironolactone 25 mg tablet 25 mg PO DAILY 30 Days Qty: 30 0RF furosemide 40 mg tablet 40 mg PO DAILY 30 Days Qty: 30 0RF Jardiance 10 mg tablet 10 mg PO DAILY 30 Days Qty: 30 0RF tamsulosin 0.4 mg capsule 0.4 mg PO HS allopurinol 300 mg tablet 300 mg PO DAILY atorvastatin 20 mg tablet 20 mg PO DAILY ascorbic acid (vitamin C) 1,000 mg capsule 1,000 mg PO DAILY aspirin 81 mg tablet,delayed release (DR/EC) 81 mg PO DAILY Entresto 24-26 mg Tablet 1 tab PO BID 30 Days Qty: 60 0RF Eliquis 5 mg Tablet 5 mg PO BID 30 Days Qty: 60 0RF Referrals Follow up/Referrals: David Leigh MD [Staff Physician] - See instructions Marcelo Lara DO [Primary Care Provider] - See instructions Activity Restrictions/Add. Instructions Additional Instructions/Restrictions: I have referred you to the general surgeon to evaluate your gallbladder further. Please follow-up with your PCP within 48 hours. If your symptoms do not improve or worsen or change return to the ER as needed. Clinical Impressions Clinical Impression: Abdominal pain Qualifiers: Abdominal location: generalized Qualified Code(s): R10.84 - Generalized abdominal pain Print Language Print Language: Burmese Discharge ED Provider: Alexia Handy General Adult HPI General Chief complaint: Nausea/Vomiting/Diarrhea Stated complaint: back pain, vomiting Time Seen by Provider: 08/25/24 14:30 Mode of Arrival: Ambulatory Source of Information: Spouse Limitations: dementia Description of Symptoms (Recalled from ER Triage Doc. by RN): pt vomited one time this morning. was in the hospital for an CHANG last week History of Present Illness HPI narrative: Patient presents for evaluation of nausea vomiting diarrhea and vomiting. Patient was recently admitted to [facility] for CHANG but was transferred from [facility] for renal masses seen during his workup. Patient was evaluated and his kidney function normalized during his stay there was also seen by urology who plans to see the patient on an outpatient basis. At baseline patient has dementia and given that he is a difficult and poor historian. He denies any fever chills hemoptysis hematochezia melena. Related Data Home Medications ?Medication ?Instructions ?Recorded ?Confirmed cholecalciferol (vitamin D3) 25 25 mcg PO DAILY 11/28/22 08/06/24 mcg (1,000 unit) capsule turmeric 100 mg-arely 150 1 cap PO DAILY 11/28/22 08/06/24 mg-olive 50 mg-oreg 150 mg-capryl capsule allopurinol 300 mg tablet 300 mg PO DAILY 07/23/24 08/06/24 atorvastatin 20 mg tablet 20 mg PO DAILY 07/23/24 08/06/24 tamsulosin 0.4 mg capsule 0.4 mg PO HS 07/23/24 08/06/24 ascorbic acid (vitamin C) 1,000 mg 1,000 mg PO DAILY 07/24/24 08/06/24 capsule aspirin 81 mg tablet,delayed 81 mg PO DAILY 07/24/24 08/06/24 release Previous Rx's ?Medication ?Instructions ?Recorded thiamine HCl (vitamin B1) 100 mg 100 mg PO DAILY #90 tabs 08/08/22 tablet apixaban 5 mg tablet (Eliquis) 5 mg PO BID 30 days #60 tabs 07/25/24 sacubitril 24 mg-valsartan 26 mg 1 tab PO BID 30 days #60 tabs 07/25/24 tablet (Entresto) empagliflozin 10 mg tablet 10 mg PO DAILY 30 days #30 tabs 08/23/24 (Jardiance) furosemide 40 mg tablet 40 mg PO DAILY 30 days #30 tabs 08/23/24 metoprolol succinate 50 mg 50 mg PO DAILY 30 days #30 tabs 08/23/24 tablet,extended release 24 hr (Toprol XL) spironolactone 25 mg tablet 25 mg PO DAILY 30 days #30 tabs 08/23/24 ondansetron 4 mg disintegrating 4 mg PO QID PRN nausea and 08/25/24 tablet vomiting #10 tabs Allergies Allergy/AdvReac Type Severity Reaction Status Date / Time No Known Allergies Allergy Verified 08/20/24 14:51 [facility] Disclaimer: The information contained in this section may have been updated after the patient was seen, as this information can be updated by other users. Medical History Biventricular heart failure Tobacco use Alcohol use Dementia Elevated troponin I level Pulmonary edema Atrial fibrillation Bilateral pleural effusion Acute hypoxemic respiratory failure Hyperlipidemia History of sleep apnea CAD (coronary artery disease) Acute HFrEF (heart failure with reduced ejection fraction) Gout High cholesterol Hypertension Surgical History History of open heart surgery Hx of heart artery stent Family History Other Coronary artery disease Hypertension Social History Smoking Status: Never smoker alcohol intake: current alcohol intake frequency: a few times a week substance use type: denies use current occupational status: retired Travel in the last 8 weeks: None household members: spouse housing: house marital status: Other Medical History Have you received the Flu Vaccine for this season: No Have you received the Pneumonia Vaccine: No ROS Obtained: Yes Systems reviewed as appropriate & no additional complaints except as documented Physical Exam General General appearance: alert and in no apparent distress Respiratory Respiratory exam: Present normal lung sounds bilaterally Cardiovascular Cardiovascular exam: Present regular rate Neurological Exam Neurological exam: Present alert and oriented X3 Medical Decision Making Medical Records Medical records reviewed: Yes I reviewed the patient's medical records. Screening: Per USPSTF and CDC recommendations, given the prevalence of disease in our region, it is our hospital?s policy to screen for HIV and viral Hepatitis for all patients aged 18 and over and those with ongoing risk factors. [place] Inquiry Pt receiving controlled substance: No Vital Signs: 08/25/24 14:11 08/25/24 14:30 08/25/24 15:00 Temperature 98.4 F Temperature Source Oral Pulse Rate 94 H 48 L Pulse Rate [Right] 81 Respiratory Rate 18 Blood Pressure 134/89 137/115 H Blood Pressure [Right Arm] 145/86 H Blood Pressure Mean 113 118 Blood Pressure Mean [Right Arm] 105 Blood Pressure Source Blood Pressure Position 02 Sat by Pulse Oximetry 96 93 L 93 L Oxygen Delivery Method 08/25/24 16:00 08/25/24 16:30 08/25/24 17:07 Temperature 98.0 F Temperature Source Oral Pulse Rate 86 102 H 94 H Pulse Rate [Right] Respiratory Rate 18 Blood Pressure 128/80 132/91 H 139/97 H Blood Pressure [Right Arm] Blood Pressure Mean 98 Blood Pressure Mean [Right Arm] Blood Pressure Source Automatic Cuff Blood Pressure Position Sitting 02 Sat by Pulse Oximetry 94 L 91 L Oxygen Delivery Method Room Air Lab Data Lab results reviewed: Yes I reviewed the patient's lab results. Lab Results 08/25/24 14:20: WBC 6.7, RBC 5.49, Hgb 16.6, Hct 52.2 H, MCV 95.1 H, MCH 30.3, MCHC 31.9, RDW 15.5, Plt Count 95 L, MPV 9.7, Neut % (Auto) 80.9 H, Lymph % (Auto) 13.5, [place] % (Auto) 4.6, Eos % (Auto) 0.5, Baso % (Auto) 0.5, Neut # (Auto) 5.4, Lymph # (Auto) 0.9, [place] # (Auto) 0.3, Eos # (Auto) 0.0, Baso # (Auto) 0.0, Sodium 139, Potassium 4.3, Chloride 107, Carbon Dioxide 26, Anion Gap 10.3, BUN 27 H, Creatinine 1.30 H, Estimated Creat Clear 47, Estimated GFR 53 L, Est GFR ( Amer) 65, Glucose 136 H, Calcium 10.0, Magnesium 2.0, T otal Bilirubin 1.4 H, AST 39, ALT 22, Alkaline Phosphatase 87, Total Protein 6.5, Albumin 4.0, Globulin 2.5, Albumin/Globulin Ratio 1.6, Lipase 201 12/15/24 16:47: Urine Color Yellow, Urine Appearance Clear, Urine pH 6.0, Ur Specific [place] 1.015, Urine Protein Negative, Urine Glucose (UA) 3+, Urine Ketones Trace, Urine Blood Negative, Urine Nitrate Negative, Urine Bilirubin Negative, Urine Urobilinogen 0.2, Ur Leukocyte Esterase Negative, Urine RBC None, Urine WBC Occasional, Ur Squamous Epith Cells Occasional, Urine Bacteria Trace 08/25/24 14:20 08/25/24 14:20 Orders (Tests/Meds): ED MEDICATIONS Discontinued Medications Generic Name Dose Route Start Last Admin Trade Name Freq PRN Reason Stop Dose Admin Acetaminophen 1,000 mg 08/25/24 15:00 08/25/24 15:05 Acetaminophen 1,000mg/100ml Vial IV 08/25/24 15:01 1,000 mg ONCE ONE Administration Lactated Ringer's 500 mls @ 999 mls/hr 08/25/24 15:17 08/25/24 15:21 Lactated Ringer's 500ml IV 08/25/24 15:47 999 mls/hr .Q31M ONE Administration Iopamidol 75 ml 08/25/24 15:37 08/25/24 15:38 Iopamidol-370 (76%);100ml Bottle IV 08/25/24 15:38 75 ml ONCE ONE Administration Ondansetron HCl 4 mg 08/25/24 15:00 08/25/24 15:05 Ondansetron 4mg/2ml Vial IV 08/25/24 15:01 4 mg ONCE ONE Administration Sodium Chloride 10 ml 08/25/24 15:37 08/25/24 15:38 Sodium Chloride 0.9% 10ml Syr (Rad Only) IV 08/25/24 15:38 10 ml ONCE ONE Administration ORDERS Category Date Time Status CT abdomen pelvis w con Stat Cat Scan 08/25/24 15:00 Completed CBC w/Auto Diff [Complete Blood Count Auto Diff] Stat Lab 08/25/24 14:20 Completed CMP [Comprehensive Metabolic Panel] Stat Lab 08/25/24 14:20 Completed Lipase Stat Lab 08/25/24 14:20 Completed Magnesium Stat Lab 08/25/24 14:20 Completed UA [Urinalysis and Microscopic] Stat Lab 08/25/24 16:47 Completed Medical Decision Narrative: In summary patient is a 79-year-old male who presents to the emergency department for evaluation of abdominal pain and reported nausea vomiting and diarrhea.. Patient is hemodynamically stable upon arrival, afebrile. Physical exam is remarkable for a well-nourished well-developed 79-year-old gentleman who otherwise does not appear to be in acute distress. Breath sounds are clear and equal bilaterally to the bases. Patient has mild right upper quadrant tenderness to palpation with no rebound or guarding or rigidity. Bowel sounds normal active.. Differential diagnosis includes UTI versus kidney stone versus cholecystitis etc. Initial workup will be conducted with hematologic labs urinalysis CT scan abdomen pelvis. Initial interventions include Toradol Tylenol Zofran. Initial workup reviewed by me shows his kidney function is improved since previous visit and the remainder of his hematologic labs are nonactionable. My informal interpretation of CT scan abdomen pelvis shows a right renal mass and a complex left 1 that appears to be a cyst. Right was previously diagnosis possible renal cell carcinoma. I additionally note that his gallbladder is markedly distended with gallstones but the bladder wall is not thick and there is no pericholecystic fluid or stranding.. Upon repeat evaluation patient is able to tolerate oral intake without nausea or vomiting.. Given this patient is appropriate for discharge with referral to general surgery for further evaluation and reviewed for cholecystectomy and a prescription for Zofran sent to his pharmacy. Patient to follow-up within 48 hours with his PCP. Critical Care Critical Care Time Critical Care Time: No
[2024-08-25 15:00] VITALS: BP 137/115; PULSE 48; O2SAT 93
--- NOTE | 2024-08-25 15:00 | CT_ITS ---
PROCEDURE INFORMATION: Exam: CT Abdomen And Pelvis With Contrast Exam date and time: 08/25/2024 3:35 PM Age: 79 years old Clinical indication: Abdominal pain; Generalized; Additional info: Acute abdominal pain TECHNIQUE: Imaging protocol: Computed tomography of the abdomen and pelvis with contrast. Radiation optimization: All CT scans at this facility use at least one of these dose optimization techniques: automated exposure control; mA and/or kV adjustment per patient size (includes targeted exams where dose is matched to clinical indication); or iterative reconstruction. Contrast material: ISOVUE; Contrast volume: 75 ml; Contrast route: IV; COMPARISON: CT ABDOMEN PELVIS W CON 08/20/2024 3:11 PM FINDINGS: Lungs: Left basilar subsegmental atelectasis. Right lung base is clear. Liver: Liver is unremarkable. No mass or enlargement detected. Gallbladder and biliary ducts: Multiple gallstones otherwise gallbladder is unremarkable. Pancreas: Unremarkable. Main pancreatic duct is not significantly dilated. Spleen: Normal. No splenomegaly. Adrenal glands: Normal. No mass. Kidneys and ureters: Cortical cyst upper pole right kidney otherwise kidneys are unremarkable. Stomach and bowel: Unremarkable. No obstruction. No mucosal thickening. Appendix: No evidence of appendicitis. Intraperitoneal space: Unremarkable. No free air. No significant fluid collection. Vasculature: Scattered atherosclerotic changes of the abdominal aorta and iliac vessels. No aortic aneurysm. Lymph nodes: Unremarkable. No enlarged lymph nodes. Urinary bladder: Urinary bladder is unremarkable. Reproductive: Prostate gland is significantly enlarged with extends into the base of the urinary bladder. Bones/joints: Unremarkable. No acute fracture. Soft tissues: Mild anasarca within the soft tissues unchanged. IMPRESSION: 1. No acute findings within the abdomen or pelvis. 2. Cholelithiasis without evidence of acute cholecystitis. 3. Marked prostate enlargement.
[2024-08-25] MEDS: ACETAMINOPHEN 1,000MG/100ML VIAL 1000 MG IV (15:05)
[2024-08-25] MEDS: ONDANSETRON 4MG/2ML VIAL 4 MG IV (15:05)
[2024-08-25 15:11] LABS: Basophils % 0.5 % (0.1-2.0); Eosinophils % 0.5 % (0.1-12.0); Hematocrit 52.2 % (42.0-52.0); Hemoglobin 16.6 g/dL (14.1-18.0); Lymphocytes # 0.9 K/mm3 (0.7-4.5); Lymphocytes % 13.5 % (10-50); Mean Corpuscular HGB Conc 31.9 g/dL (31.8-35.4); Mean Corpuscular Hemoglobin 30.3 pg (27.0-31.2); Mean Corpuscular Volume 95.1 fl (80-94); Mean Platelet Volume 9.7 fl (7.4-10.4); Monocytes # 0.3 K/mm3 (0.1-1.0); Monocytes % 4.6 % (1.7-9.3); Neutrophils # 5.4 K/mm3 (1.8-7.8); Neutrophils % 80.9 % (37.0-80.0); Platelet Count 95 K/mm3 (142-424); Red Blood Count 5.49 M/mm3 (4.60-6.20); Red Cell Distribution Width 15.5 % (11.5-17.5); White Blood Count 6.7 K/mm3 (4.8-10.8)
[2024-08-25 15:18] LABS: Chloride 107 mmol/L (98-107); Potassium 4.3 mmoL/L (3.5-5.1); Sodium 139 mmol/L (136-145)
[2024-08-25 15:21] LABS: Alanine Aminotransferase 22 U/L (12-78); Albumin/Globulin Ratio 1.6 (1.1-1.8); Alkaline Phosphatase 87 U/L (38-126); Anion Gap 10.3 mEq/L (5-15); Aspartate Amino Transferase 39 U/L (17-59); Bilirubin,Total 1.4 mg/dl (0.2-1.3); Blood Urea Nitrogen 27 mg/dl (9-20); Carbon Dioxide 26 mmol/L (22.0-30.0); Creatinine Clearance Estimated 47 mL/min (50-200); Estimated Glomerular Filt Rate 53 ml/min (>60); GFR (African American) 65 ML/MIN (>60); Globulin 2.5 g/dL (1.3-3.2); Glucose 136 mg/dl (74-100); Lipase 201 U/L (23-300); Total Protein,Serum 6.5 g/dl (6.3-8.2)
[2024-08-25] MEDS: RINGERS SOLUTION,LACTATED 500 ML 999 ML IV (15:21)
[2024-08-25] MEDS: SODIUM CHLORIDE 0.9% 10ML SYR (RAD ONLY) 10 ML IV (15:38)
[2024-08-25] MEDS: IOPAMIDOL-370 (76%);100ML BOTTLE 75 ML IV (15:38)
--- NOTE | 2024-08-25 15:41 | PC.NURSE ---
PT RETURNED FROM RADIOLOGY
[2024-08-25 16:00] VITALS: BP 128/80; PULSE 86; O2SAT 94
[2024-08-25 16:30] VITALS: BP 132/91; PULSE 102; O2SAT 91
[2024-08-25 16:53] LABS: Microscopic, Urine URINE MICROSCOPIC (MICROSCOPIC)
[2024-08-25 16:56] LABS: Appearance,Urine CLEAR (Clear); Bilirubin,Urine Negative (Negative); Blood, Urine Negative (Negative); Color,Urine YELLOW (Yellow); Glucose,Urine (UA) 3+ (Negative); Ketones,Urine TRACE (Negative); Leukocyte Esterase,Urine Negative (Negative); Nitrate,Urine Negative (Negative); Protein,Urine Negative (Negative); Specific Gravity, Urine 1.015 (1.005-1.030); Urobilinogen,Urine 0.2 EU/dl (0.2)
[2024-08-25 17:07] VITALS: BP 139/97; PULSE 94; RESP 18; TEMP 36.7; O2SAT 97
[2024-08-25 17:11] LABS: WBC,Urine Occasional #/hpf (0-3)
[2024-08-25 17:12] LABS: Bacteria,Urine Trace /lpf; Squamous Epithelial Cell,Urine Occasional #/hpf (0-5)
== END 2024-08-25 17:14 | disposition home or self-care (01) ==
PROVIDERS: Physician Assistant; Emergency Provider Emergency Medicine; PCP Internal Medicine
DX: R10.84 Generalized abdominal pain (principal); R11.2 Nausea with vomiting, unspecified; R19.7 Diarrhea, unspecified; R10.9 Unspecified abdominal pain
CPT/HCPCS: 74177; 80053; 81001; 83690; 83735; 85025; 96361; 96374; 96375; 99285; J0131; J2405; J7120; Q9967

== ENCOUNTER 2024-08-29 11:21 | Emergency (ER) | payer MEDICARE, SELFPAY ==
[2024-08-29] VITALS (18 sets, daily range): BP systolic 71–105; BP diastolic 52–70; PULSE 64–125; RESP 16–25; TEMP 36.5–36.6; O2SAT 80–98; BMI 25.7
--- NOTE | 2024-08-29 11:39 | ECG_ITS ---
APPROVED REPORT Exam: Resting ECG HR:122 bpm ECG Measurements Heart Rate 122 AXES QRSd 155 QRS 269 QT 373 T 76 QTc 446 Conclusion ATRIAL FLUTTER/TACHYCARDIA WITH RAPID VENTRICULAR RESPONSE RIGHT AXIS DEVIATION [QRS AXIS > 100] RIGHT BUNDLE BRANCH BLOCK [120+ ms QRS DURATION, UPRIGHT V1, 40+ ms S IN I/aVL/V4/V5/V6] POSSIBLE ANTERIOR MYOCARDIAL INFARCTION , OF INDETERMINATE AGE [30 ms Q WAVE IN V3/V4, OR R < 0.2 mV IN V4] Electronically signed by : CATIA DARNELL, 08/29/2024 16:48:20
--- NOTE | 2024-08-29 11:45 | PC.ADMIT ---
[email or web address] [facility] Admission Note: The patient,Perico Huntley,79 y/o, was given written information regarding hospital policies, unit procedures and contact persons. Patient's smoking status: Never smoker. Vital Signs - 8 hr 08/29/24 11:22 Temperature 97.7 F Pulse Rate [Left Radial] 87 Respiratory Rate 20 Blood Pressure [Right Arm] 95/67 L 02 Sat by Pulse Oximetry 92 L Oxygen Delivery Method Room Air
--- NOTE | 2024-08-29 12:13 | HMH.EDGENADL ---
Discharge Plan Disposition Patient Disposition: Xfer Short-Term Hosp Condition: Fair Prescriptions Prescriptions: No Action carvedilol 6.25 mg tablet 6.25 mg PO BID Patient Comments: TAKE 1 TABLET BY MOUTH TWICE DAILY. TAKE WITH FOOD thiamine HCl (vitamin B1) 100 mg tablet 100 mg PO DAILY Qty: 90 1RF cholecalciferol (vitamin D3) 25 mcg (1,000 unit) capsule 25 mcg PO DAILY kjhlrnqf-uism-jrhkp-oreg-capry 100 mg-150 mg- 50 mg-150 mg capsule 1 cap PO DAILY Jardiance 10 mg tablet 10 mg PO DAILY 30 Days Qty: 30 0RF metoprolol succinate [Toprol XL] 50 mg tablet extended release 24 hr 50 mg PO DAILY 30 Days Qty: 30 0RF spironolactone 25 mg tablet 25 mg PO DAILY 30 Days Qty: 30 0RF furosemide 40 mg tablet 40 mg PO DAILY 30 Days Qty: 30 0RF tamsulosin 0.4 mg capsule 0.4 mg PO HS allopurinol 300 mg tablet 300 mg PO DAILY atorvastatin 20 mg tablet 20 mg PO DAILY ascorbic acid (vitamin C) 1,000 mg capsule 1,000 mg PO DAILY aspirin 81 mg tablet,delayed release (DR/EC) 81 mg PO DAILY sacubitril-valsartan [Entresto] 24-26 mg Tablet 1 tab PO BID 30 Days Qty: 60 0RF Eliquis 5 mg Tablet 5 mg PO BID 30 Days Qty: 60 0RF ondansetron 4 mg tablet,disintegrating 4 mg PO QIDP PRN (Reason: nausea and vomiting) Referrals Follow up/Referrals: Marcelo Lara DO [Primary Care Provider] - See instructions Clinical Impressions Clinical Impression: Cholecystitis, Septic shock, CHF (congestive heart failure), Pneumonia, Hyperbilirubinemia, CKD (chronic kidney disease) Stand Alone Forms Stand Alone Forms: Transfer Record - ED Print Language Print Language: [place]i Discharge ED Provider: Alexia Handy General Adult HPI General Chief complaint: Weakness Stated complaint: Low BP, not acting right Time Seen by Provider: 08/29/24 11:42 Mode of Arrival: Wheelchair Source of Information: Patient Limitations: No Limitations Description of Symptoms (Recalled from ER Triage Doc. by RN): pt has been here several times for bp issues and back, abd pain. today patient is here for weakness and low bp History of Present Illness HPI narrative: This patient is a 79-year-old male with a history of dementia, atrial fibrillation, CAD, CKD, bilateral renal masses, and gallstone presenting to the emergency department for evaluation with concern for lethargy and low blood pressure readings at home. reports that he is had multiple recent medication changes and she has been giving her the medications that she was told to give him, which she is not sure what they are. Nothing else out of the ordinary recently noted by his . She states that today, he has been sleeping a lot and has about himself. She checked his blood pressure and noted it was very low, prompting her to bring him in. Patient has had multiple recent ED evaluations, especially for abdominal pain and CHANG. He is been transferred to [place]. For CHANG with bilateral renal masses noted he also was found of a gallstone for which he followed up with general surgery 2 days ago. General surgery felt that at that time he did not have acute cholecystitis but is high risk, so they recommended if he does develop cholecystitis that he be transferred to higher level of care as he is a very poor surgical candidate and needs multidisciplinary care. Patient history is limited given his baseline dementia, but he denies any concerns or complaints to me at this time. Related Data Home Medications ?Medication ?Instructions ?Recorded ?Confirmed cholecalciferol (vitamin D3) 25 25 mcg PO DAILY 11/28/22 08/29/24 mcg (1,000 unit) capsule turmeric 100 mg-arely 150 1 cap PO DAILY 11/28/22 08/29/24 mg-olive 50 mg-oreg 150 mg-capryl capsule allopurinol 300 mg tablet 300 mg PO DAILY 07/23/24 08/29/24 atorvastatin 20 mg tablet 20 mg PO DAILY 07/23/24 08/29/24 tamsulosin 0.4 mg capsule 0.4 mg PO HS 07/23/24 08/29/24 ascorbic acid (vitamin C) 1,000 mg 1,000 mg PO DAILY 07/24/24 08/29/24 capsule aspirin 81 mg tablet,delayed 81 mg PO DAILY 07/24/24 08/29/24 release carvedilol 6.25 mg tablet 6.25 mg PO BID 08/27/24 08/29/24 ondansetron 4 mg disintegrating 4 mg PO QIDP PRN nausea and 08/29/24 08/29/24 tablet vomiting Previous Rx's ?Medication ?Instructions ?Recorded thiamine HCl (vitamin B1) 100 mg 100 mg PO DAILY #90 tabs 08/08/22 tablet apixaban 5 mg tablet (Eliquis) 5 mg PO BID 30 days #60 tabs 07/25/24 sacubitril 24 mg-valsartan 26 mg 1 tab PO BID 30 days #60 tabs 07/25/24 tablet (Entresto) empagliflozin 10 mg tablet 10 mg PO DAILY 30 days #30 tabs 08/28/24 (Jardiance) furosemide 40 mg tablet 40 mg PO DAILY 30 days #30 tabs 08/28/24 metoprolol succinate 50 mg 50 mg PO DAILY 30 days #30 tabs 08/28/24 tablet,extended release 24 hr (Toprol XL) spironolactone 25 mg tablet 25 mg PO DAILY 30 days #30 tabs 08/28/24 Allergies Allergy/AdvReac Type Severity Reaction Status Date / Time No Known Allergies Allergy Verified 08/27/24 09:15 [facility] Disclaimer: The information contained in this section may have been updated after the patient was seen, as this information can be updated by other users. Medical History Skin lesion of face Encephalopathy Biventricular heart failure Tobacco use Alcohol use Dementia Elevated troponin I level Pulmonary edema Atrial fibrillation Bilateral pleural effusion Acute hypoxemic respiratory failure Hyperlipidemia History of sleep apnea CAD (coronary artery disease) Acute HFrEF (heart failure with reduced ejection fraction) Gout High cholesterol Hypertension Surgical History History of open heart surgery Hx of heart artery stent Family History Other Coronary artery disease Hypertension Social History Smoking Status: Never smoker alcohol intake: current alcohol intake frequency: a few times a week substance use type: denies use current occupational status: retired Travel in the last 8 weeks: None household members: spouse housing: house marital status: Have you lived/traveled outside US in past 30 days?: No Contact w/someone who lives/traveled outside US past 30 days?: No Exposure to someone with infectious disease in past 14 days?: No Do you have a fever (greater than 100.4 F or 38 C)?: No Have you tested positive for COVID-19: No Exposed to someone with COVID-19 in past 14 days?: No Do you have a sore throat?: No Do you have a cough?: No Do you have any weakness?: No Do you have any diarrhea?: No Are you experiencing any unusual bleeding?: No Do you have any muscle aches/pain?: No Do you have any abdominal pain?: No Are you experiencing loss of taste or smell?: No Other Medical History Have you received the Flu Vaccine for this season: No Have you received the Pneumonia Vaccine: No ROS Obtained: Yes All systems reviewed & no additional complaints except as documented Physical Exam General General appearance: alert Comment: Ill-appearing, tachycardic, hypotensive Head Head exam: atraumatic and normocephalic Eye Eye exam: Present normal appearance, PERRL and EOMI ENT ENT exam: Present mucous membranes dry and normal external ear exam Neck Neck exam: Present normal inspection, full ROM and trachea midline; Absent tenderness Chest Chest inspection: Present normal inspection and symmetric chest wall rise; Absent tenderness Respiratory Respiratory exam: Present normal lung sounds bilaterally; Absent respiratory distress, wheezes, stridor or accessory muscle use Cardiovascular Cardiovascular exam: Present regular rate and normal rhythm Abdominal Exam Abdominal exam: Present soft and tenderness (Right upper quadrant); Absent distention, guarding, rebound or rigidity Extremities Exam Extremities exam: Present normal inspection, full ROM and normal capillary refill; Absent tenderness or edema Back Exam Back exam: Present normal inspection and full ROM; Absent tenderness Neurological Exam Neurological exam: Present alert, CN II-XII intact and other (Generally weak without focal deficits); Absent oriented X3 or motor sensory deficit Psychiatric Psychiatric exam: Present normal affect and normal mood Skin Skin exam: Present warm, dry and pallor Medical Decision Making Medical Records Medical records reviewed: Yes I reviewed the patient's medical records. Screening: Per USPSTF and CDC recommendations, given the prevalence of disease in our region, it is our hospital?s policy to screen for HIV and viral Hepatitis for all patients aged 18 and over and those with ongoing risk factors. [place] Inquiry Pt receiving controlled substance: No Vital Signs: 08/29/24 11:22 08/29/24 12:00 08/29/24 12:08 Temperature 97.7 F Temperature Source Oral Pulse Rate 123 H 122 H Pulse Rate [Left Radial] 87 Respiratory Rate 20 23 25 H Blood Pressure 71/52 L 77/57 L Blood Pressure [Right Arm] 95/67 L Blood Pressure Mean 58 Blood Pressure Mean [Right Arm] 76 02 Sat by Pulse Oximetry 92 L 96 97 Oxygen Delivery Method Room Air Room Air Oxygen Flow Rate (LPM) 08/29/24 12:09 08/29/24 12:30 08/29/24 12:55 Temperature Temperature Source Pulse Rate 125 H 122 H 102 H Pulse Rate [Left Radial] Respiratory Rate 18 23 25 H Blood Pressure 85/58 L 78/57 L 92/65 L Blood Pressure [Right Arm] Blood Pressure Mean Blood Pressure Mean [Right Arm] 02 Sat by Pulse Oximetry 96 94 L 80 L Oxygen Delivery Method Room Air Room Air Room Air Oxygen Flow Rate (LPM) 08/29/24 13:00 08/29/24 13:30 08/29/24 14:33 Temperature Temperature Source Pulse Rate 107 H 64 67 Pulse Rate [Left Radial] Respiratory Rate 20 23 20 Blood Pressure 81/53 L 95/59 L Blood Pressure [Right Arm] Blood Pressure Mean Blood Pressure Mean [Right Arm] 02 Sat by Pulse Oximetry 97 95 95 Oxygen Delivery Method Room Air Nasal Cannula Nasal Cannula Oxygen Flow Rate (LPM) 2 2 08/29/24 15:00 08/29/24 15:30 Temperature Temperature Source Pulse Rate 108 H Pulse Rate [Left Radial] Respiratory Rate 18 20 Blood Pressure 105/56 L 94/62 L Blood Pressure [Right Arm] Blood Pressure Mean Blood Pressure Mean [Right Arm] 02 Sat by Pulse Oximetry 98 96 Oxygen Delivery Method Nasal Cannula Nasal Cannula Oxygen Flow Rate (LPM) 2 2 Lab Data Lab results reviewed: Yes I reviewed the patient's lab results. Lab Results 08/29/24 11:41: WBC 13.2 H, RBC 4.96, Hgb 15.1, Hct 44.0, MCV 88.7, MCH 30.4, MCHC 34.3, RDW 15.6, Plt Count 104 L, MPV 12.1 H, Neut % (Auto) 89.4 H, Lymph % (Auto) 2.0 L, [place] % (Auto) 7.3, Eos % (Auto) 0.0 L, Baso % (Auto) 0.2, Neut # (Auto) 11.8 H, Lymph # (Auto) 0.3 L, [place] # (Auto) 1.0, Eos # (Auto) 0.0, Baso # (Auto) 0.0, Total Counted 100, Neutrophils % (Manual) 88 H, Lymphocytes % (Manual) 5 L, Monocytes % (Manual) 7, Platelet Estimate Slight decrease, RBC Morphology Normal, Sodium 133 L, Potassium 4.1, Chloride 99, Carbon Dioxide 28, Anion Gap 10.1, BUN 39 H, Creatinine 1.50 H, Estimated Creat Clear 39, Estimated GFR 45 L, Est GFR ( Amer) 55 L, Glucose 139 H, Calcium 9.0, Phosphorus 2.6, Magnesium 1.9, Total Bilirubin 2.2 H, AST 86 H, ALT 53, Alkaline Phosphatase 96, Troponin I 0.04 H, C-Reactive Protein 204.5 H, NT-Pro-B Natriuret Pep 8750 H, Total Protein 5.7 L, Albumin 3.1 L, Globulin 2.6, Albumin/Globulin Ratio 1.2, Procalcitonin 1.12, TSH 2.72, Thyroxine (T4) 4.2 L 08/29/24 12:10: VBG pH 7.34, VBG pCO2 46.2, VBG pO2 50.2 H, VBG HCO3 24.5, VBG Total CO2 25.9, VBG O2 Saturation 83.1 H, VBG Base Excess -1.3, VBG Lactic Acid 2.5 H 08/29/24 13:29: Troponin I 0.04 H 08/29/24 13:34: Urine Color Dark yellow, Urine Appearance Clear, Urine pH 6.0, Ur Specific [place] 1.010, Urine Protein Negative, Urine Glucose (UA) 3+, Urine Ketones Negative, Urine Blood Negative, Urine Nitrate Negative, Urine Bilirubin Negative, Urine Urobilinogen 1.0, Ur Leukocyte Esterase Negative, Urine RBC None, Urine WBC 3-5, Ur Squamous Epith Cells Occasional, Urine Bacteria Trace 08/29/24 11:41 08/29/24 11:41 Orders (Tests/Meds): ED MEDICATIONS Discontinued Medications Generic Name Dose Route Start Last Admin Trade Name Freq PRN Reason Stop Dose Admin Lactated Ringer's 500 mls @ 999 mls/hr 08/29/24 12:12 08/29/24 12:20 Lactated Ringer's 500ml IV 08/29/24 12:42 999 mls/hr .Q31M ONE Administration Cefepime HCl 2 gm/ Sodium 100 mls @ 200 mls/hr 08/29/24 13:16 08/29/24 13:27 Chloride IV 08/29/24 13:45 200 mls/hr ONCE ONE Administration Vancomycin/PEG/NADA/Lysine/Water 1.25 gm in 250 mls @ 125 mls/hr 08/29/24 13:30 08/29/24 15:13 Vancomycin 1.25gm/250ml (Peg) Premix IV 08/29/24 15:29 125 mls/hr ONCE ONE Administration Metronidazole 500 mg in 100 mls @ 100 mls/hr 08/29/24 14:33 08/29/24 16:19 Flagyl 500mg/100ml Ivpb IV 08/29/24 15:32 100 mls/hr ONCE ONE Administration Iopamidol 70 ml 08/29/24 13:53 08/29/24 13:55 Iopamidol-370 (76%);100ml Bottle IV 08/29/24 13:54 70 ml ONCE ONE Administration Miscellaneous 1 each 08/29/24 13:30 Vancomycin Consult Request NOTAPPLIC 09/28/24 13:29 CONSULT PHARMACY ERIC Sodium Chloride 10 ml 08/29/24 13:53 08/29/24 13:55 Sodium Chloride 0.9% 10ml Syr (Rad Only) IV 08/29/24 13:54 10 ml ONCE ONE Administration Sodium Chloride 50 ml 08/29/24 13:53 08/29/24 13:55 0.9 % Sodium Chloride 50 Ml Vial IV 08/29/24 13:54 50 ml ONCE ONE Administration ORDERS Category Date Time Status CT abdomen pelvis w con Stat Cat Scan 08/29/24 13:[address] angio chest PE protocol Stat Cat Scan 08/29/24 13:40 Completed CXR --portable [XR chest portable] Stat Exams 08/29/24 12:14 Completed POCUS Point of Care (ER Only) Stat Exams 08/29/24 12:14 Completed US RUQ [US abdomen limited] Stat Exams 08/29/24 13:16 Completed BNP [NT Pro Brain Natriuretic Pep.] Stat Lab 08/29/24 11:41 Completed CBC w/Auto Diff [Complete Blood Count Auto Diff] Stat Lab 08/29/24 11:41 Completed CMP [Comprehensive Metabolic Panel] Stat Lab 08/29/24 11:41 Completed CRP [C-Reactive Protein] Stat Lab 08/29/24 11:41 Completed Lactic Acid Follow Up (RFLX 1) Stat Lab 08/29/24 16:21 Ordered MAG [Magnesium] Stat Lab 08/29/24 11:41 Completed PHOS [Phosphorous] Stat Lab 08/29/24 11:41 Completed Procalcitonin Stat Lab 08/29/24 11:41 Completed T4 (Thyroxine) Stat Lab 08/29/24 11:41 Completed TSH [Thyroid Stimulating Hormone] Stat Lab 08/29/24 11:41 Completed Trop I [Troponin I] Stat Lab 08/29/24 11:41 Completed Troponin I Q3H Lab 08/29/24 13:29 Completed Troponin I Q3H Lab 08/29/24 18:15 Ordered UA [Urinalysis and Microscopic] Stat Lab 08/29/24 13:34 Completed Blood Culture Stat Micro 08/29/24 12:22 Received Urine Culture Stat Micro 08/29/24 12:10 Received VBG [Venous Blood Gas] Stat RT 08/29/24 12:10 Completed ECG Data Tracing #1: I reviewed this ECG and interpreted as documented below: Atrial tachycardia. Baseline right bundle branch block. No acute STEMI. ECG initial impression date: 08/29/24 ECG initial impression time: 11:34 Tracing #2: I reviewed this ECG and interpreted as documented below: Atrial tachycardia with rapid ventricular response with a ventricular rate 104 bpm. Rate improved prior EKG. No acute STEMI. Baseline left axis deviation and bundle branch block. ECG initial impression date: 08/29/24 ECG initial impression time: 14:42 Medical Decision Narrative: In summary, this patient is a 79-year-old male presenting to the Emergency Department for evaluation of lethargy and low blood pressure reading at home. Differential diagnoses considered include but are not limited to sepsis, cardiogenic shock, dehydration, CHANG, medication adverse reaction. Ruling out the most morbid conditions drove assessment. It should be noted patient's history includes CHF, CKD, CAD, atrial fibrillation which are not at goal therapy. This complicates all aspects of care by increasing patient's risk for morbidity. I reviewed patient's past medical records and noted multiple recent ED evaluations for low blood pressure, abdominal pain, and general surgery evaluation for gallstones as detailed in HPI.. On exam, the patient is lying in bed. He is chronically ill-appearing. He arrives hypotensive and tachycardic with systolics in the 70s and heart rate in the 120s to 130s. Cardiopulmonary exam is reassuring. He has some abdominal tenderness but denies any significant pain. Workup included broad lab evaluation including infectious, cardiac, metabolic workup as well as CT scans of the chest, abdomen, and pelvis to look for potential infectious source. I performed bedside cardiac and IVC ultrasound and determined that the patient has decreased EF however he actually has a relatively flat IVC with inspiratory collapse, so I feel that he is likely volume down. He has dry mucous membranes on assessment. Given this, we will trial him with 500 cc of IV fluids to assess for improvement in vital signs. I also ordered right upper quadrant ultrasound given the patient's history of gallstones. I independently interpreted CT scans and right upper quadrant ultrasound prior to the radiologist read and noted for pneumonia and cholecystitis. Please see their read for final interpretation. Labs were obtained that demonstrated leukocytosis, new elevation in AST, new elevation in bilirubin, elevated BNP from prior. Creatinine is around his baseline. Initial troponin is mildly elevated but second troponin is stable with no significant increase. Inflammatory markers significantly elevated with CRP greater than 200. Ultimately this time, I feel patient likely has sepsis secondary to pneumonia and cholecystitis. I considered the severe sepsis/septic shock given hypotension upon arrival. Blood pressure did respond well to a liter bolus of IV fluids and is now normotensive and his tachycardia also significantly improved. Heart rate in the 90s now. I reviewed prior records and general surgery felt he would benefit from transfer to higher level of care in the setting of acute cholecystitis based on their evaluation, so I called [facility] where the patient has previously established for care. I had an interactive discussion with Dr. Boyle at [facility] who advised he would be happy to consult on the patient if the patient is excepted by the hospitalist. I then had an interactive discussion with the hospitalist REJI Pierre on behalf of Dr. Brewer. Patient was started on IV vancomycin, cefepime, Flagyl. EMS transfer was arranged. He was transported in stable condition. Procedures Limited Ultrasound Findings:: Limited cardiac ultrasound Indication: Hypotension Identified cardiac views: [-Cardiac parasternal long axis] [-Cardiac parasternal short axis] [-Cardiac apical four-chamber] Findings: [-Cardiac activity present -Gross wall motion abnormal -Pericardial effusion absent -Right heart strain absent] Impression: -[From above] -No right heart strain. Patient does have IVC collapsing with inspiration, so I feel he is likely volume down. He does have reduced EF in the setting of heart failure reduced ejection fraction Images were saved to permanent archive The study was technically adequate CPT: 51292 This study was performed by me, and I personally interpreted all images/videos. Based on my clinical judgement, these images were adequate and did not necessitate further imaging. Critical Care Critical Care Time Critical Care Time: Yes Attestation: On 08/29/24, the high probability of a clinically significant, sudden or life threatening deterioration of the following system(s) required my full and direct attention, intervention and personal management. The time I documented below is in addition to time spent performing reported procedures but includes the following listed in this critical care notation. Total Time Total Critical Care Time: 60
--- NOTE | 2024-08-29 12:14 | XR_ITS ---
FINAL REPORT CLINICAL HISTORY: undifferentiated shock COMPARISON: 08/20/2024 FINDINGS: No acute pulmonary opacity is present. There is no evidence of effusion or pneumothorax. The patient is status post CABG. Mediastinum is otherwise unremarkable. Heart size is normal. IMPRESSION: No acute abnormality. Reviewed, Interpreted and Dictated by Thor Jenkins MD Transcribed by Marta Alfred Authenticated and [facility]
[2024-08-29 12:20] LABS: Lactate Venous 2.5 mmol/L (0.4-2.0); VBG Base Excess -1.3 mmol/L (-2.4-2.3); VBG HCO3 24.5 mmol/L (23-30); VBG Oxygen Saturation 83.1 % (50-70); VBG PCO2 46.2 mmol/L (35-51); VBG PH 7.34 mmol/L (7.31-7.41); VBG PO2 50.2 mmol/L (28-40); VBG Total CO2 25.9 mmol/L (23-27)
[2024-08-29] MEDS: RINGERS SOLUTION,LACTATED 500 ML 999 ML IV (12:20)
[2024-08-29 12:28] LABS: Alanine Aminotransferase 53 U/L (12-78); Albumin Level 3.1 g/dl (3.5-5.0); Albumin/Globulin Ratio 1.2 (1.1-1.8); Alkaline Phosphatase 96 U/L (38-126); Anion Gap 10.1 mEq/L (5-15); Aspartate Amino Transferase 86 U/L (17-59); Bilirubin,Total 2.2 mg/dl (0.2-1.3); Blood Urea Nitrogen 39 mg/dl (9-20); Carbon Dioxide 28 mmol/L (22.0-30.0); Chloride 99 mmol/L (98-107); Creatinine Clearance Estimated 39 mL/min (50-200); Estimated Glomerular Filt Rate 45 ml/min (>60); GFR (African American) 55 ML/MIN (>60); Globulin 2.6 g/dL (1.3-3.2); Glucose 139 mg/dl (74-100); Magnesium 1.9 mg/dl (1.6-2.3); Phosphorous 2.6 mg/dl (2.5-4.5); Potassium 4.1 mmoL/L (3.5-5.1); Sodium 133 mmol/L (136-145); Total Protein,Serum 5.7 g/dl (6.3-8.2)
[2024-08-29 12:32] LABS: Hemoglobin 15.1 g/dL (14.1-18.0); Mean Corpuscular HGB Conc 34.3 g/dL (31.8-35.4); Mean Corpuscular Hemoglobin 30.4 pg (27.0-31.2); Mean Corpuscular Volume 88.7 fl (80-94); Red Blood Count 4.96 M/mm3 (4.60-6.20); White Blood Count 13.2 K/mm3 (4.8-10.8)
[2024-08-29 12:33] LABS: Basophils % 0.2 % (0.1-2.0); C-Reactive Protein 204.5 mg/L (0-4); Lymphocytes # 0.3 K/mm3 (0.7-4.5); Mean Platelet Volume 12.1 fl (7.4-10.4); Monocytes % 7.3 % (1.7-9.3); Neutrophils # 11.8 K/mm3 (1.8-7.8); Neutrophils % 89.4 % (37.0-80.0); Platelet Count 104 K/mm3 (142-424); Red Cell Distribution Width 15.6 % (11.5-17.5)
[2024-08-29 12:35] LABS: MANUAL DIFFERENTIAL MANUAL DIFFERENTIAL (MANUAL DIFF)
[2024-08-29 12:43] LABS: NT Pro Brain Natriuretic Pep. 8750 pg/mL (0-450); Troponin I 0.04 ng/ml (0.00-0.034)
[2024-08-29 12:48] LABS: Procalcitonin 1.12 ng/mL (0.0-2.0); T4 (Thyroxine) 4.2 ug/dl (5.53-11.0)
[2024-08-29 13:01] LABS: Thyroid Stimulating Hormone 2.72 uIU/mL (0.465-4.68)
--- NOTE | 2024-08-29 13:16 | US_ITS ---
FINAL REPORT TECHNIQUE: Multiple transverse and longitudinal images CLINICAL HISTORY: gallstone, new sepsis FINDINGS: There is cholelithiasis with extensive sludge. Gallbladder wall thickening with adjacent fluid/edema is noted measuring up to 5 mm. The gallbladder is distended up to 4 cm. There is no evidence of biliary ductal dilatation. Limited portions of the right liver are unremarkable. Limited portions of the right kidney are unremarkable. IMPRESSION: Findings suspicious for acute cholecystitis. Reviewed, Interpreted and Dictated by Thor Jenkins MD Transcribed by Marta Alfred Authenticated and [facility]
[2024-08-29 13:21] LABS: Lymphocytes % 5 % (10-50); Monocytes % 7 % (2-9); Neutrophils % 88 % (42-76); Total Cells Counted 100
[2024-08-29 13:22] LABS: Platelet Estimate Slight Decrease; RBC Morphology Normal
[2024-08-29] MEDS: CEFEPIME HCL 2 GM in 0.9 % SODIUM CHLORIDE 100 ML IV (13:27)
[2024-08-29 13:39] LABS: Microscopic, Urine URINE MICROSCOPIC (MICROSCOPIC)
--- NOTE | 2024-08-29 13:40 | CT_ITS ---
FINAL REPORT TECHNIQUE: Thin section axial CT with contrast with multiplanar reconstruction This study was performed with techniques to keep radiation doses as low as reasonably achievable, (ALARA). Individualized dose reduction techniques using automated exposure control or adjustment of mA and/or kV according to the patient''s size were employed. CLINICAL HISTORY: sepsis, unknown origin COMPARISON: 08/20/2024 FINDINGS: Pulmonary vessels enhance in normal fashion without evidence of embolism. Thoracic aorta shows no dissection or aneurysm. There are patchy densities within the bilateral lower lobes suspicious for pneumonia, new from the prior exam. There is a new tiny right pleural effusion. There is a tiny amount of loculated air within the pleural effusion which could be from thoracentesis or gas producing infection. There is no adenopathy or pericardial effusion. No mediastinal or hilar adenopathy is present. Limited images of the upper abdomen demonstrate cholelithiasis with gallbladder wall thickening suspicious for acute cholecystitis. IMPRESSION: Mild bibasilar pneumonia. Small right pleural effusion. However, there are air bubbles within the pleural effusion which could be due to gas producing infection unless the patient has undergone thoracentesis. Findings suspicious for acute cholecystitis. Reviewed, Interpreted and Dictated by Thor Jenkins MD Transcribed by Marta Alfred Authenticated and [facility]
--- NOTE | 2024-08-29 13:40 | CT_ITS ---
FINAL REPORT TECHNIQUE: IV contrast enhanced exam This study was performed with techniques to keep radiation doses as low as reasonably achievable, (ALARA). Individualized dose reduction techniques using automated exposure control or adjustment of mA and/or kV according to the patient''s size were employed. CLINICAL HISTORY: sepsis, unknown origin COMPARISON: 08/25/2024 FINDINGS: Abdomen: There is an upper pole right renal cyst. There is gallbladder wall thickening with surrounding stranding. This in combination with gallstones is suspicious for acute cholecystitis. No biliary obstruction is identified. Solid abdominal organs are otherwise unremarkable. No bowel obstruction is present. There is no free air. No fluid collection is seen. There is no adenopathy. Pelvis: The appendix is not identified. There is fecal impaction in the right colon. Severe prostate enlargement is identified. The bladder is mildly distended. There is a small right inguinal hernia containing fat. No bowel wall thickening is present. There is no free fluid. No pelvic mass is seen. IMPRESSION: Findings most suggestive of acute cholelithiasis without biliary obstruction. Severe prostate enlargement. Reviewed, Interpreted and Dictated by Thor Jenkins MD Transcribed by Gerri James Authenticated and [facility]
[2024-08-29 13:42] LABS: Appearance,Urine CLEAR (Clear); Bilirubin,Urine Negative (Negative); Blood, Urine Negative (Negative); Color,Urine DARK YELLOW (Yellow); Glucose,Urine (UA) 3+ (Negative); Ketones,Urine Negative (Negative); Leukocyte Esterase,Urine Negative (Negative); Nitrate,Urine Negative (Negative); Protein,Urine Negative (Negative)
[2024-08-29] MEDS: 0.9 % SODIUM CHLORIDE 50 ML VIAL IV (13:55)
[2024-08-29] MEDS: IOPAMIDOL-370 (76%);100ML BOTTLE 70 ML IV (13:55)
[2024-08-29] MEDS: SODIUM CHLORIDE 0.9% 10ML SYR (RAD ONLY) 10 ML IV (13:55)
[2024-08-29 14:02] LABS: Bacteria,Urine Trace /lpf; Squamous Epithelial Cell,Urine Occasional #/hpf (0-5)
[2024-08-29 14:03] LABS: Troponin I 0.04 ng/ml (0.00-0.034)
--- NOTE | 2024-08-29 14:39 | ECG_ITS ---
APPROVED REPORT Exam: Resting ECG HR:104 bpm ECG Measurements Heart Rate 104 AXES QRSd 178 QRS -50 QT 389 T 133 QTc 449 Conclusion ATRIAL FLUTTER/TACHYCARDIA WITH RAPID VENTRICULAR RESPONSE LEFT AXIS DEVIATION [QRS AXIS < -30] INTRAVENTRICULAR CONDUCTION DELAY [130+ ms QRS DURATION] POSSIBLE ANTERIOR MYOCARDIAL INFARCTION , OF INDETERMINATE AGE [30 ms Q WAVE IN V3/V4, OR R < 0.2 mV IN V4] Electronically signed by : CATIA DARNELL, 08/29/2024 16:47:01
--- NOTE | 2024-08-29 14:49 | PC.NURSE ---
Called [facility] for transfer of patient. Dr Handy talking to surgeon Dr Boyle for surgery and transfer.
[2024-08-29] MEDS: VANCOMYCIN/WATER FOR INJ (PEG) 1.25 GM/250 ML PIGGYBACK IV (15:13)
[2024-08-29] MEDS: METRONIDAZ/SOD CHL 500 MG/100 ML PIGGYBACK 100 MG IV (16:19)
[2024-08-29 16:21] LABS: Reflex Lactic Add Lactic Reflex
--- NOTE | 2024-08-29 16:23 | PC.NURSE ---
attempted to call report twice [facility] at [phone] and was told they would call us back for report, spinner continuous advised ambulance in ER awaiting go ahead
[2024-08-29 17:01] LABS: Lactic Acid Follow Up (RFLX 1) 1.3 mmol/L (0.7-2.1)
--- NOTE | 2024-08-29 17:27 | PC.NURSE ---
called report to natasha garcia on 5A at [facility]
--- NOTE | 2024-08-29 20:13 | PC.NURSE ---
Called [facility] at 20:10 for a transfer to [place]
== END 2024-08-29 21:25 | disposition short-term general hospital (02) ==
PROVIDERS: Emergency Provider Emergency Medicine; PCP Internal Medicine
DX: K81.9 Cholecystitis, unspecified (principal); R65.21 Severe sepsis with septic shock; I50.22 Chronic systolic (congestive) heart failure; J18.9 Pneumonia, unspecified organism; E80.6 Other disorders of bilirubin metabolism; N18.9 Chronic kidney disease, unspecified; R53.1 Weakness; I95.9 Hypotension, unspecified
CPT/HCPCS: 71045; 71275; 74177; 76705; 80053; 81001; 82803; 83605; 83735; 83880; 84100; 84145; 84436; 84443; 84484; 85007; 85025; 85027; 86140; 87040; 87086; 93005; 96361; 96365; 99291; J3372; J7120; Q9967

== ENCOUNTER 2024-09-06 11:11 | Outpatient (CLI) | payer MEDICARE, SELFPAY ==
[2024-09-06 11:55] VITALS: BP 122/76; PULSE 98; RESP 17
[2024-09-06] MEDS: SODIUM CHLORIDE 0.9% 50ML BAG 50 ML IV (11:55)
[2024-09-06] MEDS: CEFTRIAXONE SODIUM 2 GM in 0.9 % SODIUM CHLORIDE 100 ML IV (11:55)
[2024-09-06 12:30] VITALS: BP 131/57; PULSE 77; RESP 17; O2SAT 93
[2024-09-06] MEDS: MICAFUNGIN SODIUM 100 MG in 0.9 % SODIUM CHLORIDE 100 ML IV (12:30)
[2024-09-06 13:30] VITALS: BP 142/73; PULSE 102; RESP 17
== END 2024-09-06 14:20 | disposition home or self-care (01) ==
LOC: INF 11:13
PROVIDERS: PCP Internal Medicine; Visit Provider Internal Medicine Infectious Disease
DX: A41.9 Sepsis, unspecified organism (principal)
CPT/HCPCS: 96365; 96367; J0696; J2248

== ENCOUNTER 2024-09-07 10:45 | Outpatient (CLI) | payer MEDICARE, SELFPAY ==
[2024-09-07 11:08] VITALS: BP 139/97; PULSE 124; RESP 19; TEMP 36.9; O2SAT 95
[2024-09-07] MEDS: MICAFUNGIN SODIUM 100 MG in 0.9 % SODIUM CHLORIDE 100 ML IV (11:20)
[2024-09-07] MEDS: SODIUM CHLORIDE 0.9% 10ML FLUSH SYRINGE 10 ML IV (11:21)
[2024-09-07] MEDS: CEFTRIAXONE SODIUM 2 GM in 0.9 % SODIUM CHLORIDE 100 ML IV (12:11)
--- NOTE | 2024-09-07 13:27 | PC.NURSE ---
Addendum entered by Erika Ledesma RN 09/07/24 13:31: Patient off unit at 1302. Patient educated prior to leaving unit at 1255. Original Note: Patient educated on elevated BP and monitor blood pressure at home. Patient reports that he feels fine, denies headache, blurred vision, aura, chest pain and shortness of breath. Patient instructed to come back to the ER. Patient and son educated on signs and symptoms of worsening elevated BP. Per via telephone patient had taken all of his morning medications. Patient and son verbalized understanding.
== END 2024-09-07 23:59 | disposition home or self-care (01) ==
LOC: INF 10:46
PROVIDERS: PCP Internal Medicine; Visit Provider Internal Medicine Infectious Disease
DX: R10.84 Generalized abdominal pain (principal)
CPT/HCPCS: 96365; J0696; J2248

== ENCOUNTER 2024-09-08 11:02 | Outpatient (CLI) | payer MEDICARE, SELFPAY ==
[2024-09-08 11:10] VITALS: BP 126/84; PULSE 129; RESP 16; O2SAT 95
[2024-09-08] MEDS: CEFTRIAXONE SODIUM 2 GM in 0.9 % SODIUM CHLORIDE 100 ML IV (11:17)
[2024-09-08] MEDS: MICAFUNGIN SODIUM 100 MG in 0.9 % SODIUM CHLORIDE 100 ML IV (11:51)
== END 2024-09-08 12:05 | disposition home or self-care (01) ==
PROVIDERS: PCP Internal Medicine; Visit Provider Internal Medicine Infectious Disease
DX: K81.0 Acute cholecystitis (principal)
CPT/HCPCS: 96365; 96368; J0696; J2248

== ENCOUNTER 2024-09-08 12:57 | Inpatient (IN) | payer MEDICARE, SELFPAY ==
[2024-09-08] VITALS (20 sets, daily range): BP systolic 103–136; BP diastolic 57–102; PULSE 83–152; RESP 15–24; TEMP 36.4–36.8; O2SAT 86–98; BMI 23.7
--- NOTE | 2024-09-08 13:25 | ED_ITS ---
<Statement entered by Olman Cortés MD - 09/08/24 15:25> I was consulted by the JOSÉ MIGUEL, and we discussed the complexity of the problems being addressed. I approved the treatment and management plan for this patient's care in the emergency department, thus performing a substantive portion of the medical decision making. Olman Cortés MD, MOISE, FACEP Discharge Plan Disposition Patient Disposition: Admitted Condition: Fair Clinical Impressions Clinical Impression: Abscess, intra-abdominal, postoperative, V tach, Acute urinary retention Discharge ED Provider: Olman Cortés General Adult HPI General Chief complaint: Back Pain/Injury Stated complaint: back pain vomiting Time Seen by Provider: 09/08/24 13:06 Mode of Arrival: Wheelchair Source of Information: Patient and Spouse Limitations: No Limitations Description of Symptoms (Recalled from ER Triage Doc. by RN): pt was here getting outpatient infusion of iv antibx done when he started having back pain all over and n/v, pt has been in and out of facility several times over the last month. History of Present Illness HPI narrative: Patient presents complaining of generalized pain. He was recently discharged from [facility] after a cholecystectomy for a gallbladder abscess . He has been receiving outpatient Rocephin and micafungin, last dose was today. He does have a history of CHF with EF 15%. He has had some nausea and vomiting as well as body aches. Denies any fever. Denies any cough. He has had some difficulty urinating however his reports that this has improved. He has been having normal bowel movements. complaint: body aches Onset (ago): day(s) Radiation: non-radiation Severity: moderate Quality: aching Relieving factors: none Exacerbating factors: none Associated symptoms: nausea/vomiting; negative fever/chills Related Data Home Medications ?Medication ?Instructions ?Recorded ?Confirmed cholecalciferol (vitamin D3) 25 25 mcg PO DAILY 11/28/22 09/06/24 mcg (1,000 unit) capsule turmeric 100 mg-arely 150 1 cap PO DAILY 11/28/22 09/06/24 mg-olive 50 mg-oreg 150 mg-capryl capsule allopurinol 300 mg tablet 300 mg PO DAILY 07/23/24 09/06/24 atorvastatin 20 mg tablet 20 mg PO DAILY 07/23/24 09/06/24 tamsulosin 0.4 mg capsule 0.4 mg PO HS 07/23/24 09/06/24 ascorbic acid (vitamin C) 1,000 mg 1,000 mg PO DAILY 07/24/24 09/06/24 capsule aspirin 81 mg tablet,delayed 81 mg PO DAILY 07/24/24 09/06/24 release carvedilol 6.25 mg tablet 6.25 mg PO BID 08/27/24 09/06/24 ondansetron 4 mg disintegrating 4 mg PO QIDP PRN nausea and 08/29/24 09/06/24 tablet vomiting Previous Rx's ?Medication ?Instructions ?Recorded thiamine HCl (vitamin B1) 100 mg 100 mg PO DAILY #90 tabs 08/08/22 tablet apixaban 5 mg tablet (Eliquis) 5 mg PO BID 30 days #60 tabs 07/25/24 sacubitril 24 mg-valsartan 26 mg 1 tab PO BID 30 days #60 tabs 07/25/24 tablet (Entresto) empagliflozin 10 mg tablet 10 mg PO DAILY 30 days #30 tabs 08/28/24 (Jardiance) furosemide 40 mg tablet 40 mg PO DAILY 30 days #30 tabs 08/28/24 metoprolol succinate 50 mg 50 mg PO DAILY 30 days #30 tabs 08/28/24 tablet,extended release 24 hr (Toprol XL) spironolactone 25 mg tablet 25 mg PO DAILY 30 days #30 tabs 08/28/24 Allergies Allergy/AdvReac Type Severity Reaction Status Date / Time No Known Allergies Allergy Verified 08/27/24 09:15 [facility] Disclaimer: The information contained in this section may have been updated after the patient was seen, as this information can be updated by other users. Medical History Skin lesion of face Encephalopathy Biventricular heart failure Tobacco use Alcohol use Dementia Elevated troponin I level Pulmonary edema Atrial fibrillation Bilateral pleural effusion Acute hypoxemic respiratory failure Hyperlipidemia History of sleep apnea CAD (coronary artery disease) Acute HFrEF (heart failure with reduced ejection fraction) Gout High cholesterol Hypertension Surgical History History of open heart surgery Hx of heart artery stent Family History Other Coronary artery disease Hypertension Social History Smoking Status: Never smoker alcohol intake: current alcohol intake frequency: a few times a week substance use type: denies use current occupational status: retired Travel in the last 8 weeks: None household members: spouse housing: house marital status: Have you lived/traveled outside US in past 30 days?: No Contact w/someone who lives/traveled outside US past 30 days?: No Exposure to someone with infectious disease in past 14 days?: No Do you have a fever (greater than 100.4 F or 38 C)?: No Have you tested positive for COVID-19: No Exposed to someone with COVID-19 in past 14 days?: No Do you have a sore throat?: No Do you have a cough?: No Do you have any weakness?: No Do you have any diarrhea?: No Are you experiencing any unusual bleeding?: No Do you have any muscle aches/pain?: No Do you have any abdominal pain?: No Are you experiencing loss of taste or smell?: No Other Medical History Have you received the Flu Vaccine for this season: No Have you received the Pneumonia Vaccine: No ROS Obtained: Yes Systems reviewed as appropriate & no additional complaints except as documented Physical Exam General General appearance: alert and in no apparent distress Head Head exam: atraumatic and normocephalic Eye Eye exam: Present normal appearance and EOMI Chest Chest inspection: Present symmetric chest wall rise Respiratory Respiratory exam: Present normal lung sounds bilaterally; Absent wheezes or stridor Cardiovascular Cardiovascular exam: Present regular rate and normal rhythm; Absent systolic murmur Abdominal Exam Abdominal exam: Present soft and tenderness (mild generlaized); Absent distention Comment: Healing incision in the RUQ Extremities Exam Extremities exam: Present full ROM Neurological Exam Neurological exam: Present alert and oriented X3 Psychiatric Psychiatric exam: Present normal affect and normal mood Skin Skin exam: Present warm, dry and intact Medical Decision Making Medical Records Screening: Per USPSTF and CDC recommendations, given the prevalence of disease in our region, it is our hospital?s policy to screen for HIV and viral Hepatitis for all patients aged 18 and over and those with ongoing risk factors. [place] Inquiry Pt receiving controlled substance: No Vital Signs: 09/08/24 12:58 09/08/24 13:15 09/08/24 14:13 Temperature 98.2 F Temperature Source Oral Pulse Rate 152 H 105 H Pulse Rate [Left Radial] 122 H Respiratory Rate 20 19 Blood Pressure 134/97 H 111/75 Blood Pressure [Right Arm] 136/57 L Blood Pressure Mean [Right Arm] 83 02 Sat by Pulse Oximetry 95 86 L 94 L Oxygen Delivery Method Room Air Room Air Room Air 09/08/24 14:30 09/08/24 15:00 09/08/24 15:33 Temperature Temperature Source Pulse Rate 110 H 115 H 115 H Pulse Rate [Left Radial] Respiratory Rate 16 21 21 Blood Pressure 107/71 L 110/85 128/98 H Blood Pressure [Right Arm] Blood Pressure Mean [Right Arm] 02 Sat by Pulse Oximetry 94 L 95 97 Oxygen Delivery Method Room Air Room Air Room Air 09/08/24 15:57 09/08/24 16:00 09/08/24 16:15 Temperature Temperature Source Pulse Rate 106 H 113 H 102 H Pulse Rate [Left Radial] Respiratory Rate 17 19 17 Blood Pressure 123/86 118/79 136/83 Blood Pressure [Right Arm] Blood Pressure Mean [Right Arm] 02 Sat by Pulse Oximetry 94 L 94 L 93 L Oxygen Delivery Method Room Air Room Air Room Air 09/08/24 16:30 09/08/24 16:45 09/08/24 17:00 Temperature Temperature Source Pulse Rate 102 H 91 H 92 H Pulse Rate [Left Radial] Respiratory Rate 24 17 15 Blood Pressure 110/84 122/87 123/71 Blood Pressure [Right Arm] Blood Pressure Mean [Right Arm] 02 Sat by Pulse Oximetry 95 95 95 Oxygen Delivery Method Room Air Room Air Room Air 09/08/24 17:16 09/08/24 17:31 09/08/24 17:45 Temperature Temperature Source Pulse Rate 89 101 H 91 H Pulse Rate [Left Radial] Respiratory Rate 19 24 23 Blood Pressure 134/102 H 130/78 134/79 Blood Pressure [Right Arm] Blood Pressure Mean [Right Arm] 02 Sat by Pulse Oximetry 93 L 95 90 L Oxygen Delivery Method Room Air 09/08/24 18:00 09/08/24 18:22 Temperature 98.2 F Temperature Source Pulse Rate 83 108 H Pulse Rate [Left Radial] Respiratory Rate 15 20 Blood Pressure 121/77 118/74 Blood Pressure [Right Arm] Blood Pressure Mean [Right Arm] 02 Sat by Pulse Oximetry 91 L Oxygen Delivery Method Room Air Room Air Lab Data Lab Results 09/08/24 13:30: Urine Color Yellow, Urine Appearance Cloudy, Urine pH 5.5, Ur Specific [place] 1.010, Urine Protein 1+ A, Urine Glucose (UA) 3+, Urine Ketones Negative, Urine Blood 3+ A, Urine Nitrate Positive A, Urine Bilirubin 1+ A, Urine Urobilinogen 0.2, Ur Leukocyte Esterase Negative, Urine RBC 20-50, Urine WBC Occasional, Ur Squamous Epith Cells Occasional, Urine Bacteria Trace, SARS-CoV-2 (PCR) Not detected, Influenza A Untype (PCR) Not detected, Influenza Type B (PCR) Not detected 09/08/24 14:00: WBC 15.7 H, RBC 4.80, Hgb 14.2, Hct 42.1, MCV 87.7, MCH 29.6, MCHC 33.7, RDW 16.9, Plt Count 278, MPV 10.2, Neut % (Auto) 89.3 H, Lymph % (Auto) 2.2 L, [place] % (Auto) 6.8, Eos % (Auto) 0.0 L, Baso % (Auto) 0.3, Neut # (Auto) 14.0 H, Lymph # (Auto) 0.3 L, [place] # (Auto) 1.1 H, Eos # (Auto) 0.0, Baso # (Auto) 0.0, Total Counted 100, Neutrophils % (Manual) 87 H, Lymphocytes % (Manual) 6 L, Monocytes % (Manual) 7, Platelet Estimate Normal, RBC Morphology Normal, Sodium 130 L, Potassium 5.0, Chloride 101, Carbon Dioxide 23, Anion Gap 11.0, BUN 22 H, Creatinine 1.60 H, Estimated Creat Clear 43, Estimated GFR 42 L, Est GFR ( Amer) 51 L, Glucose 131 H, Lactate 1.6, Calcium 9.4, Total Bilirubin 1.2, AST 69 H, ALT 43, Alkaline Phosphatase 77, Total Protein 6.0 L, A lbumin 3.3 L, Globulin 2.7, Albumin/Globulin Ratio 1.2, Lipase 165 09/08/24 14:00 09/08/24 14:00 Orders (Tests/Meds): ED MEDICATIONS Generic Name Dose Route Start Last Admin Trade Name Freq PRN Reason Stop Dose Admin Apixaban 5 mg 09/08/24 21:00 Apixaban 5mg Tablet PO 10/08/24 20:59 BID ERIC Amiodarone HCl 900 mg/ 518 mls @ 34.533 mls/hr 09/08/24 15:06 09/08/24 15:59 Dextrose IV 09/09/24 06:06 1 mg/min .Q15H1M ERIC 34.53 mls/hr Administration Protocol 1 MG/MIN Ceftriaxone Sodium 2 gm/ 100 mls @ 200 mls/hr 09/09/24 11:00 Sodium Chloride IV 09/19/24 10:59 Q24H ERIC Micafungin Sodium 100 mg/ 100 mls @ 100 mls/hr 09/09/24 11:00 Sodium Chloride IV 09/19/24 10:59 Q24H ERIC Metoprolol Succinate 50 mg 09/09/24 09:00 Metoprolol Succinate Xl 50mg Tablet PO 10/09/24 08:59 DAILY ERIC Sodium Chloride 10 ml 09/08/24 13:15 Sodium Chloride 0.9% 10ml Flush Syringe IV 10/08/24 13:14 NEEDED PRN Maintain IV Site Tamsulosin HCl 0.4 mg 09/08/24 21:00 Tamsulosin 0.4mg Capsule PO 10/08/24 20:59 HS ERIC Discontinued Medications Generic Name Dose Route Start Last Admin Trade Name Freq PRN Reason Stop Dose Admin Amiodarone HCl 150 mg/ 103 mls @ 600 mls/hr 09/08/24 15:05 09/08/24 15:50 Dextrose IV 09/08/24 15:15 600 mls/hr ONCE ONE Administration ORDERS Category Date Time Status CT abdomen pelvis wo con Stat Cat Scan 09/08/24 14:36 Completed Complete Blood Count Auto Diff AMLAB Lab 09/09/24 06:00 Ordered Complete Blood Count Auto Diff Stat Lab 09/08/24 14:00 Completed Comprehensive Metabolic Panel AMLAB Lab 09/09/24 06:00 Ordered Comprehensive Metabolic Panel Stat Lab 09/08/24 14:00 Completed Lactic Acid Stat Lab 09/08/24 14:00 Completed Lipase Stat Lab 09/08/24 14:00 Completed Magnesium AMLAB Lab 09/09/24 06:00 Ordered Rapid PCR Covid and Flu A/B Stat Lab 09/08/24 13:30 Completed Urinalysis and Microscopic Stat Lab 09/08/24 13:30 Completed Blood Culture Stat Micro 09/08/24 16:37 Received Urine Culture Stat Micro 09/08/24 13:30 Received Medical Decision Narrative: In summary patient is a 79-year-old male who presents the emergency department for evaluation of body ache and vomiting. Patient is tachycardic upon arrival, afebrile. Healing abdominal incision with mild generalized abdominal tenderness. Differential diagnosis includes intra-abdominal abscess, sepsis, viral syndrome, dehydration Initial workup will be conducted with labs, CT abdomen pelvis, EKG. Initial workup reviewed by me no acute change on EKG, leukocytosis, fluid collection in the right upper quadrant as well as urinary retention on CT. Patient also had a significant run of V. tach in the emergency department. Started on an amiodarone drip after bolus. Not given fluid bolus given EF 15%. Upon repeat evaluation patient had improvement of symptoms with Schulz catheter insertion for his urinary retention. He does have some hematuria as well as nitrite positive urine, he is currently taking Rocephin. Will obtain culture. Given this discussed with hospitalist at [place] for transfer for continuity of care, at this time they do not have a bed available. Admitted to hospitalist service pending transfer to [place], accepting at [facility] Dr.Irfan Forde. Critical Care Critical Care Time Critical Care Time: Yes Attestation: On 09/08/24, the high probability of a clinically significant, sudden or life threatening deterioration of the following system(s) required my full and direct attention, intervention and personal management. The time I documented below is in addition to time spent performing reported procedures but includes the following listed in this critical care notation. Total Time Total Critical Care Time: 30
--- NOTE | 2024-09-08 13:27 | ECG_ITS ---
APPROVED REPORT Exam: Resting ECG HR:125 bpm ECG Measurements Heart Rate 125 AXES IN 230 P -29 QRSd 164 QRS -73 QT 368 T 114 QTc 442 Conclusion SINUS TACHYCARDIA WITH FIRST DEGREE AV BLOCK WITH OCCASIONAL VENTRICULAR PREMATURE COMPLEXES LEFT AXIS DEVIATION [QRS AXIS < -30] RIGHT BUNDLE BRANCH BLOCK [120+ ms QRS DURATION, UPRIGHT V1, 40+ ms S IN I/aVL/V4/V5/V6] MODERATE T-WAVE ABNORMALITY, CONSIDER LATERAL ISCHEMIA [-0.1+ mV T-WAVE IN I/aVL/V5/V6] ABNORMAL ECG UNCONFIRMED REPORT Electronically signed by : Gurvinder Cortés, 09/09/2024 15:31:47
[2024-09-08 13:40] LABS: Coronavirus 19, PCR Not Detected (NotDetected); Influenza A, PCR Not Detected (NotDetected); Influenza B, PCR Not Detected (NotDetected); Microscopic, Urine URINE MICROSCOPIC (MICROSCOPIC)
[2024-09-08 13:43] LABS: Appearance,Urine CLOUDY (Clear); Blood, Urine 3+ (Negative); Color,Urine YELLOW (Yellow); Glucose,Urine (UA) 3+ (Negative); Ketones,Urine Negative (Negative); Leukocyte Esterase,Urine Negative (Negative); Nitrate,Urine POSITIVE (Negative); PH,Urine 5.5 (5.0-8.5); Protein,Urine 1+ (Negative); Urobilinogen,Urine 0.2 EU/dl (0.2)
[2024-09-08 13:49] LABS: Bacteria,Urine Trace /lpf; Bilirubin,Urine 1+ (Negative); RBC,Urine 20-50 #/hpf (0-3); Squamous Epithelial Cell,Urine Occasional #/hpf (0-5); WBC,Urine Occasional #/hpf (0-3)
[2024-09-08 14:06] LABS: Basophils % 0.3 % (0.1-2.0); Hematocrit 42.1 % (42.0-52.0); Hemoglobin 14.2 g/dL (14.1-18.0); Lymphocytes # 0.3 K/mm3 (0.7-4.5); Lymphocytes % 2.2 % (10-50); Mean Corpuscular HGB Conc 33.7 g/dL (31.8-35.4); Mean Corpuscular Hemoglobin 29.6 pg (27.0-31.2); Mean Corpuscular Volume 87.7 fl (80-94); Mean Platelet Volume 10.2 fl (7.4-10.4); Monocytes # 1.1 K/mm3 (0.1-1.0); Monocytes % 6.8 % (1.7-9.3); Neutrophils % 89.3 % (37.0-80.0); Platelet Count 278 K/mm3 (142-424); Red Cell Distribution Width 16.9 % (11.5-17.5); White Blood Count 15.7 K/mm3 (4.8-10.8)
[2024-09-08 14:08] LABS: MANUAL DIFFERENTIAL MANUAL DIFFERENTIAL (MANUAL DIFF)
[2024-09-08 14:12] LABS: Albumin Level 3.3 g/dl (3.5-5.0); Chloride 101 mmol/L (98-107)
[2024-09-08 14:13] LABS: Sodium 130 mmol/L (136-145)
[2024-09-08 14:15] LABS: Alanine Aminotransferase 43 U/L (12-78); Albumin/Globulin Ratio 1.2 (1.1-1.8); Alkaline Phosphatase 77 U/L (38-126); Aspartate Amino Transferase 69 U/L (17-59); Bilirubin,Total 1.2 mg/dl (0.2-1.3); Blood Urea Nitrogen 22 mg/dl (9-20); Carbon Dioxide 23 mmol/L (22.0-30.0); Creatinine Clearance Estimated 43 mL/min (50-200); Estimated Glomerular Filt Rate 42 ml/min (>60); GFR (African American) 51 ML/MIN (>60); Globulin 2.7 g/dL (1.3-3.2); Lactic Acid 1.6 mmol/L (0.7-2.1)
[2024-09-08 14:16] LABS: Calcium 9.4 mg/dl (8.4-10.2); Glucose 131 mg/dl (74-100); Lipase 165 U/L (23-300)
[2024-09-08 14:22] LABS: Lymphocytes % 6 % (10-50); Monocytes % 7 % (2-9); Neutrophils % 87 % (42-76); RBC Morphology Normal; Total Cells Counted 100
[2024-09-08 14:23] LABS: Platelet Estimate Normal
--- NOTE | 2024-09-08 14:36 | CT_ITS ---
PROCEDURE INFORMATION: Exam: CT Abdomen And Pelvis Without Contrast Exam date and time: 09/08/2024 2:40 PM Age: 79 years old Clinical indication: Other: Recent ccy TECHNIQUE: Imaging protocol: Computed tomography of the abdomen and pelvis without contrast. Radiation optimization: All CT scans at this facility use at least one of these dose optimization techniques: automated exposure control; mA and/or kV adjustment per patient size (includes targeted exams where dose is matched to clinical indication); or iterative reconstruction. COMPARISON: CT ABDOMEN PELVIS W CON 08/29/2024 1:53 PM FINDINGS: Lungs: Minimal bibasilar infiltrate versus atelectasis. Pleural spaces: Small bilateral pleural effusions. Liver: The liver is normal in appearance. No focal liver mass or intrahepatic biliary dilatation. Gallbladder and biliary ducts: Patient is status post cholecystectomy. There is a 5 x 5 cm gas and fluid collection in the gallbladder fossa which could represent an abscess or biloma. Pancreas: The pancreas is normal in appearance. No evidence of pancreatic ductal dilatation. Spleen: Small calcified granulomas in the spleen. Adrenal glands: The adrenal glands are normal in appearance. Kidneys and ureters: Mild bilateral hydronephrosis and hydroureter but no obstructing calculi are identified. The obstructive uropathy is likely secondary to extrinsic compression of the distal ureters by the massively distended urinary bladder. Stomach and bowel: The small bowel loops are not thickened and are nondilated. There is colonic diverticulosis but no evidence of diverticulitis. Appendix: The appendix is not identified, but there are no inflammatory changes in its expected region. Intraperitoneal space: Small volume ascites. Vasculature: Unremarkable. No abdominal aortic aneurysm. Lymph nodes: Unremarkable. No enlarged lymph nodes. Urinary bladder: Significantly distended urinary bladder to the level of the umbilicus concerning for significant urinary retention. If the patient cannot void consider Schulz catheter placement. Reproductive: Prostatomegaly. Bones/joints: No acute osseous lesions. There are multilevel chronic degenerative changes throughout the spine. Soft tissues: Fat containing bilateral inguinal hernias. IMPRESSION: 1. 5 x 5 cm gas and fluid collection in the gallbladder fossa which could represent abscess or biloma. 2. New small volume ascites. 3. Significant urinary retention. The urinary bladder is distended to the umbilicus and there is resultant bilateral hydronephrosis and hydroureter. If the patient cannot void than consider Schulz catheter placement. 4. Small bilateral pleural effusions and bibasilar infiltrate versus atelectasis.
--- NOTE | 2024-09-08 15:09 | PC.NURSE ---
PT PLACED ON ZOLL MONITOR
--- NOTE | 2024-09-08 15:34 | PC.NURSE ---
Called [facility] for transfer. Swapna on phone with transfer center
[2024-09-08] MEDS: AMIODARONE HCL 150 MG in DEXTROSE 5 % IN WATER 100 ML 600 MG IV (15:50)
[2024-09-08] MEDS: AMIODARONE HCL 900 MG in DEXTROSE 5 % IN WATER 500 ML 34.53 MG IV (15:59)
--- NOTE | 2024-09-08 17:04 | EXP.HP ---
History of Present Illness *Admission Date: 09/08/24 *Reason for visit:: Sepsis, abdominal pain *History of present illness: Perico Huntley is a 79-year-old male with a medical history significant for CAD s/p stents, CABG, hypertension, dementia, and recent cholecystectomy with septic shock less than 2 weeks ago. He presented to outpatient infusion for antibiotic and antifungal therapy today. While at infusion he began complaining of having pain all over, nausea and vomiting, he was sent to the ER for evaluation. He has had numerous visits to our facility over the past year due to his medical complexity and complications. He has not been feeling well for some time. Patient was transferred to [place] 10 days ago with septic shock and cholecystitis. Underwent cholecystectomy. Has been at home with family who are caring for him currently. Today he is afebrile, hemodynamically stable. While in the ER, noted to have tachyarrhythmia concerning for V. tach on A-fib. Was started on amiodarone drip. Workup concerning for worsening white count compared to our last labs 10 days ago. Tachycardic. Abdominal CT obtained showing severely distended bladder and fluid collection at site of gallbladder fossa. Catheter placed with large volume of urine evacuated and improvement abdominal pain. Given his findings on imaging however and complexity, [place] was contacted for transfer. Patient accepted by Dr. Forde but there are unfortunately no beds at this time. Medicine consulted to admit and manage patient pending transfer to higher level of care. On evaluation, patient's had stepped away from bedside. He was unable to provide significant history. Most history obtained from charts and ER staff. Patient appears more comfortable after Schulz placement. Abdomen soft and nontender on exam. No drainage from surgical site. Heart rate better controlled on amiodarone drip. Appears to be in A-fib on telemetry. Reports having had a poor appetite lately. [facility] Disclaimer: The information contained in this section may have been updated after the patient was seen, as this information can be updated by other users. Medical History Skin lesion of face Encephalopathy Biventricular heart failure Tobacco use Alcohol use Dementia Elevated troponin I level Pulmonary edema Atrial fibrillation Bilateral pleural effusion Acute hypoxemic respiratory failure Hyperlipidemia History of sleep apnea CAD (coronary artery disease) Acute HFrEF (heart failure with reduced ejection fraction) Gout High cholesterol Hypertension Surgical History History of open heart surgery Hx of heart artery stent Family History Other Coronary artery disease Hypertension Social History Smoking Status: Never smoker alcohol intake: current alcohol intake frequency: a few times a week substance use type: denies use current occupational status: retired Travel in the last 8 weeks: None household members: spouse housing: house marital status: Have you lived/traveled outside [place] in past 30 days?: No Contact w/someone who lives/traveled outside US past 30 days?: No Exposure to someone with infectious disease in past 14 days?: No Do you have a fever (greater than 100.4 F or 38 C)?: No Have you tested positive for COVID-19: No Exposed to someone with COVID-19 in past 14 days?: No Do you have a sore throat?: No Do you have a cough?: No Do you have any weakness?: No Do you have any diarrhea?: No Are you experiencing any unusual bleeding?: No Do you have any muscle aches/pain?: No Do you have any abdominal pain?: No Are you experiencing loss of taste or smell?: No Other Medical History Have you received the Flu Vaccine for this season: No Have you received the Pneumonia Vaccine: No Review of Systems Review of Systems Review of systems:: unable to obtain (Patient poor historian) Meds Home Medications and Allergies Home Medications ?Medication ?Instructions ?Recorded ?Confirmed ?Type thiamine HCl (vitamin B1) 100 mg 100 mg PO DAILY #90 tabs 08/08/22 09/06/24 Rx tablet cholecalciferol (vitamin D3) 25 25 mcg PO DAILY 11/28/22 09/06/24 History mcg (1,000 unit) capsule turmeric 100 mg-arely 150 1 cap PO DAILY 11/28/22 09/06/24 History mg-olive 50 mg-oreg 150 mg-capryl capsule allopurinol 300 mg tablet 300 mg PO DAILY 07/23/24 09/06/24 History atorvastatin 20 mg tablet 20 mg PO DAILY 07/23/24 09/06/24 History tamsulosin 0.4 mg capsule 0.4 mg PO HS 07/23/24 09/06/24 History ascorbic acid (vitamin C) 1,000 mg 1,000 mg PO DAILY 07/24/24 09/06/24 History capsule aspirin 81 mg tablet,delayed 81 mg PO DAILY 07/24/24 09/06/24 History release apixaban 5 mg tablet (Eliquis) 5 mg PO BID 30 days #60 tabs 07/25/24 09/06/24 Rx sacubitril 24 mg-valsartan 26 mg 1 tab PO BID 30 days #60 tabs 07/25/24 09/06/24 Rx tablet (Entresto) carvedilol 6.25 mg tablet 6.25 mg PO BID 08/27/24 09/06/24 History empagliflozin 10 mg tablet 10 mg PO DAILY 30 days #30 tabs 08/28/24 09/06/24 Rx (Jardiance) furosemide 40 mg tablet 40 mg PO DAILY 30 days #30 tabs 08/28/24 09/06/24 Rx metoprolol succinate 50 mg 50 mg PO DAILY 30 days #30 tabs 08/28/24 09/06/24 Rx tablet,extended release 24 hr (Toprol XL) spironolactone 25 mg tablet 25 mg PO DAILY 30 days #30 tabs 08/28/24 09/06/24 Rx ondansetron 4 mg disintegrating 4 mg PO QIDP PRN nausea and 08/29/24 09/06/24 History tablet vomiting New Prescriptions to Start Prescriptions: Allergies Allergy/AdvReac Type Severity Reaction Status Date / Time No Known Allergies Allergy Verified 08/27/24 09:15 Exam Data for Last 24 hours Vital signs and Labs for Last 24 Hours: Temp Pulse Resp BP Pulse Ox O2 Del Method 98.2 F 105 H 19 111/75 94 L Room Air 09/08/24 12:58 09/08/24 14:13 09/08/24 14:13 09/08/24 14:13 09/08/24 14:13 09/08/24 14:13 Laboratory Results - last 24 hr 09/08/24 13:30: Urine Color Yellow, Urine Appearance Cloudy, Urine pH 5.5, Ur Specific [place] 1.010, Urine Protein 1+ A, Urine Glucose (UA) 3+, Urine Ketones Negative, Urine Blood 3+ A, Urine Nitrate Positive A, Urine Bilirubin 1+ A, Urine Urobilinogen 0.2, Ur Leukocyte Esterase Negative, Urine RBC 20-50, Urine WBC Occasional, Ur Squamous Epith Cells Occasional, Urine Bacteria Trace, SARS-CoV-2 (PCR) Not detected, Influenza A Untype (PCR) Not detected, Influenza Type B (PCR) Not detected 09/08/24 14:00: WBC 15.7 H, RBC 4.80, Hgb 14.2, Hct 42.1, MCV 87.7, MCH 29.6, MCHC 33.7, RDW 16.9, Plt Count 278, MPV 10.2, Neut % (Auto) 89.3 H, Lymph % (Auto) 2.2 L, [place] % (Auto) 6.8, Eos % (Auto) 0.0 L, Baso % (Auto) 0.3, Neut # (Auto) 14.0 H, Lymph # (Auto) 0.3 L, [place] # (Auto) 1.1 H, Eos # (Auto) 0.0, Baso # (Auto) 0.0, Total Counted 100, Neutrophils % (Manual) 87 H, Lymphocytes % (Manual) 6 L, Monocytes % (Manual) 7, Platelet Estimate Normal, RBC Morphology Normal, Sodium 130 L, Potassium 5.0, Chloride 101, Carbon Dioxide 23, Anion Gap 11.0, BUN 22 H, Creatinine 1.60 H, Estimated Creat Clear 43, Estimated GFR 42 L, Est GFR ( Amer) 51 L, Glucose 131 H, Lactate 1.6, Calcium 9.4, Total Bilirubin 1.2, AST 69 H, ALT 43, Alkaline Phosphatase 77, Total Protein 6.0 L, Albumin 3.3 L, Globulin 2.7, Albumin/Globulin Ratio 1.2, Lipase 165 I & O for Last 24 hours: Intake & Output 09/05/24 09/06/24 09/07/24 09/08/24 23:59 23:59 23:59 23:59 Weight 79.379 kg Constitutional Constitutional: mild distress, average body habitus, chronically ill appearing and cooperative *Routine HEENT Exam Head: Present normocephalic Eye: Present EOMI and PERRL ENT: Present mucous membranes moist *Routine Neck Exam Neck: Present supple; Absent lymphadenopathy *Routine Respiratory Exam Respiratory: Present CTA bilaterally; Absent rhonchi, stridor, wheezes or crackles *Routine Cardiovascular Exam Cardiovascular: Present irregularly irregular *Routine Abdominal Exam Abdominal: Present soft, normoactive bowel sounds and tenderness (Healing incision right upper quadrant, bandages clean with no drainage); Absent distended *Routine Rectal Exam Rectal:: deferred *Routine Genitalia Exam Genitalia:: deferred Comment:: Schulz catheter in place with blood-tinged urine *Routine Extremities Exam Extremities: Present edema; Absent cyanosis or clubbing Comments: Pitting edema up to knees 2+ *Routine Skin Exam Skin: Present warm; Absent rash *Routine Neurological Exam Neurological: Present alert, altered mental status and moving all extremities Assessment and Plan *Assessment and plan (1) Sepsis: Status: Acute Category: Medical Code(s): A41.9 - Sepsis, unspecified organism (2) Abscess, intra-abdominal, postoperative: Status: Acute Category: Medical Code(s): T81.43XA - Infection following a procedure, organ and space surgical site, initial encounter; K65.1 - Peritoneal abscess (3) V tach: Status: Acute Category: Medical Code(s): I47.20 - Ventricular tachycardia, unspecified (4) Acute urinary retention: Status: Acute Category: Medical Code(s): R33.8 - Other retention of urine (5) CKD (chronic kidney disease): Status: Acute Category: Medical Code(s): N18.9 - Chronic kidney disease, unspecified (6) HFrEF (heart failure with reduced ejection fraction): Status: Acute Category: Medical Code(s): I50.20 - Unspecified systolic (congestive) heart failure (7) Atrial fibrillation: Status: Acute Qualifiers: Atrial fibrillation type: unspecified Qualified Code(s): I48.91 - Unspecified atrial fibrillation Category: Medical Code(s): I48.91 - Unspecified atrial fibrillation (8) Dementia: Status: Acute Qualifiers: Dementia type: unspecified type Dementia severity: unspecified severity Dementia behavioral or psychological symptom: unspecified whether behavioral, psychotic, or mood disturbance or anxiety Qualified Code(s): F03.90 - Unspecified dementia, unspecified severity, without behavioral disturbance, psychotic disturbance, mood disturbance, and anxiety Category: Medical Code(s): F03.90 - Unspecified dementia, unspecified severity, without behavioral disturbance, psychotic disturbance, mood disturbance, and anxiety (9) CAD (coronary artery disease): Status: Acute Qualifiers: Coronary Disease-Associated Artery/Lesion type: [place] artery [place] vs. transplanted heart: [place] heart Associated angina: with other forms of angina Qualified Code(s): I25.118 - Atherosclerotic heart disease of [place] coronary artery with other forms of angina pectoris Category: Medical Code(s): I25.10 - Atherosclerotic heart disease of [place] coronary artery without angina pectoris (10) History of sleep apnea: Status: Acute Category: Medical Code(s): Z86.69 - Personal history of other diseases of the nervous system and sense organs Plan 79-year-old male with complex comorbidities who presented to our institution 10 days ago and was found to have septic shock secondary to cholecystitis. Transferred to [place] for further management. Underwent cholecystectomy. Currently receiving daily IV antibiotic and antifungal therapy. On presentation today, patient is quite fatigued. Complaining of pain. White count still elevated. Meeting sepsis criteria. Patient on wait list for transfer to [place] to higher level of care. Discussed case with ER physician, request admission for treatment pending transfer. I agreed to admit and will manage until patient transfers to higher level of care. Problems addressed as follows: Severe sepsis Recent septic shock that is resolved Cholecystitis status postcholecystectomy Fluid collection with air-fluid level in right upper quadrant concerning for abscess for seroma - White count 15.7, heart rate 108, concern for infection at site of cholecystectomy with fluid collection with air-fluid level seen on CT -Repeat CBC, CMP, magnesium ordered for the morning. - Presented today to outpatient infusion for his IV antibiotics and antifungals. Currently receiving 2 g ceftriaxone daily and 100 mg micafungin daily for his septic shock and cholecystitis which was treated 10 days ago at [place]. - Will continue this medication while he is with us, awaiting transfer to [place] for further management given his complex comorbidities, ongoing infection, need for infectious disease, urology, surgery in the setting of abscess at site from cholecystectomy along with his complexity of heart failure and tachyarrhythmia necessitating amiodarone. CKD 3 -Creatinine more or less at baseline at 1.6 and BUN of 22. Mild electrolyte disturbances with sodium 130, potassium 5.0. Caution with nephrotoxins. Urinary retention BPH -CT of abdomen per my review shows bladder the size of approximately a basketball. Severe retention with bladder distended up to umbilicus. Enlarged prostate on imaging. Schulz catheter placed, approximately 2 L of blood-tinged urine has voided since placement of catheter. Patient feeling better. Had hydronephrosis on CT. -Resume home tamsulosin. -Would benefit from urology evaluation when arrives to higher level of care Tachyarrhythmia Acute on chronic heart failure with reduced ejection fraction Atrial fibrillation -Initiated on amiodarone bolus and drip in the ER. Continue 900 mg IV infusion. Transition to 200 mg twice daily oral amiodarone thereafter if still admitted at our institution - In the setting of sepsis, will hold diuretics (spironolactone and Lasix). Will hold Entresto -Resume beta-clare with metoprolol succinate 50 mg daily -Continue Eliquis 5 mg twice daily Full code Eliquis 5 mg twice daily cardiac diet, n.p.o. at midnight in anticipation of transfer and possible surgical intervention
--- NOTE | 2024-09-08 18:20 | PC.NURSE ---
called report to nela garcia on second floor and answered all questions
--- NOTE | 2024-09-08 21:07 | EXP.EVENT.NO ---
Patient now has bed at [facility]. Potential for possible surgery related to his present condition question abscess, patient has Eliquis ordered on nurse asked me about this. I would later to know to hold the Eliquis at this point in time to give report and have the people that she gives report to understand that we have not given the nighttime Eliquis and whether or not they would want that given before his transfer. That way if there is some type of surgical intervention in the very near future dose would not have to be held due to anticoagulation,
--- NOTE | 2024-09-08 22:21 | PC.NURSE ---
PT LEFT WITH EMS AT THIS TIME
--- NOTE | 2024-09-08 22:37 | EXP.DC.SUM ---
General Admission date:: 09/08/24 Discharge date: 09/08/24 HPI HPI HPI: Perico Huntley is a 79-year-old male with a medical history significant for CAD s/p stents, CABG, hypertension, dementia, and recent cholecystectomy with septic shock less than 2 weeks ago. He presented to outpatient infusion for antibiotic and antifungal therapy today. While at infusion he began complaining of having pain all over, nausea and vomiting, he was sent to the ER for evaluation. He has had numerous visits to our facility over the past year due to his medical complexity and complications. He has not been feeling well for some time. Patient was transferred to [facility] 10 days ago with septic shock and cholecystitis. Underwent cholecystectomy. Has been at home with family who are caring for him currently. Today he is afebrile, hemodynamically stable. While in the ER, noted to have tachyarrhythmia concerning for V. tach on A-fib. Was started on amiodarone drip. Workup concerning for worsening white count compared to our last labs 10 days ago. Tachycardic. Abdominal CT obtained showing severely distended bladder and fluid collection at site of gallbladder fossa. Catheter placed with large volume of urine evacuated and improvement abdominal pain. Given his findings on imaging however and complexity, [facility] was contacted for transfer. Patient accepted by Dr. Forde but there are unfortunately no beds at this time. Medicine consulted to admit and manage patient pending transfer to higher level of care. On evaluation, patient's had stepped away from bedside. He was unable to provide significant history. Most history obtained from charts and ER staff. Patient appears more comfortable after Schulz placement. Abdomen soft and nontender on exam. No drainage from surgical site. Heart rate better controlled on amiodarone drip. Appears to be in A-fib on telemetry. Reports having had a poor appetite lately. Hospital Course Hospital Course Hospital Course: Patient was seen in our emergency room due to past surgery at [facility] and [facility] always go to be transferred there there was no bed available. We placed him on the floor for comfort and monitoring.. Was notified that bed was available did hold last dose of Eliquis in case surgery was needed. Have updated ambulance crew about this to make sure that the holding of the medication was included in the report when they have arrival Treatment during admission as below: 79-year-old male with complex comorbidities who presented to our institution 10 days ago and was found to have septic shock secondary to cholecystitis. Transferred to [facility] for further management. Underwent cholecystectomy. Currently receiving daily IV antibiotic and antifungal therapy. On presentation today, patient is quite fatigued. Complaining of pain. White count still elevated. Meeting sepsis criteria. Patient on wait list for transfer to [facility] to higher level of care. Discussed case with ER physician, request admission for treatment pending transfer. I agreed to admit and will manage until patient transfers to higher level of care. Problems addressed as follows: Severe sepsis Recent septic shock that is resolved Cholecystitis status postcholecystectomy Fluid collection with air-fluid level in right upper quadrant concerning for abscess for seroma - White count 15.7, heart rate 108, concern for infection at site of cholecystectomy with fluid collection with air-fluid level seen on CT -Repeat CBC, CMP, magnesium ordered for the morning. - Presented today to outpatient infusion for his IV antibiotics and antifungals. Currently receiving 2 g ceftriaxone daily and 100 mg micafungin daily for his septic shock and cholecystitis which was treated 10 days ago at [facility]. - Will continue this medication while he is with us, awaiting transfer to [facility] for further management given his complex comorbidities, ongoing infection, need for infectious disease, urology, surgery in the setting of abscess at site from cholecystectomy along with his complexity of heart failure and tachyarrhythmia necessitating amiodarone. CKD 3 -Creatinine more or less at baseline at 1.6 and BUN of 22. Mild electrolyte disturbances with sodium 130, potassium 5.0. Caution with nephrotoxins. Urinary retention BPH -CT of abdomen per my review shows bladder the size of approximately a basketball. Severe retention with bladder distended up to umbilicus. Enlarged prostate on imaging. Schulz catheter placed, approximately 2 L of blood-tinged urine has voided since placement of catheter. Patient feeling better. Had hydronephrosis on CT. -Resume home tamsulosin. -Would benefit from urology evaluation when arrives to higher level of care Tachyarrhythmia Acute on chronic heart failure with reduced ejection fraction Atrial fibrillation -Initiated on amiodarone bolus and drip in the ER. Continue 900 mg IV infusion. Transition to 200 mg twice daily oral amiodarone thereafter if still admitted at our institution - In the setting of sepsis, will hold diuretics (spironolactone and Lasix). Will hold Entresto -Resume beta-clare with metoprolol succinate 50 mg daily -Continue Eliquis 5 mg twice daily Exam Data for Last 24 hours Vital signs and Labs for Last 24 Hours: Temp Pulse Resp BP Pulse Ox O2 Del Method O2 Flow Rate 97.6 F 90 22 106/72 L 97 Nasal Cannula 2 09/08/24 20:00 09/08/24 21:00 09/08/24 21:00 09/08/24 21:00 09/08/24 21:00 09/08/24 21:00 09/08/24 21:00 Laboratory Results - last 24 hr 09/08/24 13:30: Urine Color Yellow, Urine Appearance Cloudy, Urine pH 5.5, Ur Specific [place] 1.010, Urine Protein 1+ A, Urine Glucose (UA) 3+, Urine Ketones Negative, Urine Blood 3+ A, Urine Nitrate Positive A, Urine Bilirubin 1+ A, Urine Urobilinogen 0.2, Ur Leukocyte Esterase Negative, Urine RBC 20-50, Urine WBC Occasional, Ur Squamous Epith Cells Occasional, Urine Bacteria Trace, SARS-CoV-2 (PCR) Not detected, Influenza A Untype (PCR) Not detected, Influenza Type B (PCR) Not detected 09/08/24 14:00: WBC 15.7 H, RBC 4.80, Hgb 14.2, Hct 42.1, MCV 87.7, MCH 29.6, MCHC 33.7, RDW 16.9, Plt Count 278, MPV 10.2, Neut % (Auto) 89.3 H, Lymph % (Auto) 2.2 L, Kend[place] % (Auto) 6.8, Eos % (Auto) 0.0 L, Baso % (Auto) 0.3, Neut # (Auto) 14.0 H, Lymph # (Auto) 0.3 L, [place] # (Auto) 1.1 H, Eos # (Auto) 0.0, Baso # (Auto) 0.0, Total Counted 100, Neutrophils % (Manual) 87 H, Lymphocytes % (Manual) 6 L, Monocytes % (Manual) 7, Platelet Estimate Normal, RBC Morphology Normal, Sodium 130 L, Potassium 5.0, Chloride 101, Carbon Dioxide 23, Anion Gap 11.0, BUN 22 H, Creatinine 1.60 H, Estimated Creat Clear 43, Estimated GFR 42 L, Est GFR ( Amer) 51 L, Glucose 131 H, Lactate 1.6, Calcium 9.4, Total Bilirubin 1.2, AST 69 H, ALT 43, Alkaline Phosphatase 77, Total Protein 6.0 L, Albumin 3.3 L, Globulin 2.7, Albumin/Globulin Ratio 1.2, Lipase 165 I & O for Last 24 hours: Intake & Output 09/06/24 09/07/24 09/08/24 09/09/24 05:59 05:59 05:59 05:59 Intake Total 210.633 / 210.633 Balance 210.633 / 210.633 Weight 175 lb *Routine Respiratory Exam Comments: Patient was alert oriented breathing without any assistance on the gurney as we were transporting him from the room to the emergency room to the ambulance *Routine Cardiovascular Exam Cardiovascular: Present RRR Comments: Patient was pink warm and dry *Routine Neurological Exam Neurological: Present alert, oriented X3 and CN II-XII intact Comments: Patient was interactive Results Data Completed and Pending Labs on day of discharge: Labs from last 24 hours 09/08/24 09/08/24 14:00 13:30 WBC 15.7 H RBC 4.80 Hgb 14.2 Hct 42.1 MCV 87.7 MCH 29.6 MCHC 33.7 RDW 16.9 Plt Count 278 MPV 10.2 Neut % (Auto) 89.3 H Lymph % (Auto) 2.2 L Kendall % (Auto) 6.8 Eos % (Auto) 0.0 L Baso % (Auto) 0.3 Neut # (Auto) 14.0 H Lymph # (Auto) 0.3 L Kendall # (Auto) 1.1 H Eos # (Auto) 0.0 Baso # (Auto) 0.0 Total Counted 100 Neutrophils % (Manual) 87 H Lymphocytes % (Manual) 6 L Monocytes % (Manual) 7 Platelet Estimate Normal RBC Morphology Normal Sodium 130 L Potassium 5.0 Chloride 101 Carbon Dioxide 23 Anion Gap 11.0 BUN 22 H Creatinine 1.60 H Estimated Creat Clear 43 Estimated GFR 42 L Est GFR ( Amer) 51 L Glucose 131 H Lactate 1.6 Calcium 9.4 Total Bilirubin 1.2 AST 69 H ALT 43 Alkaline Phosphatase 77 Total Protein 6.0 L Albumin 3.3 L Globulin 2.7 Albumin/Globulin Ratio 1.2 Lipase 165 Urine Color Yellow Urine Appearance Cloudy Urine pH 5.5 Ur Specific [place] 1.010 Urine Protein 1+ A Urine Glucose (UA) 3+ Urine Ketones Negative Urine Blood 3+ A Urine Nitrate Positive A Urine Bilirubin 1+ A Urine Urobilinogen 0.2 Ur Leukocyte Esterase Negative Urine RBC 20-50 Urine WBC Occasional Ur Squamous Epith Cells Occasional Urine Bacteria Trace SARS-CoV-2 (PCR) Not detected Influenza A Untype (PCR) Not detected Influenza Type B (PCR) Not detected Impressions Impressions: Status postsurgical complication with fluid accumulation where gallbladder used to be DS: Diagnosis Discharge Diagnosis (1) Sepsis: Status: Acute Code(s): A41.9 - Sepsis, unspecified organism Qualifiers: Sepsis acute organ dysfunction status: unspecified Sepsis type: sepsis due to unspecified organism Qualified Code(s): A41.9 - Sepsis, unspecified organism (2) Abscess, intra-abdominal, postoperative: Start date: 09/08/24 Start time: 22:40 Status: Acute Code(s): T81.43XA - Infection following a procedure, organ and space surgical site, initial encounter; K65.1 - Peritoneal abscess (3) V tach: Start date: 09/08/24 Start time: 22:40 Status: Acute Code(s): I47.20 - Ventricular tachycardia, unspecified Problem details: Stable at present (4) Acute urinary retention: Start date: 09/08/24 Status: Acute Code(s): R33.8 - Other retention of urine Problem details: Being treated (5) CKD (chronic kidney disease): Start date: 09/08/24 Start time: 22:40 Status: Acute Code(s): N18.9 - Chronic kidney disease, unspecified Problem details: Unchanged (6) HFrEF (heart failure with reduced ejection fraction): Start date: 09/08/24 Start time: 22:40 Status: Acute Code(s): I50.20 - Unspecified systolic (congestive) heart failure Problem details: No changes (7) Atrial fibrillation: Start date: 09/08/24 Status: Acute Code(s): I48.91 - Unspecified atrial fibrillation Qualifiers: Atrial fibrillation type: unspecified Qualified Code(s): I48.91 - Unspecified atrial fibrillation Problem details: Chronic condition (8) Dementia: Start date: 09/08/24 Start time: 22:41 Status: Acute Code(s): F03.90 - Unspecified dementia, unspecified severity, without behavioral disturbance, psychotic disturbance, mood disturbance, and anxiety Qualifiers: Dementia behavioral or psychological symptom: unspecified whether behavioral, psychotic, or mood disturbance or anxiety Dementia severity: unspecified severity Dementia type: unspecified type Qualified Code(s): F03.90 - Unspecified dementia, unspecified severity, without behavioral disturbance, psychotic disturbance, mood disturbance, and anxiety Problem details: Patient was interactive (9) CAD (coronary artery disease): Start date: 09/08/24 Status: Acute Code(s): I25.10 - Atherosclerotic heart disease of [place] coronary artery without angina pectoris Qualifiers: Associated angina: with other forms of angina Coronary Disease-Associated Artery/Lesion type: [place] artery [place] vs. transplanted heart: [place] heart Qualified Code(s): I25.118 - Atherosclerotic heart disease of [place] coronary artery with other forms of angina pectoris Problem details: No changes (10) History of sleep apnea: Start date: 09/08/24 Start time: 22:41 Status: Acute Code(s): Z86.69 - Personal history of other diseases of the nervous system and sense organs Problem details: Was not evaluated during short stay on floor Meds Home Medications and Allergies Home Medications ?Medication ?Instructions ?Recorded ?Confirmed ?Type thiamine HCl (vitamin B1) 100 mg 100 mg PO DAILY #90 tabs 08/08/22 09/06/24 Rx tablet cholecalciferol (vitamin D3) 25 25 mcg PO DAILY 11/28/22 09/06/24 History mcg (1,000 unit) capsule turmeric 100 mg-arely 150 1 cap PO DAILY 11/28/22 09/06/24 History mg-olive 50 mg-oreg 150 mg-capryl capsule allopurinol 300 mg tablet 300 mg PO DAILY 07/23/24 09/06/24 History atorvastatin 20 mg tablet 20 mg PO DAILY 07/23/24 09/06/24 History tamsulosin 0.4 mg capsule 0.4 mg PO HS 07/23/24 09/06/24 History ascorbic acid (vitamin C) 1,000 mg 1,000 mg PO DAILY 07/24/24 09/06/24 History capsule aspirin 81 mg tablet,delayed 81 mg PO DAILY 07/24/24 09/06/24 History release apixaban 5 mg tablet (Eliquis) 5 mg PO BID 30 days #60 tabs 07/25/24 09/06/24 Rx sacubitril 24 mg-valsartan 26 mg 1 tab PO BID 30 days #60 tabs 07/25/24 09/06/24 Rx tablet (Entresto) carvedilol 6.25 mg tablet 6.25 mg PO BID 08/27/24 09/06/24 History empagliflozin 10 mg tablet 10 mg PO DAILY 30 days #30 tabs 08/28/24 09/06/24 Rx (Jardiance) furosemide 40 mg tablet 40 mg PO DAILY 30 days #30 tabs 08/28/24 09/06/24 Rx metoprolol succinate 50 mg 50 mg PO DAILY 30 days #30 tabs 08/28/24 09/06/24 Rx tablet,extended release 24 hr (Toprol XL) spironolactone 25 mg tablet 25 mg PO DAILY 30 days #30 tabs 08/28/24 09/06/24 Rx ondansetron 4 mg disintegrating 4 mg PO QIDP PRN nausea and 08/29/24 09/06/24 History tablet vomiting Amiodarone HCl [Cordarone 1 mg/min IV 09/08/24 Rx 900mg/18mL vial] 900 mg New Prescriptions to Start Prescriptions: Amiodarone HCl [Cordarone 900mg/18mL vial] 900 mg Dextrose 5 % in Water [D5W 500mL IV] 500 ml 1 mg/min IV Allergies Allergy/AdvReac Type Severity Reaction Status Date / Time No Known Allergies Allergy Verified 08/27/24 09:15 Discharge Plan Disposition Patient Disposition: Xfer Short-Term Hosp Condition: Fair Discharge Order Discharge Orders: Discharge Order (Routine); Ordered 09/08/24 Ordered By: Elías Pavon Follow up Plan Prescriptions/Medication Reconciliation: New Amiodarone HCl [Cordarone 900mg/18mL vial] 900 MG Dextrose 5 % in Water [D5W 500mL IV] 500 ML 1 mg/min IV Ordered By: Elías Pavon, [employer] Last Taken: 09/08/24 15:59 34.53 mls/hr Protocol: Amiodarone IV Protocol Text: Infuse at 1mg/min (34.5 ml/hr) for 6 hrs, then continue at 0.5mg/min (17.3 ml/hr) for 18 hours. Continued carvedilol 6.25 mg tablet 6.25 mg PO BID Patient Comments: TAKE 1 TABLET BY MOUTH TWICE DAILY. TAKE WITH FOOD thiamine HCl (vitamin B1) 100 mg tablet 100 mg PO DAILY Qty: 90 1RF cholecalciferol (vitamin D3) 25 mcg (1,000 unit) capsule 25 mcg PO DAILY [id number]-capry 100 mg-150 mg- 50 mg-150 mg capsule 1 cap PO DAILY Jardiance 10 mg tablet 10 mg PO DAILY 30 Days Qty: 30 0RF metoprolol succinate [Toprol XL] 50 mg tablet extended release 24 hr 50 mg PO DAILY 30 Days Qty: 30 0RF spironolactone 25 mg tablet 25 mg PO DAILY 30 Days Qty: 30 0RF furosemide 40 mg tablet 40 mg PO DAILY 30 Days Qty: 30 0RF tamsulosin 0.4 mg capsule 0.4 mg PO HS allopurinol 300 mg tablet 300 mg PO DAILY atorvastatin 20 mg tablet 20 mg PO DAILY ascorbic acid (vitamin C) 1,000 mg capsule 1,000 mg PO DAILY aspirin 81 mg tablet,delayed release (DR/EC) 81 mg PO DAILY sacubitril-valsartan [Entresto] 24-26 mg Tablet 1 tab PO BID 30 Days Qty: 60 0RF Eliquis 5 mg Tablet 5 mg PO BID 30 Days Qty: 60 0RF ondansetron 4 mg tablet,disintegrating 4 mg PO QIDP PRN (Reason: nausea and vomiting) Problem Reconciliation Problems Reviewed?: Yes Patient Discharge Instructions ACTIVITY: Other DIET: other Stand Alone Forms: Transfer Record Print Language: [place] Providers Primary Care Provider: Marcelo Lara Admit Provider: Gurvinder Gallego Attending Provider: Gurvinder Gallego
== END 2024-09-08 22:21 | disposition short-term general hospital (02) | DRG 862 ==
LOC: ER 13:07 → 2ND 17:10
PROVIDERS: Physician Assistant; Admitting Provider Internal Medicine Adolescent Medicine; Emergency Provider Student in an Organized Health Care Education/Training Program; PCP Internal Medicine; Visit Provider Internal Medicine Adolescent Medicine
DX: T81.44XA Sepsis following a procedure, initial encounter (principal); I50.23 Acute on chronic systolic (congestive) heart failure; R65.20 Severe sepsis without septic shock; I13.0 Hypertensive heart and chronic kidney disease with heart failure and stage 1 through stage 4 chronic kidney disease, or unspecified chronic kidney disease; I47.20 Ventricular tachycardia, unspecified; N18.30 Chronic kidney disease, stage 3 unspecified; R33.9 Retention of urine, unspecified; N40.0 Benign prostatic hyperplasia without lower urinary tract symptoms; M10.9 Gout, unspecified; I48.91 Unspecified atrial fibrillation; I25.10 Atherosclerotic heart disease of native coronary artery without angina pectoris; F03.90 Unspecified dementia, unspecified severity, without behavioral disturbance, psychotic disturbance, mood disturbance, and anxiety; Z79.01 Long term (current) use of anticoagulants; Z79.82 Long term (current) use of aspirin; Z90.49 Acquired absence of other specified parts of digestive tract; Z79.899 Other long term (current) drug therapy; Z95.1 Presence of aortocoronary bypass graft; Z98.890 Other specified postprocedural states
CPT/HCPCS: 51702; 74176; 80053; 81001; 83605; 83690; 85007; 85025; 87040; 87086; 87636; 93005; 99291; J0282; J7060